=== PATIENT | male | born 1935 | race African-American/Black ===

== ENCOUNTER 2017-05-01 04:37 | Inpatient (IN) ==
[2017-05-01] MEDS ORDERED: ALBUTEROL 2.5 MG/3 ML NEB RESP TX STA (04:52)
[2017-05-01] MEDS ORDERED: methylPREDNISolone SOD SUC 125 MG/2 ML VIAL IV STA ×2 (04:52→05:59)
[2017-05-01] MEDS ORDERED: methylPREDNISolone SOD SUC 125 MG/2 ML VIAL ONE ×2 (05:05→06:00)
[2017-05-01 05:17] LABS: Basophils # 0.1 10*3/uL (0.0-0.2); Basophils % 0.9 % (0.0-0.8); Eosinophils # 0.5 10*3/uL (0.0-0.87); Eosinophils % 9.1 % (0.00-10.9); Hematocrit 39.8 VOL% (42.0-52.0); Hemoglobin 13.7 GM/DL (14.0-18.0); Immature Granulocytes % 0.4 %; Immature Granulocytes Absolute 0.02 #; Lymphocytes # 1.5 10*3/uL (1.4-4.0); Lymphocytes % 28.1 % (21.2-54.2); Mean Corpuscular HGB Conc 34.4 GM/DL (32-36); Mean Corpuscular Hemoglobin 32 PG (27-34); Mean Corpuscular Volume 91.9 FL (87-102); Mean Platelet Volume 10.4 FL (9.6-12.0); Monocytes # 0.8 10*3/uL (0.11-0.8); Monocytes % 14.9 % (1.7-12.7); Neutrophils # 2.5 10*3/uL (1.4-7.4); Neutrophils % 46.6 % (38.7-73.9); Platelet Count 272 T/CUMM (130-400); Red Blood Count 4.33 MC/CUMM (3.8-5.5); Red Cell Distribution Width 12.6 % (9.3-17.3); White Blood Count 5.4 T/CUMM (4-12)
--- NOTE | 2017-05-01 05:19 | Emergency Department Note ---
Adrian Boone Hilary, am scribing for, and in the presence of, Benedict Xiao MD 04:55. Dameon Boone Robert M, MD, personally performed the services described in this documentation, ascribed by Regi Campbell in my presence, and it is both accurate and complete 519 . Arrival - Arrival Chief Complaint: Shortness of Breath Stated Complaint: sob ED Nursing Triage Note: Pt brought in by EMS with c/o SOB that started 2 days ago ,but gotten worse tonight. Pt was given albuterol per EMS and is breatheing better after treatment. Pt does has hx copd. No distress noted at this time. Mode of Arrival: Stretcher Limitations: No Limitations Source: Patient, RN Notes Reviewed Time Seen by Provider: 05/01/17 04:48 - History of Present Illness HPI Narrative: Pt is a 82 y/o black male brought into the ED via EMS with c/o shortness of breath which onset 3 days ago. Pt states that his at home oxygen isn't helping and that his SOB worsened today. No other complaints or problems stated in the ED. Onset (ago): day(s) Consistency: constant Severity: moderate Severity scale (1-10): 3 Allergies/Adverse Reactions: Allergies Allergy/AdvReac Type Severity Reaction Status Date / Time Penicillins AdvReac Unknown Unknown/Unable Verified 05/01/17 04:49 to obtain Home Medications: Home Medications Medication Instructions Recorded Confirmed Type Ranitidine Tab [Zantac Tab] 150 mg PO BID 03/28/16 05/01/17 History Tamsulosin HCl 0.4 mg PO BID 03/28/16 05/01/17 History Albuterol Sulfate [Ventolin HFA] 2 puff INH Q4H PRN 10/01/16 05/01/17 History Hydrocodone/Acetaminophen 7.5 05/01/17 History [Hydrocodon-Acetaminoph 7.5-325] Triamterene/Hydrochlorothiazid PO DAILY 05/01/17 History [Triamterene-Hctz 37.5-25 mg Cp] Review of System - Review of System 12 point system: reviewed and no additional remarkable complaints except as stated - Review of System Constitutional: Absent: fever Respiratory: Present: respiratory distress (SOB) Cardiovascular: Absent: chest pain Medical,Surgical,& Family Hx - Medical History Cardio: History of: Hypertension No history of: Cerebrovascular Disease, CHF, CAD, VT, Valvular Heart Disease Neurology: No history of: Brain Aneurysm, Cerebral Hemorrhage, Cerebrovascular Accident , TIA, Vertigo Endocrine: No history of: Diabetes Mellitus (NIDDM) Respiratory: History of: COPD (O2 dependent) Genitourinary: History of: Bladder Problem (BPH), Kidney Stones Gastrointestinal: History of: 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; Abnormal CT in March 2016), GI Problems (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; hiatal hernia;) Musculoskeletal: History of: Musculoskeletal Problems (large "cyst" to right upper chest/ shoulder; arthritis) Hematology: History of: Clotting Problems (DVT right leg) Other: No history of: Anesthesia Reactions - Surgical History Neurologic Surgeries: Patient denies: Brain Aneurysm, Cerebral Hemorrhage Abdominal Surgeries: Surgical HX of: Abdominal Surgery, Appendectomy, Cholecystectomy, Colonoscopy, EGD Reproductive Surgeries: Patient denies;: Genitourinary Surgery - Family History Family History: Reports;: Family Hypertension (Sister) - Social History Smoking Status: Former smoker Frequency of Alcohol Use: None Type of Drug Use: None Exam Vital Signs: Vital Signs Temperature 97.1 F L 05/01/17 04:48 Pulse Rate 86 05/01/17 05:15 Respiratory Rate 22 05/01/17 05:15 Blood Pressure 156/89 05/01/17 04:42 O2 Sat by Pulse Oximetry 100 05/01/17 05:15 - General General appearance: alert, in distress (moderate distress) - Head Head exam: Present: atraumatic, normocephalic - Eye Eye exam: Present: normal appearance, PERRL, EOMI - ENT ENT exam: Present: mucous membranes moist, TM's normal bilaterally. Absent: mucous membranes dry - Neck Neck exam: Present: full ROM, trachea midline. Absent: tenderness - Chest Chest inspection: Present: symmetric chest wall rise. Absent: tenderness - Respiratory Respiratory exam: Present: wheezes, other (speaks in 3-4 word sentences) - Cardiovascular Cardiovascular exam: Present: regular rate, normal rhythm, normal heart sounds. Absent: murmur, rubs, gallop - Abdominal Exam Abdominal exam: Present: soft, normal bowel sounds. Absent: distention, tenderness - Extremities Exam Extremities exam: Present: full ROM. Absent: tenderness - Back Exam Back exam: Present: full ROM. Absent: tenderness - Neurological Exam Neurological exam: Present: alert, oriented X3, CN II-XII intact. Absent: motor sensory deficit - Psychiatric Psychiatric exam: Present: normal affect, normal mood - Skin Skin exam: Present: warm, dry, intact, normal color. Absent: rash Course - Consultations Consultation #1: Dr. Villalta will admit the patient to hospitalist service. Time: 05:44 Results - Labs CBC & BMP: 05/01/17 05:12 Lab Results: I have reviewed the patients labs - EKG EKG results: interpreted by ERMD, WNL, sinus rhythm - Diagnostic Findings Procedure: Chest x-ray: image reviewed by me (Right basilar costophrenic blunting unchanged from previous studies. No acute airspace opacity.) Disposition Clinical Impression: Acute exacerbation of chronic obstructive airways disease, On home oxygen therapy Case discussed with: patient, patient's family Disposition: Still a Patient Condition: Stable Time of Disposition: 05:44
[2017-05-01 05:43] LABS: Albumin 3.9 G/DL (3.4-5.0); Calcium 9.4 MG/DL (8.5-10.1); Osmolality,Calculated 279.3 MOS/KG (273-304); Potassium 4.3 MMOL/L (3.5-5.1); Total Protein 6.6 G/DL (6.4-8.3)
[2017-05-01 06:02] LABS: Apearance,Urine CLEAR (Clear); Bilirubin,Urine Negative (Negative); Blood, Urine Negative (Negative); Glucose,Urine (UA) Negative (Negative); Ketones,Urine Negative (Negative); Nitrite,Urine Negative (Negative); Protein,Urine Negative; RBC,Urine <1 /HPF (0-4); Squamous Epithelial Cell,Urine Occasional /HPF (0-10); Urine Color Straw (Yellow); Urine Specific Gravity 1.008 (1.001-1.035); Urine Urobilinogen < 2.0 EU/DL (0.2-1.0); WBC,Urine <1 /HPF (0-6)
[2017-05-01] MEDS ORDERED: ALBUTEROL 2.5 MG/3 ML NEB RESP TX PRN (06:11)
--- NOTE | 2017-05-01 06:11 | XRay Report ---
Portable chest Date: 05/01/2017 Clinical history: Shortness of breath Comparison: 03/10/2017 Technique: Portable AP sitting chest Findings: The heart remains normal in size. Chronic pleural and parenchymal findings at the right lung base. Tubular device projecting in this location. Stable mediastinum and osseous structures. Impression: Chronic scarring at the right lung base with residual atelectasis and pleural thickening which makes it difficult to exclude a persistent small right pleural effusion. Overlying tubular device. PROCEDURE INTERPRETED AT [facility] DEPARTMENT OF RADIOLOGY Final Report Signed by: Dr. Yoly Delgadillo
--- NOTE | 2017-05-01 06:20 | Hospitalist History & Physical ---
Assessment and Plan (1) Orthopnea Status: Acute Assessment and plan: Patient breathing is a lot better uncomfortable while seated with legs dangling on the bed. Chest x-ray does suggest pulmonary edema with cephalization of blood vessels are concerned that the patient may have a recent extent of diastolic dysfunction. His echocardiogram done in September 2016 did show preserved left ventricular function. I will request repeat of the echocardiogram on this admission. Current Visit: Yes (2) Accelerated hypertension Status: Acute Assessment and plan: Resume home medication. We will give the patient some hydralazine 10 mg IV for systolic blood pressure greater than 180. States his home medication for blood pressure if there is use of TRAMAINE inhibitor as depressed thoughts with an angiotensin receptor sajan. Current Visit: Yes (3) Abnormal EKG Status: Acute Current Visit: Yes (4) Acute exacerbation of chronic obstructive airways disease Status: Acute Assessment and plan: Aggressive systemic steroid use aggressive beta 2 agonist use and use of ipratropium bromide. Patient should have sputum evaluated for possible lower respiratory infection also evaluate for fungal elements for fear possibility of allergic bronchospastic aspergillosis. Also check IgE levels. Current Visit: Yes History of Present Illness Chief complaint: Respiratory distress/orthopnea History of present illness: Mr. Mitchell is a 82 year old male brought into the ED via EMS with c/o shortness of breath which onset 3 days ago. Pt states that his at home oxygen isn't helping and that his SOB worsened today. I noticed that patient has significant orthopnea especially of her being moved. Patient also has accelerated hypertension. I looked at his chest x-ray which shows no consolidation by the prominence of blood vessels in the upper lung simpson. Also noted tenting of the diaphragm on the right side. Echocardiogram done September 2016 showed an EF about 60%. No intracardiac chamber masses. No mention of diastolic dysfunction at that time it looks like it to him is been. The possibility of vegetations. It may be nice to repeat an echocardiogram targeting cardiac function at this time. Home Medications Medication Instructions Recorded Confirmed Type Ranitidine Tab [Zantac Tab] 150 mg PO BID 03/28/16 05/01/17 History Tamsulosin HCl 0.4 mg PO BID 03/28/16 05/01/17 History Albuterol Sulfate [Ventolin HFA] 2 puff INH Q4H PRN 10/01/16 05/01/17 History Hydrocodone/Acetaminophen 7.5 05/01/17 History [Hydrocodon-Acetaminoph 7.5-325] Triamterene/Hydrochlorothiazid PO DAILY 05/01/17 History [Triamterene-Hctz 37.5-25 mg Cp] Allergies Allergy/AdvReac Type Severity Reaction Status Date / Time Penicillins AdvReac Unknown Unknown/Unable Verified 05/01/17 04:49 to obtain Medical,Surgical,& Family Hx - Medical History Cardio: History of: Hypertension No history of: Cerebrovascular Disease, CHF, CAD, CT, Valvular Heart Disease Neurology: No history of: Brain Aneurysm, Cerebral Hemorrhage, Cerebrovascular Accident , TIA, Vertigo Endocrine: No history of: Diabetes Mellitus (NIDDM) Respiratory: History of: COPD (O2 dependent) Genitourinary: History of: Bladder Problem (BPH), Kidney Stones Gastrointestinal: History of: 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; Abnormal CT in March 2016), GI Problems (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; hiatal hernia;) Musculoskeletal: History of: Musculoskeletal Problems (large "cyst" to right upper chest/ shoulder; arthritis) Hematology: History of: Clotting Problems (DVT right leg) Other: No history of: Anesthesia Reactions - Surgical History Neurologic Surgeries: Patient denies: Brain Aneurysm, Cerebral Hemorrhage Abdominal Surgeries: Surgical HX of: Abdominal Surgery, Appendectomy, Cholecystectomy, Colonoscopy, EGD Reproductive Surgeries: Patient denies;: Genitourinary Surgery - Family History Family History: Reports;: Family Hypertension (Sister) - Social History Smoking Status: Former smoker Frequency of Alcohol Use: None Type of Drug Use: None Review of systems: 12 point system assessment was done. Patient is obviously short of breath with a very poor exercise tolerance. There is orthopnea. There is diffuse wheezing. Tachycardia and accelerated hypertension noted. Complaining of left shoulder pain with limitation of movement in that shoulder. He has got a huge synovial cyst into the anterior aspect of the right shoulder which is this is been there since her last year. Denies acute injury to the left shoulder is possibility of rotator cuff injury given the nature limitation of movement. Exam - Constitutional Vitals: Period Temp Pulse Resp BP Sys/Garcia Pulse Ox Last 24 Hr 97.1 F-97.1 F 81-91 22-26 156-156/89-89 98-100 General appearance: under weight, other (Possible pulmonary cachexia moderate respiratory distress) - Head Head exam: Present: normocephalic, atraumatic - Eye Eye exam: Present: EOMI Pupils: Present: KRISTINA - ENT ENT exam: Present: normal oropharynx - Neck Neck exam: Present: normal inspection, other (Neck is supple no adenopathy no thyromegaly midline trachea no stridor) - Respiratory Respiratory exam: Present: other (Bilateral wheezing distant lung sounds prolonged expiratory phase) - Cardiovascular Cardiovascular exam: Present: tachycardia, other (Sinus control) - GI/Abdominal GI/Abdominal exam: Present: normal bowel sounds, soft - Extremities Exam Extremities exam: Present: other (Significant limitation of movement of the left shoulder patient complaining of pain in that shoulder. No ocular cyanosis no clubbing of the digits) - Neurological Exam Neurological exam: Present: alert, oriented X3, CN II-XII intact - Psychiatric Psychiatric exam: Present: anxious, other (Respiratory distress) - Skin Skin exam: Present: normal color, warm, dry Results - Labs CBC & BMP: 05/01/17 05:12 05/01/17 05:12 Lab Results: I have reviewed the past 24 hour labs
[2017-05-01] MEDS ORDERED: ALBUTEROL/IPRATROPIUM 3 ML NEB RESP TX PRN (06:33)
[2017-05-01 07:18] LABS: Calcium 9.4 MG/DL (8.5-10.1); Osmolality,Calculated 279.3 MOS/KG (273-304); Potassium 4.4 MMOL/L (3.5-5.1)
--- NOTE | 2017-05-01 07:54 | EKG Report ---
Stationary ECG Study [facility] ER Test Date: 05/01/2017 4:45:51 AM Pat Name: YANI NGUYEN Department: Room: EDWAIT Gender: M Rail Operator: SR : [id number] Requested by: Benedict Xiao Order Number: [id number] Reading MD: MARLYN BARBER Intervals [place] Rate: 82 P: 88 OR: 187 QRS: 87 QRSD: 86 T: 89 QT: 351 QTc: 390 Interpretive Statements SINUS RHYTHM POSSIBLE ANTERIOR MYOCARDIAL INFARCTION, PREVIOUSLY PRESENT IN 02/11/2017 TRACING Electronically Signed On 05-02-17 07:07:48 CDT by MARLYN BARBER [email or web address]
[2017-05-01] MEDS: ALBUTEROL/IPRATROPIUM 3 ML NEB RESP TX SCH ×3 (08:00→21:00)
[2017-05-01] MEDS ORDERED: TRIAMTERENE/HCTZ 37.5-25 MG CAPSULE PO SCH (09:00)
[2017-05-01] MEDS: TAMSULOSIN 0.4 MG CAPSULE PO SCH ×2 (09:13→21:06)
[2017-05-01] MEDS: amLODIPine 5 MG TABLET PO SCH (09:13)
[2017-05-01] MEDS: methylPREDNISolone SOD SUC 125 MG/2 ML VIAL IV SCH ×2 (09:13→16:00)
[2017-05-01] MEDS: FAMOTIDINE 20 MG TABLET PO SCH ×2 (10:32→21:06)
[2017-05-01] MEDS: MONTELUKAST 10 MG TABLET PO SCH (10:32)
--- NOTE | 2017-05-01 11:48 | ECHO Report ---
Asif Mitchell 05/01/2017 Exam Date: 08:37 Referring Physician: Paradise Templeton Technologist: TOAN Age: 82 Ht (in): 64 Wt (lb): 127 MExam Location: [facility] Gender: Echo [id number]: SOB, HTN, COPD, orthopnea, edemaIndications: BP: / HR: sinus arrythmiaRhythm: Technically difficult studyTechnical Quality: IMPRESSIONS Normal chamber sizes Normal to hyperdynamic LV systolic function with ejection fraction estimated 65-70% without segmental wall abnormality Aortic sclerosis without stenosis 1+ tricuspid regurgitation with RVSP 18 mmHg plus RAP MEASUREMENTS (Male / Female) Normal Values 2D ECHO LV Diastolic Diameter PLAX 2.5 cm 4.2 - 5.9 / 3.9 - 5.3 cm LV Systolic Diameter PLAX 1.4 cm LV Fractional Shortening PLAX 41.7 % IVS Diastolic Thickness 1.1 cm 0.6 - 1.0 / 0.6 - 0.9 cm LVPW Diastolic Thickness 1.0 cm 0.6 - 1.0 / 0.6 - 0.9 cm RV Internal Dim ED PLAX 3.3 cm Aortic Root Diameter 2.6 cm LA Systolic Diameter LX 2.8 cm 3.0 - 4.0 / 2.7 - 3.8 cm DOPPLER TR Peak Velocity 209.0 cm/s TR Peak Gradient 17.5 mmHg FINDINGS Left Ventricle Mildly increased septal wall thickness. Mild concentric left ventricular hypertrophy with diastolic dysfunction. Left ventricular ejection fraction is estimated at Right Ventricle Mildly increased right ventricular size. Right Atrium Normal right atrial size. Left Atrium Normal left atrial size. Mitral Valve Mild mitral valve sclerosis. Mild mitral valve regurgitation. Aortic Valve Mild aortic valve sclerosis. Tricuspid Valve Morphologically normal tricuspid valve. Mild tricuspid valve regurgitation. Tricuspid regurgitation velocities suggest a PAP of 27 mmHg. Pulmonic Valve Morphologically normal pulmonic valve. Pericardium No pericardial effusion. + pleural effusion. Aorta Normal size aortic root and proximal ascending aorta. Jacques Jarrell (Electronically Signed) 01 May 2017 Final Date: 11:47
--- NOTE | 2017-05-01 15:56 | Magnetic Resonance Report ---
Referring Physician: Kameron Jade Exam: MRI left shoulder without contrast Date: May 01, 2017 Reason: Limited range of motion, left shoulder pain, rotator cuff tear Comparison: None Technique: MRI of the left shoulder was performed without the use of contrast. Obtained sequences include axial T2*, axial proton density fat sat, sagittal/coronal T1, coronal T2 and coronal/sagittal sagittal T2 fat sat sequences. A 1.2 Nadia open magnet was used. Findings: Motion artifact is present and degrades the quality of study. There is a partial-thickness articular surface tear of the distal supraspinatus tendon near its humeral insertion. This extends to the infraspinatus tendon. There is also a partial-thickness articular surface tear of the supraspinatus tendon, located 1.8 cm proximal to its humeral insertion. A focal full-thickness tear without significant retraction is not excluded at the anterior fibers of the distal supraspinatus. There is likely mild tendinosis at the distal subscapularis tendon, but motion artifact makes confirmation difficult. The teres minor appears intact. There is moderate degenerative change at the left acromioclavicular joint with mild subchondral edema and a joint effusion. There is also minimal subacromial/subdeltoid bursitis. The biceps tendon is in normal anatomic position. There is increased signal within the intra-articular biceps tendon on the proton density images. This could represent artifact or a partial-thickness tear. A partial-thickness tear is favored. No full-thickness biceps tear is identified. No acute fracture or osseous destructive process is identified. No asymmetric muscle atrophy is seen. There is a small effusion at the left glenohumeral joint. Evaluation of the cartilage is difficult, but there is a small subchondral cyst at the posterior glenoid where there may be overlying chondral thinning. Evaluation of the labrum is limited, but degenerative change is suspected, especially at the posterior labrum where there may be a chronic tear. Evaluation of the axilla is limited by motion artifact, but there are nonspecific prominent draining veins at the left shoulder and visualized left chest wall. Impression: 1. There is a partial-thickness tear at the distal supraspinatus tendon near its humeral insertion. This extends to the infraspinatus tendon. There is also a partial-thickness articular surface tear of the supraspinatus tendon, located 1.8 cm proximal to its humeral insertion. 2. Possible focal full-thickness tear without significant retraction at the anterior fibers of the distal supraspinatus tendon near its humeral insertion. 3. There is likely mild tendinosis of the distal subscapularis tendon. However, motion artifact makes confirmation difficult. 4. Suspected partial thickness tear of the intra-articular biceps tendon. 5. Small effusion at the left glenohumeral joint. 6. There is minimal subchondral cyst formation within the posterior glenoid. Evaluation of the labrum is limited, but degenerative change is suspected at the labrum, especially posteriorly where there may be a chronic tear. 7. There appear to be mildly prominent draining veins at the left shoulder and visualized left chest, but evaluation is limited by motion artifact. PROCEDURE INTERPRETED AT [facility] DEPARTMENT OF RADIOLOGY Final Report Signed by: Dr. Angelique Stroud
[2017-05-02] MEDS: methylPREDNISolone SOD SUC 125 MG/2 ML VIAL IV SCH ×4 (00:08→22:41)
[2017-05-02] MEDS: ALBUTEROL/IPRATROPIUM 3 ML NEB RESP TX SCH ×4 (00:19→20:17)
[2017-05-02 07:18] LABS: Basophils % 0.1 % (0.0-0.8); Hematocrit 35.5 VOL% (42.0-52.0); Hemoglobin 12.2 GM/DL (14.0-18.0); Immature Granulocytes % 0.4 %; Immature Granulocytes Absolute 0.04 #; Lymphocytes # 0.6 10*3/uL (1.4-4.0); Lymphocytes % 6.3 % (21.2-54.2); Mean Corpuscular HGB Conc 34.4 GM/DL (32-36); Mean Corpuscular Hemoglobin 31 PG (27-34); Mean Corpuscular Volume 90.3 FL (87-102); Monocytes # 0.5 10*3/uL (0.11-0.8); Monocytes % 4.9 % (1.7-12.7); Neutrophils # 8.7 10*3/uL (1.4-7.4); Neutrophils % 88.3 % (38.7-73.9); Platelet Count 270 T/CUMM (130-400); Red Blood Count 3.93 MC/CUMM (3.8-5.5); Red Cell Distribution Width 12.5 % (9.3-17.3); White Blood Count 9.8 T/CUMM (4-12)
[2017-05-02 07:45] LABS: Calcium 9.5 MG/DL (8.5-10.1); Magnesium 1.9 MG/DL (1.8-2.4); Osmolality,Calculated 282.3 MOS/KG (273-304); Potassium 4.2 MMOL/L (3.5-5.1)
[2017-05-02] MEDS: TRIAMTERENE/HCTZ 37.5-25 MG CAPSULE PO SCH (08:06)
[2017-05-02] MEDS: FAMOTIDINE 20 MG TABLET PO SCH ×2 (08:07→20:31)
[2017-05-02] MEDS: TAMSULOSIN 0.4 MG CAPSULE PO SCH ×2 (08:07→20:31)
[2017-05-02] MEDS: amLODIPine 5 MG TABLET PO SCH (08:08)
[2017-05-02] MEDS: MONTELUKAST 10 MG TABLET PO SCH (08:08)
--- NOTE | 2017-05-02 10:42 | Physician Query Form ---
CLICK EDIT DOCUMENT TO SELECT QUERY ANSWER --> OK --> SIGN Nelia Noonan RN Clinical Lopper W) [phone] (f) [phone] [email or web address]: Make your selection(s) from the choices in EACH section by typing an "x" and enter comments in the comment section. Please use your independent medical judgment in providing your response. This request does not imply that any particular answer is desired or expected. CLINICAL INDICATORS: (Providers should not edit this section) Based on documentation of "COPD, O2 dependent. Pt states that his at home oxygen isn't helping and that his SOB worsened today". Based on the above, could you clarify the appropriate diagnosis, if significant , that supports the above abnormalities and additional evaluation, monitoring, and/or treatment rendered: ( ) Pt. has chronic respiratory failure ( ) Pt. does not have chronic respiratory failure ( x) Other, please specify: ( ) Clinically unable to determine COMMENTS: Chronic respiratory failure with acute exacerbation PLEASE ALSO DOCUMENT RESPONSE IN PROGRESS NOTES AND/OR DISCHARGE SUMMARY Use of terms such as suspected, likely, or probable (associated with a specific diagnosis that is being evaluated, monitored, or treated as if it exists) are acceptable and can be restated in the discharge summary if not ruled out. MTDD
--- NOTE | 2017-05-02 14:09 | Hospitalist Progress Note ---
Assessment and Plan (1) Accelerated hypertension Status: Acute Current Visit: Yes (2) Orthopnea Status: Acute Current Visit: Yes (3) COPD exacerbation Status: Acute Assessment and plan: Patient denied to me that he had any COPD history. I have looked at his previous admissions which include acute exacerbation of COPD. I do feel that that is what is going on with this patient. His chest x-ray did not have anything significant. Therefore I think we should continue with schedule breathing treatments and steroids. Blood pressure seems to be adequately controlled. Reevaluate patient in the morning. Current Visit: No Hospitalist: Subjective Interval history: Patient reports a short winded upon standing. Reports that his shortness of breath have improved marginally. Exam - Constitutional Vitals: Period Temp Pulse Resp BP Sys/Garcia Pulse Ox Last 24 Hr 98.6 F-99.9 F 67-108 16-22 117-143/56-75 92-99 General appearance: under weight - Head Head exam: Present: normal inspection - ENT ENT exam: Present: normal exam - Neck Neck exam: Present: normal inspection - Respiratory Respiratory exam: Present: wheezes (Bilaterally poor air movement) - Cardiovascular Cardiovascular exam: Present: regular rate and rhythm - GI/Abdominal GI/Abdominal exam: Present: normal bowel sounds - Extremities Exam Extremities exam: Present: normal inspection - Back Exam Back exam: Present: normal inspection Results - Labs CBC & BMP: 05/02/17 06:49 05/02/17 06:49
[2017-05-02] MEDS: LEVOFLOXACIN INJ 500 MG in PREMIX 1 EACH IV SCH (15:38)
[2017-05-03] MEDS: ALBUTEROL/IPRATROPIUM 3 ML NEB RESP TX SCH ×4 (00:56→20:02)
[2017-05-03] MEDS: methylPREDNISolone SOD SUC 125 MG/2 ML VIAL IV SCH ×2 (09:05→14:32)
[2017-05-03] MEDS: MONTELUKAST 10 MG TABLET PO SCH (09:05)
[2017-05-03] MEDS: TAMSULOSIN 0.4 MG CAPSULE PO SCH ×2 (09:06→21:41)
[2017-05-03] MEDS: amLODIPine 5 MG TABLET PO SCH (09:06)
[2017-05-03] MEDS: TRIAMTERENE/HCTZ 37.5-25 MG CAPSULE PO SCH (09:06)
[2017-05-03] MEDS: FAMOTIDINE 20 MG TABLET PO SCH ×2 (09:06→21:40)
--- NOTE | 2017-05-03 13:32 | Hospitalist Progress Note ---
Assessment and Plan - Time spent with patient Time spent with patient: Less than 30 minutes (1) Dyspnea on exertion Status: Acute Assessment and plan: Mr. Mitchell is an 82-year-old -[place] male admitted with COPD exacerbation, accelerated hypertension and dyspnea on exertion. Patient's blood pressure is under good control. He is still having some continued dyspnea on exertion. He is on Proventil nebs, duo nebs, Levaquin and 60 mg IV every 8 of methylprednisone. Will discuss with Dr. Adams if anything can be added or changed to help with patient's breathing. Patient also has left shoulder pain and MRI done shows multiple rotator cuff tears and biceps tendon tears. Have spoken with Dr. Cameron Neil and he says patient can follow-up with him in clinic as an outpatient upon discharge. Cristine will see and examined patient and further recommendations to follow. Current Visit: Yes (2) COPD exacerbation Status: Acute Current Visit: No Hospitalist: Subjective Interval history: Patient states he felt great yesterday but today he is having dyspnea on exertion again almost like he did upon admission. His appetite has improved though. Exam - Constitutional Vitals: Period Temp Pulse Resp BP Sys/Garcia Pulse Ox Last 24 Hr 98.2 F-99.3 F 60-106 18-20 115-153/55-79 92-100 Exam: 82-year-old -Emir[place] male, no acute distress, alert and oriented Chest is clear CV regular rate and rhythm Abdomen soft and nontender Extremities no edema Results - Labs CBC & BMP: 05/02/17 06:49 05/02/17 06:49 Lab Results: I have reviewed the past 24 hour labs
[2017-05-03] MEDS: LEVOFLOXACIN INJ 500 MG in PREMIX 1 EACH IV SCH (14:33)
[2017-05-04] MEDS: methylPREDNISolone SOD SUC 125 MG/2 ML VIAL IV SCH ×4 (00:21→22:00)
[2017-05-04] MEDS: ALBUTEROL/IPRATROPIUM 3 ML NEB RESP TX SCH ×4 (01:11→21:00)
[2017-05-04] MEDS: TAMSULOSIN 0.4 MG CAPSULE PO SCH ×2 (09:44→22:00)
[2017-05-04] MEDS: TRIAMTERENE/HCTZ 37.5-25 MG CAPSULE PO SCH (09:44)
[2017-05-04] MEDS: amLODIPine 5 MG TABLET PO SCH (09:44)
[2017-05-04] MEDS: MONTELUKAST 10 MG TABLET PO SCH (09:45)
[2017-05-04] MEDS: FAMOTIDINE 20 MG TABLET PO SCH ×2 (09:45→22:00)
[2017-05-04] MEDS: LEVOFLOXACIN INJ 500 MG in PREMIX 1 EACH IV SCH (14:39)
--- NOTE | 2017-05-04 14:54 | Hospitalist Progress Note ---
Assessment and Plan (1) COPD (chronic obstructive pulmonary disease) Status: Chronic Assessment and plan: COPD exacerbation. Continue with neb treatments. Current Visit: No (2) COPD exacerbation Status: Acute Assessment and plan: Continue with neb treatments. Broad-spectrum antibiotics. CBC BMP in a.m. Current Visit: No (3) Dyspnea on exertion Status: Chronic Assessment and plan: This is improving. Current Visit: Yes Hospitalist: Subjective Interval history: Patient sitting up in bed states his breathing is still short. Sats have been acceptable does require oxygen therapy. No fevers or chills. CBC BMP in a.m. Exam - Constitutional Vitals: Period Temp Pulse Resp BP Sys/Garcia Pulse Ox Last 24 Hr 97.9 F-99.0 F 65-123 16-26 115-154/55-90 94-98 General appearance: normal weight - Head Head exam: Present: normal inspection - Eye Pupils: Present: KRISTINA - Respiratory Respiratory exam: Present: wheezes (Expiratory wheeze) - Cardiovascular Cardiovascular exam: Present: regular rate and rhythm - GI/Abdominal GI/Abdominal exam: Present: normal bowel sounds - Extremities Exam Extremities exam: Present: full ROM - Psychiatric Psychiatric exam: Present: normal affect - Skin Skin exam: Present: normal color Results - Labs CBC & BMP: 05/02/17 06:49 05/02/17 06:49
[2017-05-05] MEDS: ALBUTEROL/IPRATROPIUM 3 ML NEB RESP TX SCH ×4 (01:05→19:21)
[2017-05-05 05:00] LABS: Hematocrit 38.7 VOL% (42.0-52.0); Hemoglobin 13.1 GM/DL (14.0-18.0); Immature Granulocytes % 0.7 %; Immature Granulocytes Absolute 0.05 #; Lymphocytes # 0.4 10*3/uL (1.4-4.0); Mean Corpuscular HGB Conc 33.9 GM/DL (32-36); Mean Corpuscular Hemoglobin 31 PG (27-34); Mean Corpuscular Volume 90.8 FL (87-102); Mean Platelet Volume 11.3 FL (9.6-12.0); Monocytes # 0.5 10*3/uL (0.11-0.8); Monocytes % 6.7 % (1.7-12.7); Neutrophils # 6.1 10*3/uL (1.4-7.4); Neutrophils % 87.6 % (38.7-73.9); Platelet Count 232 T/CUMM (130-400); Red Blood Count 4.26 MC/CUMM (3.8-5.5); Red Cell Distribution Width 12.4 % (9.3-17.3)
[2017-05-05 05:36] LABS: Calcium 8.8 MG/DL (8.5-10.1); Osmolality,Calculated 279.7 MOS/KG (273-304); Potassium 4.6 MMOL/L (3.5-5.1)
[2017-05-05] MEDS: methylPREDNISolone SOD SUC 125 MG/2 ML VIAL IV SCH ×2 (06:03→15:24)
[2017-05-05] MEDS: amLODIPine 5 MG TABLET PO SCH (08:10)
[2017-05-05] MEDS: MONTELUKAST 10 MG TABLET PO SCH (08:10)
[2017-05-05] MEDS: TAMSULOSIN 0.4 MG CAPSULE PO SCH ×2 (08:10→21:28)
[2017-05-05] MEDS: TRIAMTERENE/HCTZ 37.5-25 MG CAPSULE PO SCH (08:10)
[2017-05-05] MEDS: FAMOTIDINE 20 MG TABLET PO SCH ×2 (08:10→21:28)
--- NOTE | 2017-05-05 11:54 | Hospitalist Progress Note ---
Assessment and Plan (1) Dyspnea on exertion Status: Chronic Assessment and plan: Pt states he has not experienced any dyspnea on exertion overnight. Pt. is still requiring oxygen but has sats reported in the 95-99% range. Current Visit: Yes (2) Acute exacerbation of chronic obstructive airways disease Status: Acute Assessment and plan: Pt. on supplemental O2. Pt. is receiving breathing treatments and steroids injections (Solumedrol q8). Pt. also on IV antibiotic (Levaquin) Current Visit: Yes (3) Accelerated hypertension Status: Acute Assessment and plan: Pt. has been restarted on home medications. Pt's bp is stable. Current Visit: Yes Hospitalist: Subjective Interval history: Mr. Mitchell was seen and examined. Pt. was sitting on side of bed with no apparent distress noted. O2 in place. Pt. denies any shortness of breath or pain. Pt. denies any complaints overnight. Will continue to monitor. Exam - Constitutional Vitals: Period Temp Pulse Resp BP Sys/Garcia Pulse Ox Last 24 Hr 98.5 F-99 F 67-118 16-20 120-146/59-76 94-99 General appearance: normal weight, no acute distress - Head Head exam: Present: normal inspection, normocephalic - Eye Eye exam: Present: EOMI Pupils: Present: KRISTINA - Neck Neck exam: Absent: thyromegaly - Cardiovascular Cardiovascular exam: Present: regular rate and rhythm - GI/Abdominal GI/Abdominal exam: Present: normal bowel sounds, soft. Absent: tenderness - Extremities Exam Extremities exam: Present: normal inspection, full ROM. Absent: edema - Neurological Exam Neurological exam: Present: alert, oriented X3 - Psychiatric Psychiatric exam: Present: normal affect, normal mood - Skin Skin exam: Present: normal color, warm, dry Results - Labs CBC & BMP: 05/05/17 03:56 05/05/17 03:56 Lab Results: I have reviewed the past 24 hour labs
[2017-05-05] MEDS: LEVOFLOXACIN INJ 500 MG in PREMIX 1 EACH IV SCH (15:22)
[2017-05-05] MEDS: methylPREDNISolone SOD SUC 40 MG/1 ML VIAL IV SCH (23:39)
[2017-05-06] MEDS: ALBUTEROL/IPRATROPIUM 3 ML NEB RESP TX SCH ×4 (00:18→19:44)
[2017-05-06] MEDS: MONTELUKAST 10 MG TABLET PO SCH (10:45)
[2017-05-06] MEDS: methylPREDNISolone SOD SUC 40 MG/1 ML VIAL IV SCH (10:45)
[2017-05-06] MEDS: TAMSULOSIN 0.4 MG CAPSULE PO SCH ×2 (10:46→21:01)
[2017-05-06] MEDS: amLODIPine 5 MG TABLET PO SCH (10:46)
[2017-05-06] MEDS: FAMOTIDINE 20 MG TABLET PO SCH ×2 (10:46→21:00)
[2017-05-06] MEDS: TRIAMTERENE/HCTZ 37.5-25 MG CAPSULE PO SCH (10:48)
--- NOTE | 2017-05-06 10:53 | XRay Report ---
XR chest 1V portable Indication: Shortness of breath. Chest one view: Comparison 05/01/2017 shows stable normal heart size and mediastinal contour, minimal pulmonary hyperinflation and scarring of both costophrenic sulci. Lungs are better aerated with decreased interstitial prominence from the previous exam. Impression: Improved aeration of the lungs since 5 days ago. PROCEDURE INTERPRETED AT [facility] DEPARTMENT OF RADIOLOGY Final Report Signed by: Glen Steele M.D.
--- NOTE | 2017-05-06 14:07 | Hospitalist Progress Note ---
Addendum entered and electronically signed by Myles Hare NP 05/06/17 15: 51: During assessment of patient - Pt was noted to have expiratory wheezes and was decreased bilaterally at the bases. Original Note: Assessment and Plan (1) Dyspnea on exertion Status: Chronic Assessment and plan: Pt states he has not experienced any dyspnea on exertion overnight. Pt. is still requiring oxygen but has sats reported in the 95-99% range. 05/06 Pt. reports being short of breath on exertion today. States that he is not able to move as much as before. Pt. still on O2. Breathing treatments ordered for exertional dyspnea. Current Visit: Yes (2) Acute exacerbation of chronic obstructive airways disease Status: Acute Assessment and plan: Pt. on supplemental O2. Pt. is receiving breathing treatments and steroids injections (Solumedrol q8). Pt. also on IV antibiotic (Levaquin) 05/06 Pt. steroids decreased to q12 hours. CXR this am showed 'improved aeration of the lungs'. Current Visit: Yes (3) Accelerated hypertension Status: Acute Assessment and plan: Pt. has been restarted on home medications. Pt's bp is stable. Current Visit: Yes Hospitalist: Subjective Interval history: Pt. seen and examined. Pt. complains of being short of breath. Deep breathing exercises encouraged. Support offered to patient. Stat breathing treatment ordered. RN called to bedside. VS stable. Pulse ox checked - pt is 95% on 2.5L of O2. Pt. calmed down. No other issues noted outside of breathing. Will continue to monitor patient. Exam - Constitutional Vitals: Period Temp Pulse Resp BP Sys/Garcia Pulse Ox Last 24 Hr 97.8 F-98.7 F 66-89 16-22 120-165/64-82 90-100 General appearance: mild distress - Head Head exam: Present: normal inspection, normocephalic - Eye Eye exam: Present: EOMI. Absent: scleral icterus Pupils: Present: KRISTINA - Cardiovascular Cardiovascular exam: Present: regular rate and rhythm - GI/Abdominal GI/Abdominal exam: Present: normal bowel sounds, soft. Absent: tenderness - Extremities Exam Extremities exam: Present: normal capillary refill, full ROM. Absent: edema - Neurological Exam Neurological exam: Present: alert, oriented X3 - Psychiatric Psychiatric exam: Present: anxious - Skin Skin exam: Present: normal color, warm, diaphoretic Results - Labs CBC & BMP: 05/05/17 03:56 05/05/17 03:56 Lab Results: I have reviewed the past 24 hour labs
[2017-05-06] MEDS: LEVOFLOXACIN INJ 500 MG in PREMIX 1 EACH IV SCH (16:07)
[2017-05-07] MEDS: ALBUTEROL/IPRATROPIUM 3 ML NEB RESP TX SCH ×4 (00:28→18:49)
[2017-05-07] MEDS: methylPREDNISolone SOD SUC 40 MG/1 ML VIAL IV SCH ×2 (00:50→11:57)
[2017-05-07] MEDS: MONTELUKAST 10 MG TABLET PO SCH (08:25)
[2017-05-07] MEDS: TRIAMTERENE/HCTZ 37.5-25 MG CAPSULE PO SCH (08:25)
[2017-05-07] MEDS: TAMSULOSIN 0.4 MG CAPSULE PO SCH ×2 (08:25→22:27)
[2017-05-07] MEDS: FAMOTIDINE 20 MG TABLET PO SCH ×2 (08:25→22:27)
[2017-05-07] MEDS: amLODIPine 5 MG TABLET PO SCH (08:25)
--- NOTE | 2017-05-07 09:05 | Pulmonology Consult Note ---
Assessment and Plan (1) On home oxygen therapy Status: Acute Assessment and plan: The patient says he does have home oxygen. His O2 saturations are adequate at present. Current Visit: Yes (2) Acute exacerbation of chronic obstructive airways disease Status: Acute Assessment and plan: Patient has significant COPD and comes in with acute exacerbation. He probably does not have much reversible disease. Will try him on some long-acting bronchodilators and let him go home on a tapering dose of prednisone and we can check his PFTs in the office. Current Visit: Yes (3) Accelerated hypertension Status: Acute Assessment and plan: His blood pressure and heart rate are under good control at present. Current Visit: Yes History of Present Illness Chief complaint: Shortness of breath History of present illness: Mr. Mitchell is a 82 year old black male that apparently has a long history of COPD. I saw him in the hospital last year when he had an exacerbation of his COPD. He does have home O2 and uses albuterol frequently. He came in over the weekend with worsening shortness of breath for several days. He has some cough but not much sputum production. He has not been having any fever or chest pain. He says it pulls when he tries to walk around. Otherwise his shortness of breath is better. He has had no cardiac problems. He is a former smoker. He does have significant COPD. Home Medications Medication Instructions Recorded Confirmed Type Ranitidine Tab [Zantac Tab] 150 mg PO BID 03/28/16 05/01/17 History Tamsulosin HCl 0.4 mg PO BID 03/28/16 05/01/17 History Albuterol Sulfate [Ventolin HFA] 2 puff INH Q4H PRN 10/01/16 05/01/17 History HYDROcodone/ACETAMIN 7.5-325 1 tablet PO TID 05/01/17 05/01/17 History [[place] 7.5-325] Triamterene/Hydrochlorothiazid 1 tablet PO DAILY 05/01/17 05/01/17 History [Triamterene-Hctz 37.5-25 mg Cp] Allergies Allergy/AdvReac Type Severity Reaction Status Date / Time Penicillins AdvReac Unknown Unknown/Unable Verified 05/01/17 04:49 to obtain - Constitutional Constitutional: Present: fatigue, weight loss. Absent: chills, fever(s) - EENT Eyes: Absent: loss of vision Ears: Absent: decreased hearing Nose, mouth and throat: Absent: dysphagia, headache(s), sinus pressure - Cardiovascular Cardiovascular: Present: dyspnea. Absent: chest pain at rest, chest pain with activity, edema, palpitations - Respiratory Respiratory: Present: cough, dyspnea, wheezing. Absent: hemoptysis, pain on inspiration, change in phlegm color - Gastrointestinal Gastrointestinal: Absent: abdominal pain, change in bowel habits, dysphagia, nausea, vomiting - Genitourinary Genitourinary: Absent: dysuria, hematuria, urinary frequency - Musculoskeletal Musculoskeletal: Absent: arthralgias - Neurological Neurological: Absent: abnormal speech, focal weakness, paresthesias - Psychiatric Psychiatric: Present: anxiety Exam (Pulmonay) H&P - Constitutional Vitals: Period Temp Pulse Resp BP Sys/Garcia Pulse Ox Last 24 Hr 96.8 F-98.2 F 68-87 16-22 96-143/60-85 94-99 General appearance: mild distress (Patient looks reasonably comfortable sitting up on low-flow oxygen.), under weight - Head Head exam: Present: normal inspection, normocephalic - Eye Eye exam: Present: EOMI. Absent: scleral icterus Pupils: Present: KRISTINA - ENT ENT exam: Present: normal exam - Neck Neck exam: Present: normal inspection. Absent: lymphadenopathy, thyromegaly - Respiratory Respiratory exam: Present: accessory muscle use, decreased breath sounds, prolonged expiratory phase, wheezes - Cardiovascular Cardiovascular exam: Present: regular rate and rhythm. Absent: gallop, systolic murmur - GI/Abdominal GI/Abdominal exam: Present: soft. Absent: distended, organomegaly, tenderness, rebound - Extremities Exam Extremities exam: Absent: calf tenderness, edema - Back Exam Back exam: Present: normal inspection - Neurological Exam Neurological exam: Present: alert, oriented X3, CN II-XII intact - Psychiatric Psychiatric exam: Present: normal affect - Skin Skin exam: Present: warm, dry Medical,Surgical,& Family Hx - Medical History Cardio: History of: Hypertension No history of: Cerebrovascular Disease, CHF, CAD, NC, Valvular Heart Disease Neurology: No history of: Brain Aneurysm, Cerebral Hemorrhage, Cerebrovascular Accident , TIA, Vertigo Endocrine: No history of: Diabetes Mellitus (NIDDM) Respiratory: History of: COPD (O2 dependent) Genitourinary: History of: Bladder Problem (BPH), Kidney Stones Gastrointestinal: History of: 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; Abnormal CT in March 2016), GI Problems (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; hiatal hernia;) Musculoskeletal: History of: Musculoskeletal Problems (large "cyst" to right upper chest/ shoulder; arthritis) Hematology: History of: Clotting Problems (DVT right leg) Other: No history of: Anesthesia Reactions - Surgical History Neurologic Surgeries: Patient denies: Brain Aneurysm, Cerebral Hemorrhage Abdominal Surgeries: Surgical HX of: Abdominal Surgery, Appendectomy, Cholecystectomy, Colonoscopy, EGD Reproductive Surgeries: Patient denies;: Genitourinary Surgery - Family History Family History: Reports;: Family Hypertension (Sister) - Social History Smoking Status: Former smoker Frequency of Alcohol Use: None Type of Drug Use: None Results - Labs CBC & BMP: 05/05/17 03:56 05/05/17 03:56 - Diagnostic Findings Procedure: Chest x-ray: image reviewed by me, report reviewed by me (Chest x- ray shows COPD changes but no infiltrates.)
[2017-05-07] MEDS: LEVOFLOXACIN INJ 500 MG in PREMIX 1 EACH IV SCH (14:35)
[2017-05-07] MEDS: BUDESONIDE 0.5 MG/2 ML NEB RESP TX SCH ×2 (14:35→18:49)
[2017-05-07] MEDS: ARFORMOTEROL 15 MCG/2 ML NEB RESP TX SCH ×2 (14:35→18:49)
--- NOTE | 2017-05-07 17:45 | Hospitalist Progress Note ---
Assessment and Plan (1) Acute exacerbation of chronic obstructive airways disease Status: Acute Assessment and plan: Plan for discharge home tomorrow with new inhalers and prednisone taper. Follow -up with Dr. Mcadams as an outpatient. Continue home oxygen and nebulizer treatments at home. Current Visit: Yes (2) Dyspnea on exertion Status: Chronic Current Visit: Yes Hospitalist: Subjective Interval history: Patient seen and examined. No acute events overnight. Case discussed with nursing staff. Labs reviewed. Conversationally dyspneic after his bath Exam - Constitutional Vitals: Period Temp Pulse Resp BP Sys/Garcia Pulse Ox Last 24 Hr 96.8 F-98.8 F 71-88 16-21 96-143/60-85 94-99 Exam: Constitutional System: Mild distress. No tremulousness. Head: Normocephalic, atraumatic. Ears, Nose and Throat System: No pain or tenderness. No epistaxis or discharge Eyes System: Pupils equal, round, and reactive. Extraocular muscles intact. Neck: Supple, without adenopathy, No jugular venous distention. No thyromegaly, neck mass, or prior surgery apparent. Respiratory System: Chest clear to auscultation. Cardiovascular System: Heart with regular rate and rhythm. No murmur. GI System: Abdomen soft, nontender. Normo active bowel sounds present. Musculoskeletal System: limbs with no pedal edema. Full distal pulses. Neurological System: No discernable sensory deficit. No aphasia Psychiatric System: Conversation is rational Results - Labs CBC & BMP: 05/05/17 03:56 05/05/17 03:56 Lab Results: I have reviewed the past 24 hour labs
[2017-05-08] MEDS: ALBUTEROL/IPRATROPIUM 3 ML NEB RESP TX SCH ×3 (00:03→13:30)
[2017-05-08] MEDS: methylPREDNISolone SOD SUC 40 MG/1 ML VIAL IV SCH ×2 (01:41→11:31)
[2017-05-08] MEDS: BUDESONIDE 0.5 MG/2 ML NEB RESP TX SCH (07:07)
[2017-05-08] MEDS: ARFORMOTEROL 15 MCG/2 ML NEB RESP TX SCH (07:07)
--- NOTE | 2017-05-08 09:02 | Pulmonology Progress Note ---
Pulmonary - PN: Subj Interval history: Patient is a 89-year-old black male has a long history of COPD. He comes in with acute exacerbation. He is feeling better now and is breathing a little easier. He says he is coughing up some secretions okay. He says he is able to walk to the bathroom without being short of breath. He is tolerating his medicines and feels better. Exam (Progress Note) - Constitutional Vitals: Period Temp Pulse Resp BP Sys/Garcia Pulse Ox Last 24 Hr 97.9 F-98.9 F 73-97 18-20 114-142/57-76 95-100 Exam: General appearance: no distress (Patient looks much better lying in bed and is quite comfortable.), under weight - Head Head exam: Present: normal inspection, normocephalic - Eye Eye exam: Present: EOMI. Absent: scleral icterus Pupils: Present: KRISTINA - ENT ENT exam: Present: normal exam - Neck Neck exam: Present: normal inspection. Absent: lymphadenopathy, thyromegaly - Respiratory Respiratory exam: Present: His lungs have distant breath sounds with prolonged expiration and very faint rhonchi. - Cardiovascular Cardiovascular exam: Present: regular rate and rhythm. Absent: gallop, systolic murmur - GI/Abdominal GI/Abdominal exam: Present: soft. Absent: distended, organomegaly, tenderness, rebound - Extremities Exam Extremities exam: Absent: calf tenderness, edema - Back Exam Back exam: Present: normal inspection - Neurological Exam Neurological exam: Present: alert, oriented X3, CN II-XII intact - Psychiatric Psychiatric exam: Present: normal affect - Skin Skin exam: Present: warm, dry Results - Labs CBC & BMP: 05/05/17 03:56 05/05/17 03:56 Assessment and Plan (1) On home oxygen therapy Status: Acute Assessment and plan: The patient says he does have home oxygen. His O2 saturations are adequate at present. He looks like his breathing is better. Current Visit: Yes (2) Acute exacerbation of chronic obstructive airways disease Status: Acute Assessment and plan: Patient has significant COPD and comes in with acute exacerbation. He says he feels better and is tolerating steroids and bronchodilator therapy. Current Visit: Yes (3) Accelerated hypertension Status: Acute Assessment and plan: His blood pressure and heart rate are under good control at present. He appears to be hemodynamically stable. Current Visit: Yes
[2017-05-08] MEDS: FAMOTIDINE 20 MG TABLET PO SCH (09:22)
[2017-05-08] MEDS: amLODIPine 5 MG TABLET PO SCH (09:22)
[2017-05-08] MEDS: MONTELUKAST 10 MG TABLET PO SCH (09:22)
[2017-05-08] MEDS: TAMSULOSIN 0.4 MG CAPSULE PO SCH (09:22)
[2017-05-08] MEDS: TRIAMTERENE/HCTZ 37.5-25 MG CAPSULE PO SCH (09:22)
--- NOTE | 2017-05-08 11:24 | Discharge Summary ---
<Myles Hare - Last Filed: 05/08/17 12:22> Hospital Course - Hospital Course Hospital Course: Ms. Mitchell is a 82-year-old black male patient who is a former smoker with a history of hypertension and COPD that presented to the ED via EMS on 05/01 with complaints of shortness of breath that began 3 days prior. At the time patient stated that his home O2 was not helping with a short of breath worsened which led to his calling EMS. Patient was evaluated in the ED and found to be in COPD exacerbation with accelerated hypertension and dyspnea on exertion. He was admitted to the hospitalist service for further evaluation and treatment. Patient was treated with Proventil nebs, duo nebs, Levaquin and Solu-Medrol IV. Patient initially had some issues with dyspnea on exertion but his condition improved. Chest x-ray on 05/06 showed improved aeration of the lungs. Pulmonology saw evaluated patient and agreed to tapering of steroid therapy. Pt. will follow up for PFTs as an outpatient. Today, patient is stable and ready for discharge. Diagnosis - Discharge Diagnosis (1) Dyspnea on exertion Status: Chronic (2) Acute exacerbation of chronic obstructive airways disease Status: Acute (3) Accelerated hypertension Status: Acute Discharge Plan - Discharge Data Disposition: Home Health Service - Discharge Medications New Albuterol/Ipratropium Neb [Duoneb] 3 ml RESP TX RT Q6H #100 vial amLODIPine [Norvasc] 5 mg PO DAILY #30 tablet Arformoterol Neb [Brovana] 15 mcg RESP TX RT BID #1 Levofloxacin Tab [Levaquin Tab] 500 mg PO DAILY #5 tablet methylPREDNISolone DOSEPAK [Medrol Dosepak] 4 mg PO DIRECTED #1 pack Budesonide Neb [Pulmicort Respules] 0.5 mg RESP TX RT BID #1 Montelukast Tab [Singulair Tab] 10 mg PO DAILY #30 tablet Continue Tamsulosin HCl 0.4 mg PO BID Ranitidine Tab [Zantac Tab] 150 mg PO BID Triamterene/Hydrochlorothiazid [Triamterene-Hctz 37.5-25 mg Cp] 1 tablet PO DAILY HYDROcodone/ACETAMIN 7.5-325 [[place] 7.5-325] 1 tablet PO TID Albuterol Sulfate [Ventolin HFA] 2 puff INH Q4H PRN #1 PRN Reason: Shortness Of Breath/Wheezing - Follow Up or Referral Follow Up: Lm Mcadams MD [Physician] - 2 Weeks - Forms/Instructions Exam - Constitutional Vitals: Period Temp Pulse Resp BP Sys/Garcia Pulse Ox Last 24 Hr 97.9 F-98.9 F 71-97 18-20 114-136/57-78 93-100 DS: Provider Date of admission: 05/01/17 06:05 Primary care physician: . No PCP Attending physician on admission: Nitish Villalta MD Consults: 05/06/17 16:38 Consult to Case Mgmt/Social Srvs [CONS] Routine Reason for Case Mgmt/Social Srvs: Equipment Consult Comment: pt wants to know if he qualifies for new nebulizer 05/06/17 17:03 Consult to Physician [CONS] Routine Comment: COPD exacerbation Consulting Provider: Demario Ferguson Consult to Specialist Group: Pulmonology When should Consulting Provider be notified: In am Person Notified: John Date Notified: 05/07/17 Time Notified: 09:40 Discharging clinician: Myles Hare NP <Mitzy Juarez - Last Filed: 05/08/17 13:03> Hospital Course - Time spent with patient Time with patient DS: Greater than 30 minutes (Total discharge time for this patient, including [id number] time, clinical documentation, medication reconciliation, and discharge planning was 42 minutes.) Diagnosis - Discharge Diagnosis (1) Acute exacerbation of chronic obstructive airways disease Status: Acute (2) Dyspnea on exertion Status: Chronic (3) Acute and chronic respiratory failure Status: Acute Discharge Plan - Discharge Data Condition at Discharge: Stable Discharge Diet: advance to your usual diet Activity: resume usual activities as tolerated Hygiene: no restrictions Contact your physician if you experience:: fever over 101, Difficulty voiding, Shortness of breath DS: Provider Expected date of discharge: 05/08/17
[2017-05-08] MEDS: LEVOFLOXACIN INJ 500 MG in PREMIX 1 EACH IV SCH (14:30)
[2017-05-08 16:21] VITALS: BP 133/68
== END 2017-05-08 17:55 | disposition home health service (06) | DRG 191 ==
LOC: N.ED 04:37 → N.EDINP 06:05 → SUATTDRO 06:05 → N.EDINP 08:36 → N.TELES 08:50
PROVIDERS: ADMIT Internal Medicine Infectious Disease; ATTEND Family Medicine

== ENCOUNTER 2018-05-28 09:32 | Inpatient (IN) ==
[2018-05-30 12:18] VITALS: BP 128/74
== END 2018-05-30 12:40 | disposition home or self-care (01) | DRG 191 ==
LOC: N.ED 09:32 → SUATTDRO 11:35 → N.EDINP 11:35 → N.2E 13:25
PROVIDERS: ADMIT Family Medicine; ATTEND Internal Medicine

== ENCOUNTER 2018-08-15 08:38 | Inpatient (IN) ==
[2018-08-15] MEDS ORDERED: MAGNESIUM SULF RIDER 2 GM in PREMIX 1 EACH IV STA (09:08)
[2018-08-15] MEDS ORDERED: methylPREDNISolone SOD SUC 125 MG/2 ML VIAL IV STA (09:08)
[2018-08-15 09:16] LABS: Basophils % 0.7 % (0.0-0.8); Eosinophils # 0.8 10*3/uL (0.0-0.87); Eosinophils % 14.3 % (0.00-10.9); Hematocrit 32.2 VOL% (42.0-52.0); Hemoglobin 10.3 GM/DL (14.0-18.0); Immature Granulocytes % 0.2 %; Immature Granulocytes Absolute 0.01 #; Lymphocytes # 0.7 10*3/uL (1.4-4.0); Mean Corpuscular Hemoglobin 28 PG (27-34); Mean Corpuscular Volume 86.8 FL (87-102); Mean Platelet Volume 12.4 FL (9.6-12.0); Monocytes # 0.7 10*3/uL (0.11-0.8); Monocytes % 12.8 % (1.7-12.7); Neutrophils # 3.2 10*3/uL (1.4-7.4); Platelet Count 196 T/CUMM (130-400); Red Blood Count 3.71 MC/CUMM (3.8-5.5); Red Cell Distribution Width 15.2 % (9.3-17.3); White Blood Count 5.4 T/CUMM (4-12)
[2018-08-15 09:22] LABS: INR 1.1; PT Patient Result 11.6 SECS; Partial Thromboplastin Time 29.5 SECS (0-40)
[2018-08-15] MEDS ORDERED: ALBUTEROL 2.5 MG/3 ML NEB RESP TX SCH (09:30)
[2018-08-15 09:31] LABS: Albumin 3.7 G/DL (3.4-5.0); Bilirubin,Total 0.5 MG/DL (0.2-1.0); Calcium 9.1 MG/DL (8.5-10.1); Osmolality,Calculated 278.4 MOS/KG (273-304); Potassium 4.3 MMOL/L (3.5-5.1); Total Protein 6.6 G/DL (6.4-8.3)
[2018-08-15 09:44] LABS: Eosinophils 12 % (0-10); Lymphocytes 14 % (20-55); Segmented Neutrophils 69 % (50-85); Total Cells Counted 100
[2018-08-15 09:46] LABS: Anisocytosis 1+; Ovalocytes Slight
[2018-08-15 09:47] LABS: Hypochromasia 1+
[2018-08-15 09:48] LABS: Microcytosis 1+
[2018-08-15 09:51] LABS: Acanthocytes Few
[2018-08-15 09:52] LABS: Platelet Estimate Normal
[2018-08-15] MEDS ORDERED: GLUCAGON 1 MG VIAL IM PRN (13:54)
[2018-08-15] MEDS ORDERED: ACETAMINOPHEN 325 MG TABLET PO PRN (13:54)
[2018-08-15] MEDS ORDERED: ONDANSETRON 4 MG/2 ML VIAL IV PRN (13:54)
[2018-08-15] MEDS ORDERED: DEXTROSE 50% 25 GM/50 ML VIAL IV PRN (13:54)
[2018-08-15] MEDS ORDERED: ENOXAPARIN 40 MG/0.4 ML SYRINGE SUBCUT SCH (14:00)
[2018-08-15] MEDS ORDERED: NON-FORMULARY MEDICATION (Umeclidinium Bromide [Incruse Ellipta] 1 PUFF) INH PRN (14:02)
[2018-08-15] MEDS ORDERED: ALBUTEROL 2.5 MG/3 ML NEB RESP TX PRN (14:16)
[2018-08-15] MEDS ORDERED: MAGNESIUM SULF RIDER 4 GM in PREMIX 1 EACH IV PRN (14:20)
[2018-08-15] MEDS ORDERED: MAGNESIUM SULF RIDER 2 GM in PREMIX 1 EACH IV PRN (14:20)
[2018-08-15] MEDS ORDERED: POTASSIUM CHLORIDE RIDER 10 MEQ in PREMIX 1 EACH IV PRN (14:20)
[2018-08-15] MEDS ORDERED: ARFORMOTEROL 15 MCG/2 ML NEB RESP TX SCH (15:00)
[2018-08-15] MEDS: ALBUTEROL/IPRATROPIUM 3 ML NEB RESP TX SCH ×2 (15:30→18:58)
[2018-08-15] MEDS ORDERED: INSULIN REGULAR 100 UNIT/ML SUBCUT SCH (16:30)
[2018-08-15] MEDS: BUDESONIDE 0.5 MG/2 ML NEB RESP TX SCH (18:58)
[2018-08-15] MEDS: MONTELUKAST 10 MG TABLET PO SCH (21:26)
[2018-08-15] MEDS: TAMSULOSIN 0.4 MG CAPSULE PO SCH (21:26)
[2018-08-15] MEDS: APIXABAN 5 MG TABLET PO SCH (21:27)
[2018-08-15] MEDS: methylPREDNISolone SOD SUC 125 MG/2 ML VIAL IV SCH (21:27)
[2018-08-16] MEDS: BUDESONIDE 0.5 MG/2 ML NEB RESP TX SCH ×2 (06:45→19:50)
[2018-08-16] MEDS: ALBUTEROL/IPRATROPIUM 3 ML NEB RESP TX SCH ×4 (06:49→19:50)
[2018-08-16 07:23] LABS: Hemoglobin 10.3 GM/DL (14.0-18.0); Immature Granulocytes % 0.5 %; Immature Granulocytes Absolute 0.02 #; Lymphocytes # 0.5 10*3/uL (1.4-4.0); Lymphocytes % 10.5 % (21.2-54.2); Mean Corpuscular HGB Conc 32.2 GM/DL (32-36); Mean Corpuscular Hemoglobin 27 PG (27-34); Mean Corpuscular Volume 85.1 FL (87-102); Mean Platelet Volume 12.6 FL (9.6-12.0); Monocytes # 0.3 10*3/uL (0.11-0.8); Monocytes % 5.9 % (1.7-12.7); Neutrophils # 3.6 10*3/uL (1.4-7.4); Neutrophils % 83.1 % (38.7-73.9); Platelet Count 187 T/CUMM (130-400); Red Blood Count 3.76 MC/CUMM (3.8-5.5); Red Cell Distribution Width 15.1 % (9.3-17.3); White Blood Count 4.4 T/CUMM (4-12)
[2018-08-16 07:54] LABS: Calcium 9.4 MG/DL (8.5-10.1); Osmolality,Calculated 284.3 MOS/KG (273-304); Potassium 4.9 MMOL/L (3.5-5.1)
[2018-08-16] MEDS ORDERED: NON-FORMULARY MEDICATION (Fluticasone/Vilanterol [Breo Ellipta 100-25 Mcg Inh] 1 PUFF) INH SCH (09:00)
[2018-08-16] MEDS: PANTOPRAZOLE 40 MG TABLET PO SCH (09:08)
[2018-08-16] MEDS: CHOLECALCIFEROL 5,000 UNIT TABLET PO SCH (09:09)
[2018-08-16] MEDS: TAMSULOSIN 0.4 MG CAPSULE PO SCH ×2 (09:09→20:52)
[2018-08-16] MEDS: methylPREDNISolone SOD SUC 125 MG/2 ML VIAL IV SCH (09:09)
[2018-08-16] MEDS: APIXABAN 5 MG TABLET PO SCH ×2 (09:09→20:52)
[2018-08-16] MEDS: cefTRIAXone 1,000 MG in SYRINGE 1 EACH IV SCH (12:58)
[2018-08-16] MEDS: methylPREDNISolone SOD SUC 40 MG/1 ML VIAL IV SCH ×2 (15:26→21:03)
[2018-08-16] MEDS: MAGNESIUM HYDROXIDE SUSP 30 ML UDCUP PO PRN (17:00)
[2018-08-16] MEDS: MONTELUKAST 10 MG TABLET PO SCH (20:52)
[2018-08-16] MEDS: ALUMINUM/MAGNES/SIMETH MAX STR 30 ML UDCUP PO PRN (21:47)
[2018-08-17] MEDS: ALBUTEROL/IPRATROPIUM 3 ML NEB RESP TX SCH ×6 (00:20→20:07)
[2018-08-17] MEDS: methylPREDNISolone SOD SUC 40 MG/1 ML VIAL IV SCH ×4 (02:57→21:23)
[2018-08-17 06:17] LABS: Hematocrit 30.8 VOL% (42.0-52.0); Immature Granulocytes % 0.3 %; Immature Granulocytes Absolute 0.02 #; Lymphocytes # 0.4 10*3/uL (1.4-4.0); Lymphocytes % 4.5 % (21.2-54.2); Mean Corpuscular HGB Conc 32.5 GM/DL (32-36); Mean Corpuscular Hemoglobin 27 PG (27-34); Mean Corpuscular Volume 84.2 FL (87-102); Mean Platelet Volume 13.2 FL (9.6-12.0); Monocytes # 0.4 10*3/uL (0.11-0.8); Monocytes % 4.5 % (1.7-12.7); Neutrophils # 7.1 10*3/uL (1.4-7.4); Neutrophils % 90.7 % (38.7-73.9); Platelet Count 205 T/CUMM (130-400); Red Blood Count 3.66 MC/CUMM (3.8-5.5); Red Cell Distribution Width 15.5 % (9.3-17.3); White Blood Count 7.9 T/CUMM (4-12)
[2018-08-17 06:47] LABS: Calcium 9.2 MG/DL (8.5-10.1); Osmolality,Calculated 283.4 MOS/KG (273-304); Potassium 4.5 MMOL/L (3.5-5.1)
[2018-08-17] MEDS: BUDESONIDE 0.5 MG/2 ML NEB RESP TX SCH ×2 (07:15→20:07)
[2018-08-17 07:24] LABS: Anisocytosis 1+; Band Neutrophils 1 % (0-10); Eosinophils 1 % (0-10); Hypochromasia 1+; Lymphocytes 5 % (20-55); Platelet Estimate Normal; Segmented Neutrophils 88 % (50-85); Total Cells Counted 100
[2018-08-17 07:25] LABS: Giant Platelets Few; Poikilocytosis 1+
[2018-08-17] MEDS: TAMSULOSIN 0.4 MG CAPSULE PO SCH ×2 (10:36→21:23)
[2018-08-17] MEDS: APIXABAN 5 MG TABLET PO SCH ×2 (10:36→21:23)
[2018-08-17] MEDS: CHOLECALCIFEROL 5,000 UNIT TABLET PO SCH (10:37)
[2018-08-17] MEDS: cefTRIAXone 1,000 MG in SYRINGE 1 EACH IV SCH (10:37)
[2018-08-17] MEDS: PANTOPRAZOLE 40 MG TABLET PO SCH (10:37)
[2018-08-17] MEDS: MAGNESIUM HYDROXIDE SUSP 30 ML UDCUP PO PRN (14:42)
[2018-08-17] MEDS: MONTELUKAST 10 MG TABLET PO SCH (21:23)
[2018-08-18] MEDS: ALBUTEROL/IPRATROPIUM 3 ML NEB RESP TX SCH ×7 (00:16→23:29)
[2018-08-18 05:11] LABS: Hematocrit 32.5 VOL% (42.0-52.0); Hemoglobin 10.2 GM/DL (14.0-18.0); Immature Granulocytes % 0.5 %; Immature Granulocytes Absolute 0.04 #; Lymphocytes # 0.3 10*3/uL (1.4-4.0); Lymphocytes % 4.3 % (21.2-54.2); Mean Corpuscular HGB Conc 31.4 GM/DL (32-36); Mean Corpuscular Hemoglobin 27 PG (27-34); Mean Corpuscular Volume 87.1 FL (87-102); Mean Platelet Volume 12.8 FL (9.6-12.0); Monocytes # 0.3 10*3/uL (0.11-0.8); Monocytes % 4.6 % (1.7-12.7); Neutrophils # 6.7 10*3/uL (1.4-7.4); Neutrophils % 90.6 % (38.7-73.9); Platelet Count 213 T/CUMM (130-400); Red Blood Count 3.73 MC/CUMM (3.8-5.5); Red Cell Distribution Width 15.4 % (9.3-17.3); White Blood Count 7.4 T/CUMM (4-12)
[2018-08-18 05:23] LABS: Calcium 9.5 MG/DL (8.5-10.1); Osmolality,Calculated 285.5 MOS/KG (273-304); Potassium 4.4 MMOL/L (3.5-5.1)
[2018-08-18 05:41] LABS: Lymphocytes 10 % (20-55); Platelet Estimate Normal; Segmented Neutrophils 89 % (50-85); Total Cells Counted 100
[2018-08-18 05:42] LABS: Acanthocytes Few; Ovalocytes Few
[2018-08-18] MEDS: BUDESONIDE 0.5 MG/2 ML NEB RESP TX SCH ×2 (07:01→19:25)
[2018-08-18] MEDS: methylPREDNISolone SOD SUC 40 MG/1 ML VIAL IV SCH ×3 (07:53→17:54)
[2018-08-18] MEDS ORDERED: LACTULOSE 20 GM/30 ML UDCUP PO PRN (09:33)
[2018-08-18] MEDS: TAMSULOSIN 0.4 MG CAPSULE PO SCH ×2 (10:27→20:44)
[2018-08-18] MEDS: APIXABAN 5 MG TABLET PO SCH ×2 (10:27→20:44)
[2018-08-18] MEDS: POLYETHYLENE GLYCOL POWDER 17 GM PACK PO SCH (10:27)
[2018-08-18] MEDS: PANTOPRAZOLE 40 MG TABLET PO SCH (10:28)
[2018-08-18] MEDS: CHOLECALCIFEROL 5,000 UNIT TABLET PO SCH (10:28)
[2018-08-18] MEDS: cefTRIAXone 1,000 MG in SYRINGE 1 EACH IV SCH (10:31)
[2018-08-18] MEDS: DORNASE ALFA 2.5 MG/2.5 ML VIAL RESP TX SCH (19:26)
[2018-08-18] MEDS: MONTELUKAST 10 MG TABLET PO SCH (20:44)
[2018-08-19] MEDS: methylPREDNISolone SOD SUC 40 MG/1 ML VIAL IV SCH ×3 (01:45→17:03)
[2018-08-19] MEDS: ALBUTEROL/IPRATROPIUM 3 ML NEB RESP TX SCH ×6 (03:01→23:31)
[2018-08-19] MEDS: BUDESONIDE 0.5 MG/2 ML NEB RESP TX SCH ×2 (07:20→19:01)
[2018-08-19] MEDS: DORNASE ALFA 2.5 MG/2.5 ML VIAL RESP TX SCH ×2 (07:30→19:01)
[2018-08-19] MEDS: APIXABAN 5 MG TABLET PO SCH ×2 (09:15→21:19)
[2018-08-19] MEDS: PANTOPRAZOLE 40 MG TABLET PO SCH (09:16)
[2018-08-19] MEDS: TAMSULOSIN 0.4 MG CAPSULE PO SCH ×2 (09:16→21:20)
[2018-08-19] MEDS: CHOLECALCIFEROL 5,000 UNIT TABLET PO SCH (09:16)
[2018-08-19] MEDS: POLYETHYLENE GLYCOL POWDER 17 GM PACK PO SCH (09:17)
[2018-08-19] MEDS: cefTRIAXone 1,000 MG in SYRINGE 1 EACH IV SCH (09:19)
[2018-08-19] MEDS: MONTELUKAST 10 MG TABLET PO SCH (21:19)
[2018-08-19] MEDS: ALUMINUM/MAGNES/SIMETH MAX STR 30 ML UDCUP PO PRN (23:00)
[2018-08-20] MEDS: methylPREDNISolone SOD SUC 40 MG/1 ML VIAL IV SCH ×3 (01:29→16:01)
[2018-08-20] MEDS: ALBUTEROL/IPRATROPIUM 3 ML NEB RESP TX SCH ×6 (03:31→22:29)
[2018-08-20] MEDS: BUDESONIDE 0.5 MG/2 ML NEB RESP TX SCH ×2 (07:00→18:47)
[2018-08-20] MEDS: DORNASE ALFA 2.5 MG/2.5 ML VIAL RESP TX SCH ×2 (07:10→19:00)
[2018-08-20] MEDS: PANTOPRAZOLE 40 MG TABLET PO SCH (09:27)
[2018-08-20] MEDS: APIXABAN 5 MG TABLET PO SCH ×2 (09:27→21:23)
[2018-08-20] MEDS: TAMSULOSIN 0.4 MG CAPSULE PO SCH ×2 (09:27→21:22)
[2018-08-20] MEDS: CHOLECALCIFEROL 5,000 UNIT TABLET PO SCH (09:27)
[2018-08-20] MEDS: POLYETHYLENE GLYCOL POWDER 17 GM PACK PO SCH (09:31)
[2018-08-20] MEDS: cefTRIAXone 1,000 MG in SYRINGE 1 EACH IV SCH (09:33)
[2018-08-20 15:17] LABS: Apearance,Urine CLEAR (Clear); Bilirubin,Urine Negative (Negative); Blood, Urine Negative (Negative); Glucose,Urine (UA) Negative (Negative); Ketones,Urine Negative (Negative); Nitrite,Urine Negative (Negative); Protein,Urine Negative; Urine Color Straw (Yellow); Urine Specific Gravity 1.006 (1.001-1.035); Urine Urobilinogen < 2.0 EU/DL (0.2-1.0)
[2018-08-20] MEDS: MAGNESIUM HYDROXIDE SUSP 30 ML UDCUP PO PRN (16:13)
[2018-08-20] MEDS: MONTELUKAST 10 MG TABLET PO SCH (21:23)
[2018-08-21] MEDS: methylPREDNISolone SOD SUC 40 MG/1 ML VIAL IV SCH ×3 (00:45→18:37)
[2018-08-21] MEDS: ALBUTEROL/IPRATROPIUM 3 ML NEB RESP TX SCH ×5 (02:33→18:59)
[2018-08-21] MEDS: BUDESONIDE 0.5 MG/2 ML NEB RESP TX SCH ×2 (06:51→19:00)
[2018-08-21] MEDS ORDERED: GLYCOPYRROLATE 0.4 MG/2 ML VIAL IM ONE (07:00)
[2018-08-21] MEDS ORDERED: MEPERIDINE 50 MG/1 ML VIAL IM ONE (07:00)
[2018-08-21] MEDS ORDERED: PROMETHAZINE 25 MG/1 ML VIAL IM ONE (07:00)
[2018-08-21] MEDS ORDERED: MIDAZOLAM 2 MG/2 ML VIAL ONE (07:05)
[2018-08-21] MEDS ORDERED: LIDOCAINE 2% 20 ML VIAL RESP TX ONE (07:30)
[2018-08-21] MEDS ORDERED: LIDOCAINE 1% 20 ML VIAL MISC INJ ONE (07:30)
[2018-08-21] MEDS ORDERED: MIDAZOLAM 2 MG/2 ML VIAL IV ONE (07:30)
[2018-08-21] MEDS ORDERED: LIDOCAINE 2% VISCOUS 100 ML BOTTLE SWISH/SPIT ONE (07:30)
[2018-08-21 09:11] LABS: Hematocrit 31.1 VOL% (42.0-52.0); Hemoglobin 10.1 GM/DL (14.0-18.0); Immature Granulocytes % 0.4 %; Immature Granulocytes Absolute 0.03 #; Lymphocytes # 0.2 10*3/uL (1.4-4.0); Lymphocytes % 3.2 % (21.2-54.2); Mean Corpuscular HGB Conc 32.5 GM/DL (32-36); Mean Corpuscular Hemoglobin 27 PG (27-34); Mean Corpuscular Volume 84.5 FL (87-102); Mean Platelet Volume 12.2 FL (9.6-12.0); Monocytes # 0.7 10*3/uL (0.11-0.8); Monocytes % 8.9 % (1.7-12.7); Neutrophils # 6.7 10*3/uL (1.4-7.4); Neutrophils % 87.5 % (38.7-73.9); Platelet Count 226 T/CUMM (130-400); Red Blood Count 3.68 MC/CUMM (3.8-5.5); Red Cell Distribution Width 15.3 % (9.3-17.3); White Blood Count 7.6 T/CUMM (4-12)
[2018-08-21 09:18] LABS: INR 1.1; PT Patient Result 11.4 SECS
[2018-08-21 09:35] LABS: Albumin 2.8 G/DL (3.4-5.0); Bilirubin,Total 0.7 MG/DL (0.2-1.0); Calcium 8.5 MG/DL (8.5-10.1); Osmolality,Calculated 288.3 MOS/KG (273-304); Potassium 4.4 MMOL/L (3.5-5.1); Total Protein 5.7 G/DL (6.4-8.3)
[2018-08-21 09:57] LABS: Hypochromasia 1+; Lymphocytes 3 % (20-55); Platelet Estimate Adequate; Segmented Neutrophils 93 % (50-85); Total Cells Counted 100
[2018-08-21 09:58] LABS: Ovalocytes Slight
[2018-08-21] MEDS: POLYETHYLENE GLYCOL POWDER 17 GM PACK PO SCH (10:39)
[2018-08-21] MEDS: CHOLECALCIFEROL 5,000 UNIT TABLET PO SCH (10:39)
[2018-08-21] MEDS: TAMSULOSIN 0.4 MG CAPSULE PO SCH ×2 (10:39→21:09)
[2018-08-21] MEDS: PANTOPRAZOLE 40 MG TABLET PO SCH (10:39)
[2018-08-21] MEDS: cefTRIAXone 1,000 MG in SYRINGE 1 EACH IV SCH (10:40)
[2018-08-21] MEDS ORDERED: FINASTERIDE 5 MG TABLET PO SCH (21:00)
[2018-08-21] MEDS: MONTELUKAST 10 MG TABLET PO SCH (21:09)
[2018-08-22] MEDS: methylPREDNISolone SOD SUC 40 MG/1 ML VIAL IV SCH ×2 (00:47→08:40)
[2018-08-22] MEDS: ALBUTEROL/IPRATROPIUM 3 ML NEB RESP TX SCH ×4 (02:51→11:38)
[2018-08-22 06:16] LABS: Hematocrit 32.8 VOL% (42.0-52.0); Hemoglobin 10.2 GM/DL (14.0-18.0); Immature Granulocytes % 0.6 %; Immature Granulocytes Absolute 0.05 #; Lymphocytes # 0.2 10*3/uL (1.4-4.0); Lymphocytes % 2.3 % (21.2-54.2); Mean Corpuscular HGB Conc 31.1 GM/DL (32-36); Mean Corpuscular Hemoglobin 27 PG (27-34); Mean Corpuscular Volume 86.3 FL (87-102); Mean Platelet Volume 12.4 FL (9.6-12.0); Monocytes # 0.4 10*3/uL (0.11-0.8); Monocytes % 5.4 % (1.7-12.7); Neutrophils # 7.3 10*3/uL (1.4-7.4); Neutrophils % 91.7 % (38.7-73.9); Platelet Count 228 T/CUMM (130-400); Red Cell Distribution Width 15.2 % (9.3-17.3)
[2018-08-22 06:43] LABS: Hypochromasia 1+; Lymphocytes 4 % (20-55); Platelet Estimate Adequate; Segmented Neutrophils 93 % (50-85); Total Cells Counted 100
[2018-08-22 06:47] LABS: Albumin 2.8 G/DL (3.4-5.0); Bilirubin,Total 0.9 MG/DL (0.2-1.0); Calcium 8.8 MG/DL (8.5-10.1); Osmolality,Calculated 282.7 MOS/KG (273-304); Potassium 4.4 MMOL/L (3.5-5.1); Total Protein 5.7 G/DL (6.4-8.3)
[2018-08-22] MEDS: BUDESONIDE 0.5 MG/2 ML NEB RESP TX SCH (07:17)
[2018-08-22] MEDS: PANTOPRAZOLE 40 MG TABLET PO SCH (08:36)
[2018-08-22] MEDS: TAMSULOSIN 0.4 MG CAPSULE PO SCH (08:36)
[2018-08-22] MEDS: CHOLECALCIFEROL 5,000 UNIT TABLET PO SCH (08:37)
[2018-08-22] MEDS: POLYETHYLENE GLYCOL POWDER 17 GM PACK PO SCH (08:38)
[2018-08-22] MEDS: cefTRIAXone 1,000 MG in SYRINGE 1 EACH IV SCH (08:44)
[2018-08-22 11:46] VITALS: BP 140/67
[2018-08-23] MEDS ORDERED: predniSONE 20 MG TABLET PO SCH (09:00)
== END 2018-08-22 13:35 | disposition home health service (06) | DRG 191 ==
LOC: N.ED 08:38 → N.EDINP 13:06 → SUATTDRO 13:06 → N.2E 14:30
PROVIDERS: ADMIT Internal Medicine; ATTEND Internal Medicine

== ENCOUNTER 2019-03-26 15:42 | Inpatient (IN) ==
[2019-03-26 16:17] LABS: Basophils % 0.2 % (0.0-0.8); Hematocrit 32.4 VOL% (42.0-52.0); Hemoglobin 9.5 GM/DL (14.0-18.0); Immature Granulocytes % 0.7 %; Immature Granulocytes Absolute 0.13 #; Lymphocytes # 0.4 10*3/uL (1.4-4.0); Lymphocytes % 2.3 % (21.2-54.2); Mean Corpuscular HGB Conc 29.3 GM/DL (32-36); Mean Corpuscular Volume 81.8 FL (87-102); Mean Platelet Volume 12.1 FL (9.6-12.0); Monocytes % 5.1 % (1.7-12.7); Neutrophils % 91.7 % (38.7-73.9); Platelet Count 242 T/CUMM (130-400); Red Blood Count 3.96 MC/CUMM (3.8-5.5); White Blood Count 17.7 T/CUMM (4-12)
[2019-03-26 16:34] LABS: Albumin 3.6 G/DL (3.4-5.0); Bilirubin,Total 1.4 MG/DL (0.2-1.0); Calcium 9.2 MG/DL (8.5-10.1); Osmolality,Calculated 282.3 MOS/KG (273-304); Total Protein 6.9 G/DL (6.4-8.3)
[2019-03-26] MEDS ORDERED: ALBUTEROL/IPRATROPIUM 3 ML NEB RESP TX STA (16:42)
[2019-03-26] MEDS ORDERED: methylPREDNISolone SOD SUC 125 MG/2 ML VIAL IV STA (16:42)
[2019-03-26] MEDS ORDERED: VANCOMYCIN INJ 1,000 MG in SODIUM CHLORIDE 0.9% 250 ML IV SCH (17:00)
[2019-03-26 17:07] LABS: Band Neutrophils 2 % (0-10); Hypochromasia Slight; Lymphocytes 4 % (20-55); Platelet Estimate Normal; Segmented Neutrophils 93 % (50-85); Total Cells Counted 100
[2019-03-26 17:08] LABS: Microcytosis Slight
[2019-03-26] MEDS: LEVOFLOXACIN INJ 500 MG in PREMIX 1 EACH IV SCH (17:25)
[2019-03-26 17:54] LABS: Apearance,Urine CLEAR (Clear); Bacteria,Urine Occasional /HPF (Few); Bilirubin,Urine Negative (Negative); Blood, Urine Negative (Negative); Glucose,Urine (UA) Negative (Negative); Ketones,Urine Negative (Negative); Mucus,Urine Occasional /LPF (Occasional); Nitrite,Urine Negative (Negative); Protein,Urine Negative; RBC,Urine 2 /HPF (0-4); Squamous Epithelial Cell,Urine Occasional /HPF (0-10); Urine Color Yellow (Yellow); Urine Specific Gravity 1.018 (1.001-1.035); WBC,Urine 1 /HPF (0-6)
[2019-03-26] MEDS ORDERED: ALBUTEROL/IPRATROPIUM 3 ML NEB RESP TX SCH (18:30)
[2019-03-26] MEDS: ALBUTEROL/IPRATROPIUM 3 ML NEB RESP TX SCH ×2 (20:15→22:46)
[2019-03-26] MEDS: rOPINIRole 0.25 MG TABLET PO SCH (23:03)
[2019-03-26] MEDS: FINASTERIDE 5 MG TABLET PO SCH (23:04)
[2019-03-26] MEDS: APIXABAN 2.5 MG TABLET PO SCH (23:04)
[2019-03-26] MEDS: MONTELUKAST 10 MG TABLET PO SCH (23:04)
[2019-03-27] MEDS: ALBUTEROL/IPRATROPIUM 3 ML NEB RESP TX SCH ×5 (02:35→19:47)
[2019-03-27 06:03] LABS: Basophils % 0.1 % (0.0-0.8); Hematocrit 29.6 VOL% (42.0-52.0); Hemoglobin 8.8 GM/DL (14.0-18.0); Immature Granulocytes % 0.7 %; Immature Granulocytes Absolute 0.11 #; Lymphocytes # 0.5 10*3/uL (1.4-4.0); Mean Corpuscular HGB Conc 29.7 GM/DL (32-36); Mean Platelet Volume 12.1 FL (9.6-12.0); Monocytes % 2.7 % (1.7-12.7); Neutrophils % 93.5 % (38.7-73.9); Platelet Count 211 T/CUMM (130-400); White Blood Count 15.4 T/CUMM (4-12)
[2019-03-27 06:32] LABS: Albumin 2.9 G/DL (3.4-5.0); Bilirubin,Total 0.5 MG/DL (0.2-1.0); Calcium 9.3 MG/DL (8.5-10.1); Osmolality,Calculated 282.5 MOS/KG (273-304); Total Protein 6.7 G/DL (6.4-8.3)
[2019-03-27 06:35] LABS: Band Neutrophils 4 % (0-10); Platelet Estimate Normal; Segmented Neutrophils 95 % (50-85); Total Cells Counted 100
[2019-03-27] MEDS: methylPREDNISolone SOD SUC 40 MG/1 ML VIAL IV SCH ×2 (09:03→21:39)
[2019-03-27] MEDS: APIXABAN 2.5 MG TABLET PO SCH ×2 (09:03→21:40)
[2019-03-27] MEDS: CEFEPIME 1,000 MG in SYRINGE 1 EACH IV SCH ×2 (10:35→17:53)
[2019-03-27] MEDS: LEVOFLOXACIN INJ 500 MG in PREMIX 1 EACH IV SCH (17:47)
[2019-03-27] MEDS: FINASTERIDE 5 MG TABLET PO SCH (21:39)
[2019-03-27] MEDS: rOPINIRole 0.25 MG TABLET PO SCH (21:40)
[2019-03-27] MEDS: MONTELUKAST 10 MG TABLET PO SCH (21:40)
[2019-03-28] MEDS: ALBUTEROL/IPRATROPIUM 3 ML NEB RESP TX SCH ×7 (00:19→23:40)
[2019-03-28] MEDS: CEFEPIME 1,000 MG in SYRINGE 1 EACH IV SCH ×3 (01:03→16:36)
[2019-03-28 05:56] LABS: Basophils % 0.1 % (0.0-0.8); Hematocrit 28.1 VOL% (42.0-52.0); Hemoglobin 8.4 GM/DL (14.0-18.0); Immature Granulocytes % 0.8 %; Immature Granulocytes Absolute 0.15 #; Lymphocytes # 0.5 10*3/uL (1.4-4.0); Lymphocytes % 2.5 % (21.2-54.2); Mean Corpuscular HGB Conc 29.9 GM/DL (32-36); Mean Corpuscular Volume 79.4 FL (87-102); Mean Platelet Volume 11.6 FL (9.6-12.0); Monocytes % 4.8 % (1.7-12.7); Neutrophils % 91.8 % (38.7-73.9); Platelet Count 214 T/CUMM (130-400); Red Blood Count 3.54 MC/CUMM (3.8-5.5); Red Cell Distribution Width 16.2 % (9.3-17.3); White Blood Count 18.9 T/CUMM (4-12)
[2019-03-28 06:12] LABS: Calcium 9.1 MG/DL (8.5-10.1); Osmolality,Calculated 283.7 MOS/KG (273-304)
[2019-03-28 06:40] LABS: Acanthocytes Few; Hypochromasia 1+; Lymphocytes 5 % (20-55); Microcytosis 1+; Ovalocytes Slight; Poikilocytosis 1+; Segmented Neutrophils 92 % (50-85); Target Cells Slight; Total Cells Counted 100
[2019-03-28 06:41] LABS: Platelet Estimate Normal; Polychromasia Slight
[2019-03-28] MEDS: APIXABAN 2.5 MG TABLET PO SCH ×2 (09:15→21:20)
[2019-03-28] MEDS: methylPREDNISolone SOD SUC 40 MG/1 ML VIAL IV SCH ×2 (09:15→21:21)
[2019-03-28] MEDS: LEVOFLOXACIN INJ 500 MG in PREMIX 1 EACH IV SCH (16:35)
[2019-03-28] MEDS: rOPINIRole 0.25 MG TABLET PO SCH (21:19)
[2019-03-28] MEDS: MONTELUKAST 10 MG TABLET PO SCH (21:19)
[2019-03-28] MEDS: FINASTERIDE 5 MG TABLET PO SCH (21:19)
[2019-03-29] MEDS: CEFEPIME 1,000 MG in SYRINGE 1 EACH IV SCH ×3 (01:27→17:24)
[2019-03-29] MEDS: ALBUTEROL/IPRATROPIUM 3 ML NEB RESP TX SCH ×6 (03:30→22:52)
[2019-03-29] MEDS: methylPREDNISolone SOD SUC 40 MG/1 ML VIAL IV SCH ×2 (10:13→21:26)
[2019-03-29] MEDS: guaiFENesin 200 MG/10 ML UDCUP PO PRN ×3 (10:13→22:26)
[2019-03-29] MEDS: APIXABAN 2.5 MG TABLET PO SCH ×2 (10:15→21:23)
[2019-03-29] MEDS: LEVOFLOXACIN INJ 500 MG in PREMIX 1 EACH IV SCH (17:15)
[2019-03-29] MEDS: rOPINIRole 0.25 MG TABLET PO SCH (21:23)
[2019-03-29] MEDS: FINASTERIDE 5 MG TABLET PO SCH (21:23)
[2019-03-29] MEDS: MONTELUKAST 10 MG TABLET PO SCH (21:23)
[2019-03-30] MEDS: CEFEPIME 1,000 MG in SYRINGE 1 EACH IV SCH ×3 (01:15→19:27)
[2019-03-30] MEDS: ALBUTEROL/IPRATROPIUM 3 ML NEB RESP TX SCH ×6 (02:00→23:50)
[2019-03-30 07:17] LABS: Basophils # 0.1 10*3/uL (0.0-0.2); Basophils % 0.6 % (0.0-0.8); Hematocrit 30.1 VOL% (42.0-52.0); Hemoglobin 8.9 GM/DL (14.0-18.0); Lymphocytes # 0.5 10*3/uL (1.4-4.0); Mean Corpuscular HGB Conc 29.6 GM/DL (32-36); Mean Corpuscular Volume 79.8 FL (87-102); Mean Platelet Volume 12.7 FL (9.6-12.0); Monocytes % 6.3 % (1.7-12.7); NRBC # 0.05 10*3/uL; Neutrophils % 87.1 % (38.7-73.9); Platelet Count 257 T/CUMM (130-400); Red Blood Count 3.77 MC/CUMM (3.8-5.5); Red Cell Distribution Width 16.5 % (9.3-17.3); White Blood Count 10.5 T/CUMM (4-12)
[2019-03-30 07:31] LABS: Calcium 9.4 MG/DL (8.5-10.1); Osmolality,Calculated 278.7 MOS/KG (273-304)
[2019-03-30] MEDS: methylPREDNISolone SOD SUC 40 MG/1 ML VIAL IV SCH (10:20)
[2019-03-30] MEDS: APIXABAN 2.5 MG TABLET PO SCH ×2 (10:21→21:35)
[2019-03-30] MEDS: LEVOFLOXACIN INJ 500 MG in PREMIX 1 EACH IV SCH (17:51)
[2019-03-30] MEDS: rOPINIRole 0.25 MG TABLET PO SCH (21:35)
[2019-03-30] MEDS: FINASTERIDE 5 MG TABLET PO SCH (21:35)
[2019-03-30] MEDS: MONTELUKAST 10 MG TABLET PO SCH (21:36)
[2019-03-31] MEDS: ALBUTEROL/IPRATROPIUM 3 ML NEB RESP TX SCH ×6 (02:54→23:46)
[2019-03-31] MEDS: CEFEPIME 1,000 MG in SYRINGE 1 EACH IV SCH ×2 (03:27→13:19)
[2019-03-31] MEDS ORDERED: predniSONE 20 MG TABLET PO SCH (09:00)
[2019-03-31] MEDS: guaiFENesin 200 MG/10 ML UDCUP PO PRN (10:13)
[2019-03-31] MEDS: APIXABAN 2.5 MG TABLET PO SCH ×2 (10:13→21:14)
[2019-03-31] MEDS: cefTRIAXone 1,000 MG in SYRINGE 1 EACH IV SCH (13:23)
[2019-03-31] MEDS: FLUCONAZOLE 100 MG TABLET PO SCH (17:40)
[2019-03-31] MEDS: MULTIVITAMIN (BEROCCA) TABLET PO SCH (17:40)
[2019-03-31] MEDS: LACTOBACILLUS ACIDOPHILUS/BULGARICUS CAPLET PO SCH (17:40)
[2019-03-31] MEDS: rOPINIRole 0.25 MG TABLET PO SCH (21:14)
[2019-03-31] MEDS: MONTELUKAST 10 MG TABLET PO SCH (21:14)
[2019-03-31] MEDS: valACYclovir 500 MG TABLET PO SCH (21:14)
[2019-03-31] MEDS: FINASTERIDE 5 MG TABLET PO SCH (21:15)
[2019-04-01] MEDS: ALBUTEROL/IPRATROPIUM 3 ML NEB RESP TX SCH ×6 (03:50→23:00)
[2019-04-01] MEDS ORDERED: MEPERIDINE 25 MG/1 ML VIAL ONE (07:17)
[2019-04-01] MEDS ORDERED: MIDAZOLAM 10 MG/2 ML VIAL ONE (07:18)
[2019-04-01] MEDS ORDERED: MIDAZOLAM 2 MG/2 ML VIAL IV ONE (08:06)
[2019-04-01] MEDS ORDERED: MEPERIDINE 25 MG/1 ML VIAL IV ONE (08:06)
[2019-04-01] MEDS: SODIUM CHLORIDE 0.9% 1,000 ML IV SCH (08:10)
[2019-04-01] MEDS: valACYclovir 500 MG TABLET PO SCH ×3 (10:31→21:09)
[2019-04-01] MEDS: cefTRIAXone 1,000 MG in SYRINGE 1 EACH IV SCH (13:24)
[2019-04-01] MEDS: APIXABAN 2.5 MG TABLET PO SCH ×2 (13:26→21:09)
[2019-04-01] MEDS: predniSONE 20 MG TABLET PO SCH (13:34)
[2019-04-01] MEDS: LACTOBACILLUS ACIDOPHILUS/BULGARICUS CAPLET PO SCH (13:34)
[2019-04-01] MEDS: FLUCONAZOLE 100 MG TABLET PO SCH (13:34)
[2019-04-01] MEDS: MULTIVITAMIN (BEROCCA) TABLET PO SCH (13:34)
[2019-04-01] MEDS: MONTELUKAST 10 MG TABLET PO SCH (21:09)
[2019-04-01] MEDS: FINASTERIDE 5 MG TABLET PO SCH (21:09)
[2019-04-01] MEDS: rOPINIRole 0.25 MG TABLET PO SCH (21:09)
[2019-04-02] MEDS: ALBUTEROL/IPRATROPIUM 3 ML NEB RESP TX SCH ×4 (02:26→14:09)
[2019-04-02] MEDS ORDERED: CALCIUM CARBONATE CHEW 500 MG TABLET PO PRN (02:47)
[2019-04-02] MEDS: SODIUM CHLORIDE 0.9% 1,000 ML IV SCH (07:55)
[2019-04-02] MEDS: LACTOBACILLUS ACIDOPHILUS/BULGARICUS CAPLET PO SCH (09:04)
[2019-04-02] MEDS: predniSONE 20 MG TABLET PO SCH (09:05)
[2019-04-02] MEDS: MULTIVITAMIN (BEROCCA) TABLET PO SCH (09:05)
[2019-04-02] MEDS: valACYclovir 500 MG TABLET PO SCH ×2 (09:05→14:29)
[2019-04-02] MEDS: APIXABAN 2.5 MG TABLET PO SCH (09:05)
[2019-04-02] MEDS: FLUCONAZOLE 100 MG TABLET PO SCH (09:05)
[2019-04-02 11:55] VITALS: BP 127/68
[2019-04-02] MEDS: cefTRIAXone 1,000 MG in SYRINGE 1 EACH IV SCH (12:30)
[2019-04-02] MEDS ORDERED: CIPROFLOXACIN 500 MG TABLET PO SCH (21:00)
== END 2019-04-02 18:20 | disposition home or self-care (01) | DRG 872 ==
LOC: EDUNIT# → N.ED 15:42 → SUATTDRO 18:16 → N.EDINP 18:16 → N.5E 20:02
PROVIDERS: ADMIT Family Medicine; ATTEND Hospitalist

== ENCOUNTER 2020-04-19 12:15 | Inpatient (IN) ==
[2020-04-19] MEDS ORDERED: SODIUM CHLORIDE 0.9% 1,000 ML IV STA (12:46)
[2020-04-19] MEDS ORDERED: ACETAMINOPHEN 500 MG TABLET PO STA (12:58)
[2020-04-19 13:10] LABS: Basophils # 0.1 10*3/uL (0.0-0.2); Basophils % 0.3 % (0.0-0.8); Hematocrit 27.6 VOL% (42.0-52.0); Immature Granulocytes % 1.1 %; Immature Granulocytes Absolute 0.21 #; Lymphocytes # 0.6 10*3/uL (1.4-4.0); Lymphocytes % 3.1 % (21.2-54.2); Neutrophils % 89.5 % (38.7-73.9); Platelet Count 161 T/CUMM (130-400); Red Blood Count 3.73 MC/CUMM (3.8-5.5); Red Cell Distribution Width 18.4 % (9.3-17.3); White Blood Count 19.5 T/CUMM (4-12)
[2020-04-19 13:22] LABS: INR 1.4; PT Patient Result 14.3 SECS (9.8-11.9); Partial Thromboplastin Time 34.8 SECS (23.9-33.8)
[2020-04-19 13:40] LABS: Alanine Aminotransferase 22 U/L (16-61); Albumin 2.8 G/DL (3.4-5.0); Alkaline Phosphatase 114 U/L (45-117); Aspartate Amino Transferase 42 U/L (0-37); Blood Urea Nitrogen 29 MG/DL (7-18); Calcium 7.8 MG/DL (8.5-10.1); Estimated Glom Filtration Rate 32 ML/MIN; Glucose 97 MG/DL (74-106); Osmolality,Calculated 275.1 MOS/KG (273-304); Thyroid Stimulating Hormone 0.661 uIU/ml (0.358-3.74); Total Protein 6.3 G/DL (6.4-8.3)
[2020-04-19] MEDS ORDERED: AZITHROMYCIN INJ 500 MG in SODIUM CHLORIDE 0.9% 250 ML IV STA (14:24)
[2020-04-19 14:47] LABS: Lymphocytes 5 % (20-55); Ovalocytes Slight; Segmented Neutrophils 95 % (50-85); Total Cells Counted 100
[2020-04-19 14:48] LABS: Hypochromasia 3+; Microcytosis 1+
[2020-04-19] MEDS ORDERED: GLUCAGON 1 MG VIAL IM PRN (15:18)
[2020-04-19] MEDS ORDERED: DEXTROSE 10% 250 ML BAG IV PRN (15:18)
[2020-04-19 16:50] LABS: Sedimentation Rate-Westergren 77 MM/HR (0-20)
[2020-04-19] MEDS ORDERED: CHLORPHENIRAMINE PHENYLEPHRINE PO PRN (18:38)
[2020-04-19] MEDS: FINASTERIDE 5 MG TABLET PO SCH (20:59)
[2020-04-19] MEDS: PREGABALIN 75 MG CAPSULE PO SCH (20:59)
[2020-04-19] MEDS: TAMSULOSIN 0.4 MG CAPSULE PO SCH (20:59)
[2020-04-19] MEDS: rOPINIRole 4 MG TABLET PO SCH (20:59)
[2020-04-19] MEDS: APIXABAN 5 MG TABLET PO SCH (20:59)
[2020-04-19] MEDS: MONTELUKAST 10 MG TABLET PO SCH (20:59)
[2020-04-19] MEDS: ACETAMINOPHEN 325 MG TABLET PO PRN (21:08)
[2020-04-20 01:07] LABS: Basophils # 0.1 10*3/uL (0.0-0.2); Basophils % 0.2 % (0.0-0.8); Hemoglobin 7.7 GM/DL (14.0-18.0); Immature Granulocytes % 2.9 %; Immature Granulocytes Absolute 0.73 #; Lymphocytes # 0.6 10*3/uL (1.4-4.0); Lymphocytes % 2.2 % (21.2-54.2); Mean Corpuscular HGB Conc 29.6 GM/DL (32-36); Mean Corpuscular Volume 74.9 FL (87-102); Monocytes % 4.3 % (1.7-12.7); Neutrophils % 90.4 % (38.7-73.9); Red Blood Count 3.47 MC/CUMM (3.8-5.5); Red Cell Distribution Width 18.3 % (9.3-17.3)
[2020-04-20 01:08] LABS: Platelet Count 120 T/CUMM (130-400)
[2020-04-20 01:26] LABS: Ferritin 38.1 ng/ml (26-388)
[2020-04-20 02:39] LABS: CKMB % 0.9 %
[2020-04-20 02:50] LABS: Acanthocytes Few; Band Neutrophils 15 % (0-10); Lymphocytes 4 % (20-55); Metamyelocytes 6 %; Myelocytes 3 %; Schistocytes Few; Segmented Neutrophils 67 % (50-85); Total Cells Counted 100
[2020-04-20 02:51] LABS: Hypochromasia 2+; Ovalocytes 1+; Platelet Estimate Decreased; Poikilocytosis 1+
[2020-04-20 02:52] LABS: Polychromasia Few
[2020-04-20 02:57] LABS: Troponin I 1.28 NG/ML (0.00-0.045)
[2020-04-20 03:37] LABS: Albumin 2.5 G/DL (3.4-5.0); Bilirubin,Total 0.9 MG/DL (0.2-1.0); Calcium 7.8 MG/DL (8.5-10.1); Osmolality,Calculated 280.7 MOS/KG (273-304); Risk Ratio 6.67; Total Protein 6.2 G/DL (6.4-8.3); VLDL CHOLESTEROL 34.8 MG/DL
[2020-04-20 09:19] LABS: CKMB % 1.1 %
[2020-04-20 09:20] LABS: Troponin I 0.915 NG/ML (0.00-0.045)
[2020-04-20] MEDS ORDERED: MAGNESIUM SULF RIDER 4 GM in PREMIX 1 EACH IV PRN (09:36)
[2020-04-20] MEDS ORDERED: MAGNESIUM SULF RIDER 2 GM in PREMIX 1 EACH IV PRN (09:36)
[2020-04-20] MEDS: PIPERACILLIN/TAZOBACTAM 3,375 MG in SODIUM CHLORIDE 0.9% 100 ML IV SCH ×2 (10:05→17:42)
[2020-04-20] MEDS: TAMSULOSIN 0.4 MG CAPSULE PO SCH ×2 (10:51→20:13)
[2020-04-20] MEDS: APIXABAN 5 MG TABLET PO SCH ×2 (10:51→20:31)
[2020-04-20] MEDS: PREGABALIN 75 MG CAPSULE PO SCH ×2 (10:51→20:13)
[2020-04-20] MEDS ORDERED: ALBUTEROL INHALER 18 GM INH SCH (14:40)
[2020-04-20] MEDS ORDERED: FUROSEMIDE 40 MG/4 ML VIAL IV ONE (14:41)
[2020-04-20] MEDS: ALBUTEROL INHALER 18 GM INH SCH ×2 (15:10→20:12)
[2020-04-20] MEDS: FINASTERIDE 5 MG TABLET PO SCH (20:13)
[2020-04-20] MEDS: rOPINIRole 4 MG TABLET PO SCH (20:13)
[2020-04-20] MEDS: MONTELUKAST 10 MG TABLET PO SCH (20:13)
[2020-04-21] MEDS: ALBUTEROL INHALER 18 GM INH SCH ×4 (01:25→19:23)
[2020-04-21] MEDS: PIPERACILLIN/TAZOBACTAM 3,375 MG in SODIUM CHLORIDE 0.9% 100 ML IV SCH ×3 (02:07→16:52)
[2020-04-21 07:05] LABS: Basophils % 0.2 % (0.0-0.8); Eosinophils % 0.2 % (0.00-10.9); Immature Granulocytes % 0.7 %; Immature Granulocytes Absolute 0.09 #; Lymphocytes # 0.7 10*3/uL (1.4-4.0); Lymphocytes % 5.5 % (21.2-54.2); Mean Corpuscular HGB Conc 29.6 GM/DL (32-36); Mean Corpuscular Volume 72.8 FL (87-102); Monocytes % 6.5 % (1.7-12.7); Neutrophils % 86.9 % (38.7-73.9); Platelet Count 92 T/CUMM (130-400); Red Blood Count 3.71 MC/CUMM (3.8-5.5); Red Cell Distribution Width 18.6 % (9.3-17.3); White Blood Count 12.4 T/CUMM (4-12)
[2020-04-21 07:16] LABS: Apearance,Urine CLEAR (Clear); Bilirubin,Urine Negative (Negative); Blood, Urine Small mg/dL (Negative); Glucose,Urine (UA) Negative (Negative); Ketones,Urine Negative (Negative); Mucus,Urine Occasional /LPF (Occasional); Nitrite,Urine Negative (Negative); Protein,Urine 30 MG/DL; RBC,Urine 1 /HPF (0-4); Urine Color Yellow (Yellow); Urine Specific Gravity 1.021 (1.001-1.035); Urine Urobilinogen < 2.0 EU/DL (0.2-1.0); WBC,Urine <1 /HPF (0-6)
[2020-04-21 07:22] LABS: Albumin 2.3 G/DL (3.4-5.0); Bilirubin,Total 0.9 MG/DL (0.2-1.0); Calcium 8.4 MG/DL (8.5-10.1); Osmolality,Calculated 276.1 MOS/KG (273-304); Total Protein 6.4 G/DL (6.4-8.3)
[2020-04-21 07:27] LABS: % Iron Saturation 2.7 % (18-50)
[2020-04-21 07:31] LABS: Hypochromasia 1+; Microcytosis Slight; Ovalocytes Slight; Platelet Estimate Decreased
[2020-04-21 07:58] LABS: Folate 9.2 NG/ML (5.4-24.0)
[2020-04-21] MEDS: PREGABALIN 75 MG CAPSULE PO SCH ×2 (09:08→22:25)
[2020-04-21] MEDS: TAMSULOSIN 0.4 MG CAPSULE PO SCH ×2 (09:08→22:24)
[2020-04-21] MEDS: POTASSIUM CHLORIDE 20 MEQ TABLET PO PRN ×3 (10:16→17:03)
[2020-04-21] MEDS: IRON SUCROSE 200 MG in SODIUM CHLORIDE 0.9% 100 ML IV SCH (13:13)
[2020-04-21] MEDS: ACETAMINOPHEN 325 MG TABLET PO PRN (17:03)
[2020-04-21] MEDS: FINASTERIDE 5 MG TABLET PO SCH (22:25)
[2020-04-21] MEDS: rOPINIRole 4 MG TABLET PO SCH (22:26)
[2020-04-21] MEDS: MONTELUKAST 10 MG TABLET PO SCH (22:26)
[2020-04-22] MEDS: ALBUTEROL INHALER 18 GM INH SCH ×4 (00:40→18:00)
[2020-04-22] MEDS: PIPERACILLIN/TAZOBACTAM 3,375 MG in SODIUM CHLORIDE 0.9% 100 ML IV SCH ×3 (00:41→16:54)
[2020-04-22 06:02] LABS: Basophils % 0.3 % (0.0-0.8); Eosinophils % 0.4 % (0.00-10.9); Hemoglobin 7.5 GM/DL (14.0-18.0); Immature Granulocytes Absolute 0.11 #; Lymphocytes # 0.7 10*3/uL (1.4-4.0); Lymphocytes % 6.5 % (21.2-54.2); Mean Corpuscular HGB Conc 31.3 GM/DL (32-36); Monocytes % 13.3 % (1.7-12.7); Neutrophils % 78.5 % (38.7-73.9); Platelet Count 108 T/CUMM (130-400); Red Blood Count 3.43 MC/CUMM (3.8-5.5); Red Cell Distribution Width 18.5 % (9.3-17.3); White Blood Count 11.3 T/CUMM (4-12)
[2020-04-22 06:35] LABS: Calcium 8.9 MG/DL (8.5-10.1); Ferritin 159.7 ng/ml (26-388); Osmolality,Calculated 279.8 MOS/KG (273-304)
[2020-04-22 06:39] LABS: Platelet Estimate Adequate
[2020-04-22 06:40] LABS: Anisocytosis 1+; Hypochromasia 1+; Ovalocytes Few; Poikilocytosis 1+
[2020-04-22] MEDS: PREGABALIN 75 MG CAPSULE PO SCH ×2 (09:02→21:14)
[2020-04-22] MEDS: TAMSULOSIN 0.4 MG CAPSULE PO SCH ×2 (09:02→21:13)
[2020-04-22] MEDS: IRON SUCROSE 200 MG in SODIUM CHLORIDE 0.9% 100 ML IV SCH (09:02)
[2020-04-22] MEDS: FINASTERIDE 5 MG TABLET PO SCH (21:14)
[2020-04-22] MEDS: MONTELUKAST 10 MG TABLET PO SCH (21:15)
[2020-04-22] MEDS: rOPINIRole 4 MG TABLET PO SCH (21:15)
[2020-04-23] MEDS: ALBUTEROL INHALER 18 GM INH SCH ×4 (01:48→20:39)
[2020-04-23] MEDS: PIPERACILLIN/TAZOBACTAM 3,375 MG in SODIUM CHLORIDE 0.9% 100 ML IV SCH ×2 (01:48→09:02)
[2020-04-23 06:17] LABS: Basophils % 0.3 % (0.0-0.8); Eosinophils # 0.1 10*3/uL (0.0-0.87); Eosinophils % 0.9 % (0.00-10.9); Hematocrit 26.4 VOL% (42.0-52.0); Hemoglobin 7.8 GM/DL (14.0-18.0); Immature Granulocytes % 1.7 %; Lymphocytes # 1.2 10*3/uL (1.4-4.0); Mean Corpuscular HGB Conc 29.5 GM/DL (32-36); Mean Corpuscular Volume 72.3 FL (87-102); Monocytes % 16.3 % (1.7-12.7); Neutrophils % 70.8 % (38.7-73.9); Platelet Count 118 T/CUMM (130-400); Red Blood Count 3.65 MC/CUMM (3.8-5.5); Red Cell Distribution Width 18.9 % (9.3-17.3); White Blood Count 11.7 T/CUMM (4-12)
[2020-04-23 06:40] LABS: Ferritin 347.6 ng/ml (26-388); Osmolality,Calculated 275.8 MOS/KG (273-304)
[2020-04-23 07:43] LABS: Band Neutrophils 2 % (0-10); Eosinophils 2 % (0-10); Hypochromasia 4+; Lymphocytes 13 % (20-55); Ovalocytes Slight; Segmented Neutrophils 69 % (50-85); Total Cells Counted 100
[2020-04-23 07:44] LABS: Elliptocytes Few
[2020-04-23 07:45] LABS: Schistocytes Slight
[2020-04-23 07:46] LABS: Platelet Estimate Adequate
[2020-04-23] MEDS: IRON SUCROSE 200 MG in SODIUM CHLORIDE 0.9% 100 ML IV SCH (08:17)
[2020-04-23] MEDS: TAMSULOSIN 0.4 MG CAPSULE PO SCH ×2 (09:01→20:39)
[2020-04-23] MEDS: PREGABALIN 75 MG CAPSULE PO SCH ×2 (09:01→20:39)
[2020-04-23] MEDS: cefTRIAXone 2,000 MG in SYRINGE 1 EACH IV SCH (15:18)
[2020-04-23] MEDS: MONTELUKAST 10 MG TABLET PO SCH (20:39)
[2020-04-23] MEDS: FINASTERIDE 5 MG TABLET PO SCH (20:40)
[2020-04-23] MEDS: rOPINIRole 4 MG TABLET PO SCH (20:40)
[2020-04-24] MEDS: ALBUTEROL INHALER 18 GM INH SCH ×4 (01:18→18:59)
[2020-04-24] MEDS: PREGABALIN 75 MG CAPSULE PO SCH ×2 (10:06→20:34)
[2020-04-24] MEDS: TAMSULOSIN 0.4 MG CAPSULE PO SCH ×2 (10:06→20:34)
[2020-04-24] MEDS: cefTRIAXone 2,000 MG in SYRINGE 1 EACH IV SCH (10:08)
[2020-04-24] MEDS: GABAPENTIN 300 MG CAPSULE PO PRN ×2 (12:28→20:38)
[2020-04-24] MEDS: IRON SUCROSE 200 MG in SODIUM CHLORIDE 0.9% 100 ML IV SCH (12:29)
[2020-04-24] MEDS: FINASTERIDE 5 MG TABLET PO SCH (20:34)
[2020-04-24] MEDS: rOPINIRole 4 MG TABLET PO SCH (20:34)
[2020-04-24] MEDS: MONTELUKAST 10 MG TABLET PO SCH (20:35)
[2020-04-25] MEDS: ALBUTEROL INHALER 18 GM INH SCH ×4 (01:32→20:49)
[2020-04-25] MEDS: TAMSULOSIN 0.4 MG CAPSULE PO SCH ×2 (10:22→20:49)
[2020-04-25] MEDS: cefTRIAXone 2,000 MG in SYRINGE 1 EACH IV SCH (10:22)
[2020-04-25] MEDS: PREGABALIN 75 MG CAPSULE PO SCH ×2 (10:22→20:49)
[2020-04-25] MEDS: GABAPENTIN 300 MG CAPSULE PO PRN ×2 (10:22→20:48)
[2020-04-25] MEDS: IRON SUCROSE 200 MG in SODIUM CHLORIDE 0.9% 100 ML IV SCH (10:27)
[2020-04-25] MEDS: rOPINIRole 4 MG TABLET PO SCH (20:48)
[2020-04-25] MEDS: MONTELUKAST 10 MG TABLET PO SCH (20:49)
[2020-04-25] MEDS: FINASTERIDE 5 MG TABLET PO SCH (20:49)
[2020-04-26] MEDS: ALBUTEROL INHALER 18 GM INH SCH ×4 (00:05→21:34)
[2020-04-26 03:36] LABS: Basophils % 0.3 % (0.0-0.8); Eosinophils # 0.4 10*3/uL (0.0-0.87); Eosinophils % 3.8 % (0.00-10.9); Hematocrit 25.4 VOL% (42.0-52.0); Hemoglobin 7.5 GM/DL (14.0-18.0); Immature Granulocytes % 3.7 %; Immature Granulocytes Absolute 0.34 #; Lymphocytes # 1.4 10*3/uL (1.4-4.0); Lymphocytes % 14.7 % (21.2-54.2); Mean Corpuscular HGB Conc 29.5 GM/DL (32-36); Mean Corpuscular Volume 74.5 FL (87-102); Monocytes % 14.1 % (1.7-12.7); Neutrophils % 63.4 % (38.7-73.9); Platelet Count 220 T/CUMM (130-400); Red Blood Count 3.41 MC/CUMM (3.8-5.5); Red Cell Distribution Width 20.4 % (9.3-17.3); White Blood Count 9.2 T/CUMM (4-12)
[2020-04-26 04:25] LABS: Calcium 8.8 MG/DL (8.5-10.1); Osmolality,Calculated 271.1 MOS/KG (273-304)
[2020-04-26 04:47] LABS: Anisocytosis 1+; Hypochromasia 1+; Ovalocytes 1+; Platelet Estimate Normal
[2020-04-26] MEDS ORDERED: NON-FORMULARY MEDICATION (Umeclidinium [Incruse Ellipta] 1 PUFF) INH PRN (09:45)
[2020-04-26] MEDS: cefTRIAXone 2,000 MG in SYRINGE 1 EACH IV SCH (11:44)
[2020-04-26] MEDS: TAMSULOSIN 0.4 MG CAPSULE PO SCH ×2 (11:46→21:33)
[2020-04-26] MEDS: PREGABALIN 75 MG CAPSULE PO SCH ×2 (11:46→21:33)
[2020-04-26] MEDS: GABAPENTIN 300 MG CAPSULE PO PRN ×2 (16:04→21:33)
[2020-04-26] MEDS ORDERED: rOPINIRole 4 MG TABLET PO ONE (16:04)
[2020-04-26] MEDS: MONTELUKAST 10 MG TABLET PO SCH (21:33)
[2020-04-26] MEDS: FINASTERIDE 5 MG TABLET PO SCH (21:33)
[2020-04-26] MEDS: rOPINIRole 4 MG TABLET PO SCH (21:39)
[2020-04-27] MEDS: ALBUTEROL INHALER 18 GM INH SCH ×2 (02:56→06:47)
[2020-04-27 03:14] LABS: Basophils # 0.1 10*3/uL (0.0-0.2); Basophils % 0.7 % (0.0-0.8); Eosinophils # 0.5 10*3/uL (0.0-0.87); Eosinophils % 5.7 % (0.00-10.9); Hematocrit 25.5 VOL% (42.0-52.0); Hemoglobin 7.5 GM/DL (14.0-18.0); Immature Granulocytes % 2.3 %; Immature Granulocytes Absolute 0.19 #; Lymphocytes # 1.4 10*3/uL (1.4-4.0); Lymphocytes % 16.1 % (21.2-54.2); Mean Corpuscular HGB Conc 29.4 GM/DL (32-36); Mean Corpuscular Volume 73.5 FL (87-102); Monocytes % 12.4 % (1.7-12.7); Neutrophils % 62.8 % (38.7-73.9); Platelet Count 287 T/CUMM (130-400); Red Blood Count 3.47 MC/CUMM (3.8-5.5); Red Cell Distribution Width 21.1 % (9.3-17.3); White Blood Count 8.4 T/CUMM (4-12)
[2020-04-27 03:28] LABS: Osmolality,Calculated 275.7 MOS/KG (273-304)
[2020-04-27 04:28] LABS: Eosinophils 6 % (0-10); Hypochromasia 2+; Lymphocytes 19 % (20-55); Ovalocytes Slight; Platelet Estimate Adequate; Segmented Neutrophils 63 % (50-85); Total Cells Counted 100
[2020-04-27 07:34] VITALS: BP 135/72
[2020-04-27] MEDS: PREGABALIN 75 MG CAPSULE PO SCH (08:59)
[2020-04-27] MEDS: TAMSULOSIN 0.4 MG CAPSULE PO SCH (08:59)
[2020-04-27] MEDS ORDERED: REGADENOSON 0.4 MG/5 ML SYRINGE IV ONE (09:38)
== END 2020-04-27 10:40 | disposition home or self-care (01) | DRG 871 ==
LOC: N.ED 12:15 → N.EDINP 15:17 → SUATTDRO 15:17 → N.EDINP 16:15 → N.2E 16:39 → N.4E 04-23 16:07
PROVIDERS: ADMIT Internal Medicine; ATTEND Internal Medicine

== ENCOUNTER 2021-02-19 11:52 | Inpatient (IN) ==
[2021-02-19] MEDS ORDERED: ALBUTEROL/IPRATROPIUM 3 ML NEB RESP TX STA (12:20)
[2021-02-19] MEDS ORDERED: cefTRIAXone 1,000 MG in SODIUM CHLORIDE 0.9% 100 ML IV STA (12:20)
[2021-02-19] MEDS ORDERED: AZITHROMYCIN INJ 500 MG in SODIUM CHLORIDE 0.9% 250 ML IV STA (12:20)
[2021-02-19] MEDS ORDERED: methylPREDNISolone SOD SUC 125 MG/2 ML VIAL IV STA (12:20)
[2021-02-19] MEDS ORDERED: SODIUM CHLORIDE 0.9% 1,000 ML IV STA (12:49)
[2021-02-19 13:03] LABS: Basophils % 0.2 % (0.0-0.8); Hematocrit 28.1 VOL% (42.0-52.0); Hemoglobin 8.3 GM/DL (14.0-18.0); Immature Granulocytes Absolute 0.14 #; Lymphocytes # 0.6 10*3/uL (1.4-4.0); Lymphocytes % 4.3 % (21.2-54.2); Mean Corpuscular HGB Conc 29.5 GM/DL (32-36); Mean Corpuscular Volume 76.6 FL (87-102); Monocytes % 13.1 % (1.7-12.7); Neutrophils % 81.4 % (38.7-73.9); Platelet Count 159 T/CUMM (130-400); Red Blood Count 3.67 MC/CUMM (3.8-5.5); Red Cell Distribution Width 17.2 % (9.3-17.3); White Blood Count 13.4 T/CUMM (4-12)
[2021-02-19 13:23] LABS: Calcium 8.3 MG/DL (8.5-10.1); Osmolality,Calculated 283.3 MOS/KG (273-304); Potassium 3.6 MMOL/L (3.5-5.1); Total Protein 6.7 G/DL (6.4-8.2)
[2021-02-19 13:25] LABS: Acanthocytes 1+; Anisocytosis 2+; Band Neutrophils 1 % (0-10); Lymphocytes 7 % (20-55); Microcytosis 2+; Nucleated Red Blood Cells 1 (0-5); Platelet Estimate Adequate; Schistocytes 1+; Segmented Neutrophils 87 % (50-85); Total Cells Counted 100
[2021-02-19 13:26] LABS: Elliptocytes Few; Hypochromasia 1+; Poikilocytosis 2+
[2021-02-19 14:12] LABS: ABG Base Excess 3.9 MMOL/L (-2.5-2.5); ABG HCO3 27.9 MMOL/L (20-26); ABG Oxygen Saturation 98.2 % (95-100); ABG PCO2 47.5 MM HG (35-48); ABG PH 7.397 (7.35-7.45); ABG TCO2 27.3 MMOL/L (23-27)
[2021-02-19] MEDS ORDERED: BUDESONIDE 0.5 MG/2 ML NEB RESP TX STA (15:49)
[2021-02-19] MEDS ORDERED: ONDANSETRON 4 MG/2 ML VIAL IV PRN (16:02)
[2021-02-19] MEDS ORDERED: DEXTROSE 50% 25 GM/50 ML VIAL IV PRN (16:02)
[2021-02-19] MEDS ORDERED: GLUCAGON 1 MG VIAL IM PRN (16:02)
[2021-02-19] MEDS ORDERED: DOCUSATE SODIUM 100 MG CAPSULE PO PRN (16:02)
[2021-02-19] MEDS ORDERED: ACETAMINOPHEN 325 MG TABLET PO PRN (16:02)
[2021-02-19] MEDS ORDERED: CHLORPHENIRAMINE PHENYLEPHRINE PO PRN (16:09)
[2021-02-19 16:32] LABS: Risk Ratio 2.34; Thyroid Stimulating Hormone 1.07 uIU/ml (0.358-3.74)
[2021-02-19] MEDS ORDERED: MAGNESIUM SULF RIDER 2 GM in PREMIX 1 EACH IV PRN (16:42)
[2021-02-19] MEDS ORDERED: MAGNESIUM SULF RIDER 4 GM in PREMIX 1 EACH IV PRN (16:42)
[2021-02-19] MEDS ORDERED: LACTATED RINGERS 1,000 ML IV SCH (17:00)
[2021-02-19] MEDS ORDERED: GABAPENTIN 300 MG CAPSULE PO SCH ×2 (19:00→21:00)
[2021-02-19] MEDS: ALBUTEROL/IPRATROPIUM 3 ML NEB RESP TX SCH (19:45)
[2021-02-19] MEDS: TAMSULOSIN 0.4 MG CAPSULE PO SCH (20:52)
[2021-02-19] MEDS: APIXABAN 5 MG TABLET PO SCH (20:52)
[2021-02-19] MEDS: rOPINIRole 1 MG TABLET PO SCH (20:53)
[2021-02-19] MEDS: PREGABALIN 75 MG CAPSULE PO SCH (20:53)
[2021-02-19] MEDS: POTASSIUM CHLORIDE 20 MEQ TABLET PO SCH (20:53)
[2021-02-19] MEDS: MONTELUKAST 10 MG TABLET PO SCH (20:54)
[2021-02-19] MEDS ORDERED: FAMOTIDINE 20 MG TABLET PO SCH (21:00)
[2021-02-20] MEDS: ALBUTEROL/IPRATROPIUM 3 ML NEB RESP TX SCH ×4 (01:11→19:45)
[2021-02-20 05:47] LABS: Basophils % 0.1 % (0.0-0.8); Hematocrit 25.6 VOL% (42.0-52.0); Hemoglobin 7.8 GM/DL (14.0-18.0); Immature Granulocytes % 1.4 %; Immature Granulocytes Absolute 0.19 #; Lymphocytes # 0.3 10*3/uL (1.4-4.0); Mean Corpuscular HGB Conc 30.5 GM/DL (32-36); Mean Corpuscular Volume 75.1 FL (87-102); Monocytes % 7.6 % (1.7-12.7); NRBC # 0.02 10*3/uL; Neutrophils % 88.9 % (38.7-73.9); Platelet Count 138 T/CUMM (130-400); Red Blood Count 3.41 MC/CUMM (3.8-5.5); Red Cell Distribution Width 17.2 % (9.3-17.3); White Blood Count 13.6 T/CUMM (4-12)
[2021-02-20 06:01] LABS: Bilirubin,Urine Negative (Negative); Blood, Urine Small mg/dL (Negative); Glucose,Urine (UA) Negative (Negative); Ketones,Urine Negative (Negative); Mucus,Urine Occasional /LPF (Occasional); Nitrite,Urine Negative (Negative); Protein,Urine 30 MG/DL; RBC,Urine 7 /HPF (0-4); Urine Appearance CLEAR (Clear); Urine Color Yellow (Yellow)
[2021-02-20 06:09] LABS: Hypochromasia 2+; Lymphocytes 2 % (20-55); Microcytosis 1+; Ovalocytes Slight; Platelet Estimate Adequate; Segmented Neutrophils 91 % (50-85); Total Cells Counted 100
[2021-02-20 06:10] LABS: Barbiturates Screen,Urine Negative (Negative); Benzodiazepines Screen,Urine Negative (Negative); Cannabinoid Screen,Urine Negative (Negative); Opiate Screen,Urine Positive (Negative); Phencyclidine Screen,Urine Negative (Negative)
[2021-02-20 06:14] LABS: Calcium 8.6 MG/DL (8.5-10.1); Osmolality,Calculated 282.5 MOS/KG (273-304)
[2021-02-20 08:21] LABS: % Iron Saturation 2.8 % (18-50); Ferritin 32.8 ng/ml (26-388)
[2021-02-20] MEDS: FUROSEMIDE 40 MG TABLET PO SCH (08:43)
[2021-02-20] MEDS: SERTRALINE 50 MG TABLET PO SCH (08:43)
[2021-02-20] MEDS: methylPREDNISolone SOD SUC 40 MG/1 ML VIAL IV SCH ×2 (08:43→16:19)
[2021-02-20] MEDS: POTASSIUM CHLORIDE 20 MEQ TABLET PO SCH ×2 (08:43→20:36)
[2021-02-20] MEDS: APIXABAN 5 MG TABLET PO SCH ×2 (08:43→20:36)
[2021-02-20] MEDS: TAMSULOSIN 0.4 MG CAPSULE PO SCH ×2 (08:43→20:36)
[2021-02-20] MEDS: PREGABALIN 75 MG CAPSULE PO SCH ×2 (08:44→20:36)
[2021-02-20] MEDS ORDERED: CETIRIZINE 10 MG TABLET PO SCH (09:00)
[2021-02-20] MEDS ORDERED: GABAPENTIN 300 MG CAPSULE PO SCH (09:00)
[2021-02-20] MEDS ORDERED: AZITHROMYCIN INJ 500 MG in SODIUM CHLORIDE 0.9% 250 ML IV SCH (12:30)
[2021-02-20] MEDS ORDERED: cefTRIAXone 1,000 MG in SYRINGE 1 EACH IV SCH (12:30)
[2021-02-20] MEDS: MEROPENEM 500 MG in SODIUM CHLORIDE 0.9% 100 ML IV SCH ×2 (15:33→20:35)
[2021-02-20] MEDS: PANTOPRAZOLE 40 MG TABLET PO SCH ×2 (15:33→20:36)
[2021-02-20] MEDS: MONTELUKAST 10 MG TABLET PO SCH (20:36)
[2021-02-20] MEDS: rOPINIRole 1 MG TABLET PO SCH (20:36)
[2021-02-21] MEDS: ALBUTEROL/IPRATROPIUM 3 ML NEB RESP TX SCH ×4 (00:30→19:29)
[2021-02-21] MEDS: methylPREDNISolone SOD SUC 40 MG/1 ML VIAL IV SCH ×3 (02:00→22:33)
[2021-02-21] MEDS: MEROPENEM 500 MG in SODIUM CHLORIDE 0.9% 100 ML IV SCH ×4 (03:21→21:04)
[2021-02-21 05:35] LABS: Basophils % 0.1 % (0.0-0.8); Hematocrit 26.1 VOL% (42.0-52.0); Hemoglobin 7.8 GM/DL (14.0-18.0); Immature Granulocytes % 0.7 %; Lymphocytes # 0.2 10*3/uL (1.4-4.0); Lymphocytes % 1.4 % (21.2-54.2); Mean Corpuscular HGB Conc 29.9 GM/DL (32-36); Mean Corpuscular Volume 74.6 FL (87-102); Monocytes % 3.9 % (1.7-12.7); Neutrophils % 93.9 % (38.7-73.9); Platelet Count 134 T/CUMM (130-400); Red Cell Distribution Width 17.2 % (9.3-17.3); White Blood Count 14.4 T/CUMM (4-12)
[2021-02-21 05:46] LABS: Calcium 8.8 MG/DL (8.5-10.1); Osmolality,Calculated 281.8 MOS/KG (273-304); Potassium 3.9 MMOL/L (3.5-5.1)
[2021-02-21 05:55] LABS: Band Neutrophils 1 % (0-10); Lymphocytes 1 % (20-55); Segmented Neutrophils 96 % (50-85); Total Cells Counted 100
[2021-02-21 05:56] LABS: Hypochromasia 2+
[2021-02-21 05:57] LABS: Acanthocytes Few; Microcytosis 1+; Ovalocytes Few
[2021-02-21 05:58] LABS: Anisocytosis 1+; Poikilocytosis 1+; Target Cells Slight
[2021-02-21] MEDS: TAMSULOSIN 0.4 MG CAPSULE PO SCH ×2 (08:46→21:04)
[2021-02-21] MEDS: POTASSIUM CHLORIDE 20 MEQ TABLET PO SCH ×2 (08:46→21:03)
[2021-02-21] MEDS: PREGABALIN 75 MG CAPSULE PO SCH ×2 (08:46→21:03)
[2021-02-21] MEDS: PANTOPRAZOLE 40 MG TABLET PO SCH ×2 (08:46→21:03)
[2021-02-21] MEDS: FUROSEMIDE 40 MG TABLET PO SCH (08:46)
[2021-02-21] MEDS: APIXABAN 5 MG TABLET PO SCH ×2 (08:46→21:03)
[2021-02-21] MEDS: SERTRALINE 50 MG TABLET PO SCH (08:46)
[2021-02-21] MEDS: MONTELUKAST 10 MG TABLET PO SCH (21:03)
[2021-02-21] MEDS: rOPINIRole 1 MG TABLET PO SCH (21:03)
[2021-02-22] MEDS: ALBUTEROL/IPRATROPIUM 3 ML NEB RESP TX SCH ×4 (00:17→20:02)
[2021-02-22] MEDS: MEROPENEM 500 MG in SODIUM CHLORIDE 0.9% 100 ML IV SCH ×2 (03:32→08:17)
[2021-02-22 05:47] LABS: Hematocrit 25.4 VOL% (42.0-52.0); Immature Granulocytes % 0.2 %; Immature Granulocytes Absolute 0.02 #; Lymphocytes # 0.3 10*3/uL (1.4-4.0); Lymphocytes % 3.2 % (21.2-54.2); Mean Corpuscular HGB Conc 31.5 GM/DL (32-36); NRBC # 0.02 10*3/uL; Neutrophils % 92.6 % (38.7-73.9); Platelet Count 175 T/CUMM (130-400); Red Blood Count 3.48 MC/CUMM (3.8-5.5); Red Cell Distribution Width 17.2 % (9.3-17.3); White Blood Count 8.3 T/CUMM (4-12)
[2021-02-22 06:11] LABS: Osmolality,Calculated 280.8 MOS/KG (273-304); Potassium 3.9 MMOL/L (3.5-5.1)
[2021-02-22 06:33] LABS: Hypochromasia 1+; Lymphocytes 1 % (20-55); Microcytosis 1+; Platelet Estimate Normal; Segmented Neutrophils 97 % (50-85); Total Cells Counted 100
[2021-02-22] MEDS: POTASSIUM CHLORIDE 20 MEQ TABLET PO SCH ×2 (08:16→20:40)
[2021-02-22] MEDS: TAMSULOSIN 0.4 MG CAPSULE PO SCH ×2 (08:16→20:39)
[2021-02-22] MEDS: methylPREDNISolone SOD SUC 40 MG/1 ML VIAL IV SCH (08:16)
[2021-02-22] MEDS: FUROSEMIDE 40 MG TABLET PO SCH (08:16)
[2021-02-22] MEDS: APIXABAN 5 MG TABLET PO SCH ×2 (08:16→20:40)
[2021-02-22] MEDS: SERTRALINE 50 MG TABLET PO SCH (08:16)
[2021-02-22] MEDS: PREGABALIN 75 MG CAPSULE PO SCH ×2 (08:16→20:39)
[2021-02-22] MEDS: PANTOPRAZOLE 40 MG TABLET PO SCH ×2 (08:16→20:39)
[2021-02-22] MEDS: LEVOFLOXACIN 750 MG TABLET PO SCH (14:30)
[2021-02-22] MEDS: rOPINIRole 1 MG TABLET PO SCH (20:39)
[2021-02-22] MEDS: MONTELUKAST 10 MG TABLET PO SCH (20:40)
[2021-02-23] MEDS: ALBUTEROL/IPRATROPIUM 3 ML NEB RESP TX SCH ×3 (02:52→13:20)
[2021-02-23] MEDS: PANTOPRAZOLE 40 MG TABLET PO SCH (08:16)
[2021-02-23] MEDS: LEVOFLOXACIN 750 MG TABLET PO SCH (08:16)
[2021-02-23] MEDS: FUROSEMIDE 40 MG TABLET PO SCH (08:16)
[2021-02-23] MEDS: PREGABALIN 75 MG CAPSULE PO SCH (08:16)
[2021-02-23] MEDS: TAMSULOSIN 0.4 MG CAPSULE PO SCH (08:16)
[2021-02-23] MEDS: APIXABAN 5 MG TABLET PO SCH (08:17)
[2021-02-23] MEDS: POTASSIUM CHLORIDE 20 MEQ TABLET PO SCH (08:17)
[2021-02-23] MEDS: SERTRALINE 50 MG TABLET PO SCH (08:17)
[2021-02-23] MEDS ORDERED: predniSONE 20 MG TABLET PO SCH (09:00)
[2021-02-23 15:46] VITALS: BP 118/60
== END 2021-02-23 17:44 | disposition home health service (06) | DRG 871 ==
LOC: EDUNIT# → EDBD → N.ED 11:52 → N.EDINP 11:52 → SUATTDRO 16:02 → N.5E 16:38 → MERGE 02-21 11:37
PROVIDERS: ADMIT Internal Medicine; ATTEND Internal Medicine

== ENCOUNTER 2021-03-16 22:30 | Inpatient (IN) ==
[2021-03-16] MEDS ORDERED: ALBUTEROL/IPRATROPIUM 3 ML NEB RESP TX STA (23:02)
[2021-03-16] MEDS ORDERED: methylPREDNISolone SOD SUC 125 MG/2 ML VIAL IV STA (23:02)
[2021-03-16 23:38] LABS: Alanine Aminotransferase 21 U/L (16-61); Albumin 3.6 G/DL (3.4-5.0); Alkaline Phosphatase 99 U/L (45-117); Aspartate Amino Transferase 27 U/L (0-37); Blood Urea Nitrogen 14 MG/DL (7-18); CKMB % 4.8 %; Calcium 9.4 MG/DL (8.5-10.1); Estimated Glom Filtration Rate 47 ML/MIN; Glucose 128 MG/DL (74-106); Osmolality,Calculated 279.5 MOS/KG (273-304); Potassium 4.4 MMOL/L (3.5-5.1); Sodium 139 MMOL/L (136-145); Total Protein 7.7 G/DL (6.4-8.2); Troponin I < 0.015 NG/ML (0.00-0.045)
[2021-03-16] MEDS ORDERED: ALBUTEROL NEB SOLN 5 MG/ML 20 ML/BOTTLE CONT NEB STA (23:46)
[2021-03-16 23:48] LABS: Carbon Dioxide 33 MMOL/L (21-32)
[2021-03-16 23:51] LABS: Basophils % 0.4 % (0.0-0.8); Eosinophils # 0.8 10*3/uL (0.0-0.87); Eosinophils % 7.2 % (0.00-10.9); Hematocrit 28.4 VOL% (42.0-52.0); Hemoglobin 8.1 GM/DL (14.0-18.0); Immature Granulocytes % 0.3 %; Immature Granulocytes Absolute 0.03 #; Lymphocytes # 0.9 10*3/uL (1.4-4.0); Lymphocytes % 8.7 % (21.2-54.2); Mean Corpuscular HGB Conc 28.5 GM/DL (32-36); Mean Corpuscular Volume 77.2 FL (87-102); Mean Platelet Volume 11.3 FL (9.6-12.0); Monocytes % 13.1 % (1.7-12.7); Neutrophils % 70.3 % (38.7-73.9); Platelet Count 425 T/CUMM (130-400); Red Blood Count 3.68 MC/CUMM (3.8-5.5); White Blood Count 10.8 T/CUMM (4-12)
[2021-03-17 00:11] LABS: ABG Base Excess 5.6 MMOL/L (-2.5-2.5); ABG HCO3 34.2 MMOL/L (20-26); ABG Oxygen Saturation 92.1 % (95-100); ABG PH 7.252 (7.35-7.45); ABG PO2 78.5 MM HG (80-95); ABG TCO2 36.6 MMOL/L (23-27); Allen Test Positive; Pt O2 Delivery Device Simple Mask
[2021-03-17 00:24] LABS: ABG PCO2 79.3 MM HG (35-48)
[2021-03-17] MEDS ORDERED: ROCURONIUM 100 MG/10 ML VIAL IV STA (00:55)
[2021-03-17] MEDS ORDERED: ETOMIDATE 20 MG/10 ML VIAL IV STA (00:55)
[2021-03-17] MEDS ORDERED: LABETALOL 100 MG/20 ML VIAL IV STA (01:37)
[2021-03-17] MEDS ORDERED: ONDANSETRON 4 MG/2 ML VIAL IV PRN (01:50)
[2021-03-17] MEDS ORDERED: ACETAMINOPHEN 325 MG TABLET PO PRN (01:50)
[2021-03-17] MEDS ORDERED: hydrALAZINE 20 MG/1 ML VIAL IV PRN (01:50)
[2021-03-17] MEDS ORDERED: NICOTINE 21 MG/24 HR PATCH TRANSDERM PRN (01:50)
[2021-03-17 01:55] LABS: ABG Base Excess 3.4 MMOL/L (-2.5-2.5); ABG HCO3 27.5 MMOL/L (20-26); ABG PCO2 59.9 MM HG (35-48); ABG PH 7.317 (7.35-7.45); ABG TCO2 28.7 MMOL/L (23-27)
[2021-03-17] MEDS ORDERED: SODIUM CHLORIDE 0.9% 1,000 ML IV SCH (02:00)
[2021-03-17 03:14] LABS: CKMB % 4.9 %; Troponin I < 0.015 NG/ML (0.00-0.045)
[2021-03-17] MEDS: PANTOPRAZOLE 40 MG VIAL IV SCH (03:25)
[2021-03-17 04:41] LABS: ABG Base Excess 4.1 MMOL/L (-2.5-2.5); ABG HCO3 28.1 MMOL/L (20-26); ABG PCO2 66.8 MM HG (35-48); ABG PH 7.288 (7.35-7.45); ABG TCO2 30.2 MMOL/L (23-27)
[2021-03-17] MEDS ORDERED: methylPREDNISolone SOD SUC 40 MG/1 ML VIAL IV SCH ×2 (05:00→09:00)
[2021-03-17] MEDS: ALBUTEROL/IPRATROPIUM 3 ML NEB RESP TX SCH ×3 (07:26→19:41)
[2021-03-17 07:28] LABS: ABG Base Excess 4.3 MMOL/L (-2.5-2.5); ABG HCO3 28.3 MMOL/L (20-26); ABG PCO2 51.5 MM HG (35-48); ABG PH 7.375 (7.35-7.45); ABG TCO2 28.4 MMOL/L (23-27)
[2021-03-17 07:29] LABS: Allen Test Positive; Pt O2 Delivery Device Ventilator
[2021-03-17 08:08] LABS: Albumin 2.9 G/DL (3.4-5.0); Bilirubin,Total 0.4 MG/DL (0.2-1.0); Calcium 8.9 MG/DL (8.5-10.1); Osmolality,Calculated 279.7 MOS/KG (273-304); Potassium 4.8 MMOL/L (3.5-5.1); Total Protein 6.5 G/DL (6.4-8.2)
[2021-03-17 08:10] LABS: Basophils % 0.1 % (0.0-0.8); Eosinophils % 0.1 % (0.00-10.9); Hematocrit 23.9 VOL% (42.0-52.0); Immature Granulocytes % 0.3 %; Immature Granulocytes Absolute 0.02 #; Lymphocytes # 0.4 10*3/uL (1.4-4.0); Lymphocytes % 5.2 % (21.2-54.2); Mean Corpuscular HGB Conc 29.7 GM/DL (32-36); Mean Corpuscular Volume 76.6 FL (87-102); Mean Platelet Volume 12.5 FL (9.6-12.0); Monocytes % 2.4 % (1.7-12.7); Neutrophils % 91.9 % (38.7-73.9); Platelet Count 339 T/CUMM (130-400); Red Blood Count 3.12 MC/CUMM (3.8-5.5); Red Cell Distribution Width 18.7 % (9.3-17.3); White Blood Count 6.8 T/CUMM (4-12)
[2021-03-17 08:13] LABS: Hemoglobin 7.1 GM/DL (14.0-18.0)
[2021-03-17 08:16] LABS: Hypochromasia 2+; Lymphocytes 4 % (20-55); Microcytosis 1+; Ovalocytes Few; Segmented Neutrophils 91 % (50-85); Total Cells Counted 100
[2021-03-17 08:18] LABS: Platelet Estimate Normal
[2021-03-17] MEDS ORDERED: SODIUM CHLORIDE 0.9% 1,000 ML IV PRN (08:48)
[2021-03-17] MEDS: ENOXAPARIN 40 MG/0.4 ML SYRINGE SUBCUT SCH (09:15)
[2021-03-17] MEDS: LEVOFLOXACIN INJ 500 MG/100 ML PREMIX IV SCH (09:56)
[2021-03-17] MEDS ORDERED: LORazepam 1 MG TABLET PO SCH (14:16)
[2021-03-17] MEDS: LORazepam 1 MG TABLET PO SCH ×2 (14:56→20:23)
[2021-03-17] MEDS: methylPREDNISolone SOD SUC 40 MG/1 ML VIAL IV SCH (16:58)
[2021-03-17 17:44] LABS: Hematocrit 26.5 VOL% (42.0-52.0); Hemoglobin 7.7 GM/DL (14.0-18.0)
[2021-03-17] MEDS: MORPHINE 4 MG/1 ML VIAL IV PRN (22:20)
[2021-03-18] MEDS: ALBUTEROL/IPRATROPIUM 3 ML NEB RESP TX SCH ×4 (01:36→20:02)
[2021-03-18] MEDS: PANTOPRAZOLE 40 MG VIAL IV SCH (02:30)
[2021-03-18] MEDS: LORazepam 1 MG TABLET PO SCH ×4 (02:37→20:08)
[2021-03-18 04:28] LABS: Basophils % 0.1 % (0.0-0.8); Hematocrit 24.2 VOL% (42.0-52.0); Hemoglobin 7.5 GM/DL (14.0-18.0); Immature Granulocytes % 0.3 %; Immature Granulocytes Absolute 0.02 #; Lymphocytes # 0.4 10*3/uL (1.4-4.0); Lymphocytes % 5.8 % (21.2-54.2); Mean Corpuscular Volume 75.9 FL (87-102); Mean Platelet Volume 12.1 FL (9.6-12.0); Monocytes % 7.6 % (1.7-12.7); Neutrophils % 86.2 % (38.7-73.9); Platelet Count 290 T/CUMM (130-400); Red Blood Count 3.19 MC/CUMM (3.8-5.5); Red Cell Distribution Width 18.1 % (9.3-17.3); White Blood Count 7.1 T/CUMM (4-12)
[2021-03-18 04:31] LABS: ABG Base Excess 6.3 MMOL/L (-2.5-2.5); ABG HCO3 30.2 MMOL/L (20-26); ABG Oxygen Saturation 99.7 % (95-100); ABG PH 7.412 (7.35-7.45); ABG TCO2 29.4 MMOL/L (23-27); Allen Test Positive; Pt O2 Delivery Device Ventilator
[2021-03-18 04:42] LABS: Calcium 8.9 MG/DL (8.5-10.1); Potassium 4.3 MMOL/L (3.5-5.1)
[2021-03-18] MEDS: methylPREDNISolone SOD SUC 40 MG/1 ML VIAL IV SCH ×2 (05:35→16:25)
[2021-03-18] MEDS: LEVOFLOXACIN INJ 500 MG/100 ML PREMIX IV SCH (08:40)
[2021-03-18] MEDS: ENOXAPARIN 40 MG/0.4 ML SYRINGE SUBCUT SCH (08:45)
[2021-03-18] MEDS: MORPHINE 4 MG/1 ML VIAL IV PRN (22:53)
[2021-03-19] MEDS: ALBUTEROL/IPRATROPIUM 3 ML NEB RESP TX SCH ×4 (01:15→21:15)
[2021-03-19] MEDS: PANTOPRAZOLE 40 MG VIAL IV SCH (02:23)
[2021-03-19] MEDS: LORazepam 1 MG TABLET PO SCH ×4 (02:23→21:23)
[2021-03-19 04:08] LABS: ABG Base Excess 9.9 MMOL/L (-2.5-2.5); ABG HCO3 35.6 MMOL/L (20-26); ABG Oxygen Saturation 98.5 % (95-100); ABG PCO2 56.5 MM HG (35-48); ABG PH 7.417 (7.35-7.45); ABG PO2 141.4 MM HG (80-95); ABG TCO2 37.3 MMOL/L (23-27)
[2021-03-19] MEDS: methylPREDNISolone SOD SUC 40 MG/1 ML VIAL IV SCH ×3 (04:32→18:10)
[2021-03-19 05:08] LABS: Hematocrit 26.7 VOL% (42.0-52.0); Hemoglobin 7.6 GM/DL (14.0-18.0); Immature Granulocytes % 0.5 %; Immature Granulocytes Absolute 0.04 #; Lymphocytes # 0.5 10*3/uL (1.4-4.0); Lymphocytes % 5.3 % (21.2-54.2); Mean Corpuscular HGB Conc 28.5 GM/DL (32-36); Mean Corpuscular Volume 79.2 FL (87-102); Monocytes % 9.4 % (1.7-12.7); Neutrophils % 84.8 % (38.7-73.9); Platelet Count 306 T/CUMM (130-400); Red Blood Count 3.37 MC/CUMM (3.8-5.5); Red Cell Distribution Width 18.7 % (9.3-17.3); White Blood Count 8.6 T/CUMM (4-12)
[2021-03-19 05:24] LABS: Potassium 4.4 MMOL/L (3.5-5.1)
[2021-03-19] MEDS: MORPHINE 4 MG/1 ML VIAL IV PRN (05:30)
[2021-03-19 06:18] LABS: Osmolality,Calculated 283.4 MOS/KG (273-304)
[2021-03-19] MEDS: guaiFENesin/DM ER 600-30 MG TABLET PO PRN (08:40)
[2021-03-19] MEDS: ENOXAPARIN 40 MG/0.4 ML SYRINGE SUBCUT SCH (08:40)
[2021-03-19] MEDS: LEVOFLOXACIN INJ 500 MG/100 ML PREMIX IV SCH (08:40)
[2021-03-19] MEDS: ALBUTEROL 2.5 MG/3 ML NEB RESP TX SCH ×3 (15:49→23:49)
[2021-03-20] MEDS: methylPREDNISolone SOD SUC 40 MG/1 ML VIAL IV SCH ×4 (01:00→20:22)
[2021-03-20] MEDS: ALBUTEROL 2.5 MG/3 ML NEB RESP TX SCH ×5 (03:08→20:55)
[2021-03-20 03:11] LABS: ABG Base Excess 11.7 MMOL/L (-2.5-2.5); ABG HCO3 38.3 MMOL/L (20-26); ABG Oxygen Saturation 98.2 % (95-100); ABG PCO2 63.9 MM HG (35-48); ABG PH 7.395 (7.35-7.45); ABG PO2 116.7 MM HG (80-95); ABG TCO2 40.2 MMOL/L (23-27)
[2021-03-20] MEDS: PANTOPRAZOLE 40 MG VIAL IV SCH (03:42)
[2021-03-20] MEDS: LORazepam 1 MG TABLET PO SCH ×3 (03:44→14:57)
[2021-03-20 04:04] LABS: Hematocrit 28.4 VOL% (42.0-52.0); Hemoglobin 8.5 GM/DL (14.0-18.0); Immature Granulocytes % 0.5 %; Immature Granulocytes Absolute 0.05 #; Lymphocytes # 0.3 10*3/uL (1.4-4.0); Lymphocytes % 3.1 % (21.2-54.2); Mean Corpuscular HGB Conc 29.9 GM/DL (32-36); Mean Platelet Volume 11.6 FL (9.6-12.0); Monocytes % 6.4 % (1.7-12.7); Platelet Count 272 T/CUMM (130-400); Red Blood Count 3.69 MC/CUMM (3.8-5.5); Red Cell Distribution Width 18.6 % (9.3-17.3); White Blood Count 9.8 T/CUMM (4-12)
[2021-03-20 04:12] LABS: Osmolality,Calculated 282.7 MOS/KG (273-304); Potassium 4.8 MMOL/L (3.5-5.1)
[2021-03-20 04:15] LABS: Hypochromasia 1+; Lymphocytes 1 % (20-55); Microcytosis 1+; Platelet Estimate Adequate; Segmented Neutrophils 94 % (50-85); Total Cells Counted 100
[2021-03-20] MEDS: ALBUTEROL/IPRATROPIUM 3 ML NEB RESP TX SCH ×4 (04:32→19:00)
[2021-03-20] MEDS: ENOXAPARIN 40 MG/0.4 ML SYRINGE SUBCUT SCH (08:02)
[2021-03-20] MEDS: LEVOFLOXACIN INJ 500 MG/100 ML PREMIX IV SCH (08:02)
[2021-03-21] MEDS: methylPREDNISolone SOD SUC 40 MG/1 ML VIAL IV SCH ×4 (00:21→19:56)
[2021-03-21] MEDS: ALBUTEROL 2.5 MG/3 ML NEB RESP TX SCH ×3 (00:53→08:20)
[2021-03-21] MEDS: PANTOPRAZOLE 40 MG VIAL IV SCH (03:42)
[2021-03-21 04:03] LABS: ABG Base Excess 13.2 MMOL/L (-2.5-2.5); ABG PCO2 59.4 MM HG (35-48); ABG PH 7.433 (7.35-7.45); ABG TCO2 36.5 MMOL/L (23-27); Allen Test Positive
[2021-03-21] MEDS: ALBUTEROL/IPRATROPIUM 3 ML NEB RESP TX SCH ×4 (05:31→20:06)
[2021-03-21 06:16] LABS: Calcium 9.5 MG/DL (8.5-10.1); Potassium 4.1 MMOL/L (3.5-5.1)
[2021-03-21 06:24] LABS: Osmolality,Calculated 286.3 MOS/KG (273-304)
[2021-03-21 06:24] LABS: Calcium 9.3 MG/DL (8.5-10.1); Osmolality,Calculated 283.4 MOS/KG (273-304); Potassium 4.6 MMOL/L (3.5-5.1)
[2021-03-21 06:44] LABS: Basophils % 0.1 % (0.0-0.8); Hematocrit 33.5 VOL% (42.0-52.0); Hemoglobin 9.5 GM/DL (14.0-18.0); Immature Granulocytes % 0.4 %; Immature Granulocytes Absolute 0.03 #; Lymphocytes # 0.9 10*3/uL (1.4-4.0); Mean Corpuscular HGB Conc 28.4 GM/DL (32-36); Mean Corpuscular Volume 80.9 FL (87-102); Mean Platelet Volume 11.8 FL (9.6-12.0); Monocytes % 16.2 % (1.7-12.7); Neutrophils % 70.3 % (38.7-73.9); Platelet Count 223 T/CUMM (130-400); Red Blood Count 4.14 MC/CUMM (3.8-5.5); Red Cell Distribution Width 18.9 % (9.3-17.3); White Blood Count 7.2 T/CUMM (4-12)
[2021-03-21 06:53] LABS: Eosinophils 1 % (0-10); Lymphocytes 21 % (20-55); Platelet Estimate Normal; Segmented Neutrophils 60 % (50-85); Total Cells Counted 100
[2021-03-21 06:54] LABS: Anisocytosis 1+; Macrocytosis 1+
[2021-03-21] MEDS: ENOXAPARIN 40 MG/0.4 ML SYRINGE SUBCUT SCH (08:18)
[2021-03-21] MEDS: LEVOFLOXACIN INJ 500 MG/100 ML PREMIX IV SCH (08:20)
[2021-03-21] MEDS ORDERED: ZINC OXIDE PASTE 113 GM TUBE TOP PRN (15:30)
[2021-03-21] MEDS ORDERED: SKIN HEALING OINT (AQUAPHOR) 50 GM TUBE TOP PRN (15:32)
[2021-03-22] MEDS: ALBUTEROL/IPRATROPIUM 3 ML NEB RESP TX SCH ×2 (00:16→06:50)
[2021-03-22] MEDS: methylPREDNISolone SOD SUC 40 MG/1 ML VIAL IV SCH ×4 (01:15→18:00)
[2021-03-22] MEDS: PANTOPRAZOLE 40 MG VIAL IV SCH (01:16)
[2021-03-22 04:23] LABS: ABG Base Excess 10.1 MMOL/L (-2.5-2.5); ABG HCO3 33.9 MMOL/L (20-26); ABG Oxygen Saturation 98.8 % (95-100); ABG PCO2 51.2 MM HG (35-48); ABG PH 7.452 (7.35-7.45); ABG TCO2 32.3 MMOL/L (23-27); Allen Test Positive; Pt O2 Delivery Device BIPAP
[2021-03-22 05:01] LABS: Calcium 9.6 MG/DL (8.5-10.1); Osmolality,Calculated 286.4 MOS/KG (273-304); Potassium 4.7 MMOL/L (3.5-5.1)
[2021-03-22 05:06] LABS: Eosinophils % 0.2 % (0.00-10.9); Hematocrit 36.7 VOL% (42.0-52.0); Hemoglobin 10.5 GM/DL (14.0-18.0); Immature Granulocytes % 0.6 %; Immature Granulocytes Absolute 0.03 #; Lymphocytes # 0.4 10*3/uL (1.4-4.0); Lymphocytes % 7.7 % (21.2-54.2); Mean Corpuscular HGB Conc 28.6 GM/DL (32-36); Mean Corpuscular Volume 80.1 FL (87-102); Monocytes % 5.4 % (1.7-12.7); NRBC # 0.02 10*3/uL; Neutrophils % 86.1 % (38.7-73.9); Platelet Count 340 T/CUMM (130-400); Red Blood Count 4.58 MC/CUMM (3.8-5.5); Red Cell Distribution Width 19.2 % (9.3-17.3); White Blood Count 4.8 T/CUMM (4-12)
[2021-03-22 05:12] LABS: Hypochromasia 1+; Platelet Estimate Normal
[2021-03-22 05:13] LABS: Elliptocytes Few; Ovalocytes 1+; Schistocytes Few
[2021-03-22 05:14] LABS: Anisocytosis 1+; Helmet Cells Few; Microcytosis 1+; Poikilocytosis 1+
[2021-03-22] MEDS ORDERED: HydrOXYzine PAMOATE 25 MG CAPSULE PO PRN (08:40)
[2021-03-22] MEDS ORDERED: CALCIUM (CARBONATE) 600 MG TABLET PO PRN (08:46)
[2021-03-22] MEDS: LEVOFLOXACIN INJ 500 MG/100 ML PREMIX IV SCH (09:23)
[2021-03-22] MEDS: CHOLECALCIFEROL 1,000 UNIT TABLET PO SCH (09:24)
[2021-03-22] MEDS: FUROSEMIDE 20 MG TABLET PO SCH (09:24)
[2021-03-22] MEDS: GABAPENTIN 100 MG CAPSULE PO SCH (09:24)
[2021-03-22] MEDS: PANTOPRAZOLE 40 MG TABLET PO SCH (09:24)
[2021-03-22] MEDS: APIXABAN 5 MG TABLET PO SCH ×2 (09:24→20:34)
[2021-03-22] MEDS: TAMSULOSIN 0.4 MG CAPSULE PO SCH ×2 (09:24→20:35)
[2021-03-22] MEDS: POLYETHYLENE GLYCOL POWDER 17 GM PACK PO SCH ×2 (09:26→10:07)
[2021-03-22] MEDS: amLODIPine 5 MG TABLET PO SCH (09:26)
[2021-03-22] MEDS: ARFORMOTEROL 15 MCG/2 ML NEB RESP TX SCH ×2 (09:30→19:20)
[2021-03-22] MEDS: ALBUTEROL 2.5 MG/3 ML NEB RESP TX PRN (12:35)
[2021-03-22] MEDS: DILTIAZEM 30 MG TABLET PO SCH ×2 (12:50→17:33)
[2021-03-22] MEDS: MORPHINE 4 MG/1 ML VIAL IV PRN ×2 (18:58→22:50)
[2021-03-23] MEDS: methylPREDNISolone SOD SUC 40 MG/1 ML VIAL IV SCH ×2 (00:50→06:07)
[2021-03-23] MEDS: DILTIAZEM 30 MG TABLET PO SCH ×5 (00:50→23:35)
[2021-03-23] MEDS: MORPHINE 4 MG/1 ML VIAL IV PRN ×2 (06:20→11:15)
[2021-03-23 06:25] LABS: Calcium 9.4 MG/DL (8.5-10.1); Osmolality,Calculated 283.8 MOS/KG (273-304); Potassium 4.5 MMOL/L (3.5-5.1)
[2021-03-23] MEDS: ARFORMOTEROL 15 MCG/2 ML NEB RESP TX SCH ×2 (07:11→19:59)
[2021-03-23] MEDS: LEVOFLOXACIN INJ 500 MG/100 ML PREMIX IV SCH (08:10)
[2021-03-23] MEDS: PANTOPRAZOLE 40 MG TABLET PO SCH (08:11)
[2021-03-23] MEDS: amLODIPine 5 MG TABLET PO SCH (08:11)
[2021-03-23] MEDS: GABAPENTIN 100 MG CAPSULE PO SCH (08:11)
[2021-03-23] MEDS: TAMSULOSIN 0.4 MG CAPSULE PO SCH ×2 (08:11→20:18)
[2021-03-23] MEDS: APIXABAN 5 MG TABLET PO SCH ×2 (08:11→20:18)
[2021-03-23] MEDS: CHOLECALCIFEROL 1,000 UNIT TABLET PO SCH (08:11)
[2021-03-23] MEDS: guaiFENesin/DM ER 600-30 MG TABLET PO PRN (14:10)
[2021-03-23] MEDS ORDERED: methylPREDNISolone SOD SUC 40 MG/1 ML VIAL IV SCH (18:00)
[2021-03-24 03:49] LABS: Calcium 8.8 MG/DL (8.5-10.1); Osmolality,Calculated 292.1 MOS/KG (273-304); Potassium 3.6 MMOL/L (3.5-5.1)
[2021-03-24] MEDS: DILTIAZEM 30 MG TABLET PO SCH ×3 (06:10→17:08)
[2021-03-24] MEDS ORDERED: MAGNESIUM HYDROXIDE SUSP 30 ML UDCUP PO PRN (07:18)
[2021-03-24] MEDS: ARFORMOTEROL 15 MCG/2 ML NEB RESP TX SCH ×2 (07:25→18:10)
[2021-03-24] MEDS ORDERED: TUBERCULIN SKIN TEST 0.1 ML SYRINGE INTRADERM ONE (09:06)
[2021-03-24 10:03] LABS: ABG HCO3 32.2 MMOL/L (20-26); ABG Oxygen Saturation 95.2 % (95-100); ABG PCO2 43.3 MM HG (35-48); ABG PH 7.489 (7.35-7.45); ABG TCO2 33.5 MMOL/L (23-27); Allen Test Positive
[2021-03-24] MEDS: CHOLECALCIFEROL 1,000 UNIT TABLET PO SCH (10:14)
[2021-03-24] MEDS: FUROSEMIDE 20 MG TABLET PO SCH (10:14)
[2021-03-24] MEDS: TAMSULOSIN 0.4 MG CAPSULE PO SCH ×2 (10:14→20:36)
[2021-03-24] MEDS: POLYETHYLENE GLYCOL POWDER 17 GM PACK PO SCH (10:15)
[2021-03-24] MEDS: APIXABAN 5 MG TABLET PO SCH ×2 (10:15→20:35)
[2021-03-24] MEDS: amLODIPine 5 MG TABLET PO SCH (10:15)
[2021-03-24] MEDS: predniSONE 20 MG TABLET PO SCH (10:15)
[2021-03-24] MEDS: GABAPENTIN 100 MG CAPSULE PO SCH (10:15)
[2021-03-24] MEDS: PANTOPRAZOLE 40 MG TABLET PO SCH (10:15)
[2021-03-24] MEDS: guaiFENesin/DM ER 600-30 MG TABLET PO PRN (15:57)
[2021-03-25] MEDS: DILTIAZEM 30 MG TABLET PO SCH ×3 (01:00→12:11)
[2021-03-25] MEDS: ARFORMOTEROL 15 MCG/2 ML NEB RESP TX SCH (07:09)
[2021-03-25] MEDS: predniSONE 20 MG TABLET PO SCH (09:23)
[2021-03-25] MEDS: CHOLECALCIFEROL 1,000 UNIT TABLET PO SCH (09:23)
[2021-03-25] MEDS: PANTOPRAZOLE 40 MG TABLET PO SCH (09:23)
[2021-03-25] MEDS: amLODIPine 5 MG TABLET PO SCH (09:23)
[2021-03-25] MEDS: APIXABAN 5 MG TABLET PO SCH (09:23)
[2021-03-25] MEDS: GABAPENTIN 100 MG CAPSULE PO SCH (09:23)
[2021-03-25] MEDS: TAMSULOSIN 0.4 MG CAPSULE PO SCH (09:24)
[2021-03-25 09:25] LABS: Calcium 8.9 MG/DL (8.5-10.1)
[2021-03-25 09:28] LABS: Potassium 3.8 MMOL/L (3.5-5.1)
[2021-03-25 12:12] VITALS: BP 130/58
[2021-03-25] MEDS: ALBUTEROL 2.5 MG/3 ML NEB RESP TX PRN (14:46)
== END 2021-03-25 15:35 | disposition home health service (06) | DRG 208 ==
LOC: EDUNIT# → EDBD → N.ED 22:30 → N.EDINP 03-17 01:50 → SUATTDRO 03-17 01:50 → N.ICU 03-17 02:37
PROVIDERS: ADMIT Internal Medicine; ATTEND Internal Medicine

== ENCOUNTER 2021-06-01 15:55 | Inpatient (IN) ==
[2021-06-01] MEDS ORDERED: FUROSEMIDE 40 MG/4 ML VIAL IV STA (16:43)
[2021-06-01] MEDS ORDERED: methylPREDNISolone SOD SUC 125 MG/2 ML VIAL IV STA (16:43)
[2021-06-01 16:58] LABS: Basophils % 0.1 % (0.0-0.8); Eosinophils % 0.1 % (0.00-10.9); Hemoglobin 7.3 GM/DL (14.0-18.0); Immature Granulocytes % 0.7 %; Lymphocytes # 0.5 10*3/uL (1.4-4.0); Lymphocytes % 3.2 % (21.2-54.2); Mean Corpuscular HGB Conc 29.2 GM/DL (32-36); Mean Corpuscular Volume 73.7 FL (87-102); Monocytes % 2.3 % (1.7-12.7); Neutrophils % 93.6 % (38.7-73.9); Platelet Count 347 T/CUMM (130-400); Red Blood Count 3.39 MC/CUMM (3.8-5.5); Red Cell Distribution Width 20.2 % (9.3-17.3); White Blood Count 14.6 T/CUMM (4-12)
[2021-06-01] MEDS ORDERED: ALBUTEROL NEB SOLN 5 MG/ML 20 ML/BOTTLE CONT NEB SCH (17:00)
[2021-06-01 17:09] LABS: INR 1.1
[2021-06-01 17:21] LABS: Bilirubin,Total 0.4 MG/DL (0.20-1.00); Calcium 9.2 MG/DL (8.5-10.1); Osmolality,Calculated 283.5 MOS/KG (273-304); Potassium 4.1 MMOL/L (3.5-5.1); Total Protein 7.7 G/DL (6.4-8.2)
[2021-06-01 17:22] LABS: ABG Base Excess 5.8 MMOL/L (-2.5-2.5); ABG HCO3 29.7 MMOL/L (20-26); ABG Oxygen Saturation 98.2 % (95-100); ABG PCO2 47.3 MM HG (35-48); ABG PH 7.423 (7.35-7.45); ABG TCO2 29.2 MMOL/L (23-27)
[2021-06-01 17:22] LABS: Anisocytosis 2+; Lymphocytes 3 % (20-55); Segmented Neutrophils 96 % (50-85); Total Cells Counted 100
[2021-06-01 17:23] LABS: Elliptocytes Few; Macrocytosis Slight; Microcytosis 2+; Platelet Estimate Normal; Poikilocytosis 2+; Polychromasia 1+; Schistocytes 2+
[2021-06-01] MEDS ORDERED: ALBUTEROL 2.5 MG/3 ML NEB RESP TX PRN (19:09)
[2021-06-01] MEDS ORDERED: GLUCAGON 1 MG VIAL IM PRN (19:14)
[2021-06-01] MEDS ORDERED: DEXTROSE 50% 25 GM/50 ML VIAL IV PRN (19:14)
[2021-06-01] MEDS ORDERED: ONDANSETRON 4 MG/2 ML VIAL IV PRN (19:14)
[2021-06-01] MEDS ORDERED: APIXABAN 5 MG TABLET PO SCH (21:00)
[2021-06-01] MEDS: PREGABALIN 100 MG CAPSULE PO SCH (21:51)
[2021-06-01] MEDS: MONTELUKAST 10 MG TABLET PO SCH (21:52)
[2021-06-01] MEDS: LEVOFLOXACIN INJ 500 MG/100 ML PREMIX IV SCH (21:53)
[2021-06-01] MEDS: methylPREDNISolone SOD SUC 40 MG/1 ML VIAL IV SCH (21:53)
[2021-06-01] MEDS: ALBUTEROL/IPRATROPIUM 3 ML NEB RESP TX SCH (23:35)
[2021-06-02] MEDS: ALBUTEROL/IPRATROPIUM 3 ML NEB RESP TX SCH ×5 (03:25→20:35)
[2021-06-02] MEDS: methylPREDNISolone SOD SUC 40 MG/1 ML VIAL IV SCH ×3 (03:28→20:40)
[2021-06-02 06:22] LABS: Basophils % 0.1 % (0.0-0.8); Hematocrit 21.6 VOL% (42.0-52.0); Immature Granulocytes % 0.8 %; Lymphocytes # 0.3 10*3/uL (1.4-4.0); Lymphocytes % 2.4 % (21.2-54.2); Mean Corpuscular HGB Conc 28.2 GM/DL (32-36); Mean Corpuscular Volume 74.5 FL (87-102); Monocytes % 1.5 % (1.7-12.7); Neutrophils % 95.2 % (38.7-73.9); Platelet Count 292 T/CUMM (130-400); Red Cell Distribution Width 20.4 % (9.3-17.3); White Blood Count 13.2 T/CUMM (4-12)
[2021-06-02 06:30] LABS: Hemoglobin 6.1 GM/DL (14.0-18.0)
[2021-06-02] MEDS ORDERED: SODIUM CHLORIDE 0.9% 1,000 ML IV PRN (06:36)
[2021-06-02 06:43] LABS: Albumin 2.5 G/DL (3.4-5.0); Bilirubin,Total 0.4 MG/DL (0.20-1.00); Calcium 8.8 MG/DL (8.5-10.1); Osmolality,Calculated 282.5 MOS/KG (273-304); Potassium 3.7 MMOL/L (3.5-5.1); Total Protein 6.4 G/DL (6.4-8.2)
[2021-06-02 06:44] LABS: Hypochromasia 1+; Lymphocytes 3 % (20-55); Microcytosis 1+; Ovalocytes Slight; Platelet Estimate Adequate; Segmented Neutrophils 96 % (50-85); Total Cells Counted 100
[2021-06-02 06:44] LABS: % Iron Saturation 3.6 % (18-50); Ferritin 26.2 ng/ml (26-388)
[2021-06-02 07:01] LABS: Folate 12.39 NG/ML (5.38-24.0); Vitamin B12 408 PG/ML (211-911)
[2021-06-02 07:19] LABS: Sedimentation Rate-Westergren 85 MM/HR (0-20)
[2021-06-02] MEDS: PREGABALIN 100 MG CAPSULE PO SCH ×2 (08:46→20:40)
[2021-06-02] MEDS: FUROSEMIDE 40 MG TABLET PO SCH (08:47)
[2021-06-02] MEDS: PANTOPRAZOLE 40 MG TABLET PO SCH (08:48)
[2021-06-02] MEDS: FERROUS SULFATE 325 MG TABLET PO SCH (08:53)
[2021-06-02] MEDS: DILTIAZEM CD 120 MG CAPSULE PO SCH (08:54)
[2021-06-02 09:57] LABS: Basophils % 0.1 % (0.0-0.8); Hematocrit 22.6 VOL% (42.0-52.0); Immature Granulocytes % 0.8 %; Immature Granulocytes Absolute 0.12 #; Lymphocytes # 0.3 10*3/uL (1.4-4.0); Lymphocytes % 2.1 % (21.2-54.2); Mean Corpuscular HGB Conc 28.3 GM/DL (32-36); Mean Corpuscular Volume 74.3 FL (87-102); Mean Platelet Volume 12.8 FL (9.6-12.0); Monocytes % 2.1 % (1.7-12.7); NRBC # 0.02 10*3/uL; Neutrophils % 94.9 % (38.7-73.9); Platelet Count 302 T/CUMM (130-400); Red Blood Count 3.04 MC/CUMM (3.8-5.5); Red Cell Distribution Width 20.4 % (9.3-17.3); White Blood Count 15.1 T/CUMM (4-12)
[2021-06-02 09:59] LABS: Hemoglobin 6.4 GM/DL (14.0-18.0)
[2021-06-02 10:15] LABS: Hypochromasia 1+; Lymphocytes 3 % (20-55); Segmented Neutrophils 96 % (50-85); Total Cells Counted 100
[2021-06-02 10:16] LABS: Microcytosis 1+; Ovalocytes Few; Platelet Estimate Normal
[2021-06-02 19:33] LABS: Hematocrit 28.4 VOL% (42.0-52.0); Hemoglobin 8.5 GM/DL (14.0-18.0)
[2021-06-02] MEDS: MONTELUKAST 10 MG TABLET PO SCH (20:41)
[2021-06-02] MEDS: LEVOFLOXACIN INJ 500 MG/100 ML PREMIX IV SCH (22:57)
[2021-06-03] MEDS: ALBUTEROL/IPRATROPIUM 3 ML NEB RESP TX SCH ×7 (00:02→23:51)
[2021-06-03] MEDS: methylPREDNISolone SOD SUC 40 MG/1 ML VIAL IV SCH ×3 (04:39→21:08)
[2021-06-03 06:09] LABS: Basophils % 0.1 % (0.0-0.8); Hematocrit 29.2 VOL% (42.0-52.0); Hemoglobin 8.8 GM/DL (14.0-18.0); Immature Granulocytes % 0.6 %; Immature Granulocytes Absolute 0.09 #; Lymphocytes # 0.5 10*3/uL (1.4-4.0); Lymphocytes % 3.2 % (21.2-54.2); Mean Corpuscular HGB Conc 30.1 GM/DL (32-36); Mean Corpuscular Volume 76.8 FL (87-102); Monocytes % 5.7 % (1.7-12.7); Neutrophils % 90.4 % (38.7-73.9); Platelet Count 284 T/CUMM (130-400); Red Cell Distribution Width 21.2 % (9.3-17.3); White Blood Count 15.9 T/CUMM (4-12)
[2021-06-03 06:36] LABS: Calcium 8.9 MG/DL (8.5-10.1); Hypochromasia 1+; Lymphocytes 4 % (20-55); Microcytosis 1+; Nucleated Red Blood Cells 1 (0-5); Osmolality,Calculated 286.1 MOS/KG (273-304); Platelet Estimate Adequate; Potassium 3.7 MMOL/L (3.5-5.1); Segmented Neutrophils 92 % (50-85); Total Cells Counted 100
[2021-06-03] MEDS: PREGABALIN 100 MG CAPSULE PO SCH ×2 (10:34→21:07)
[2021-06-03] MEDS: PANTOPRAZOLE 40 MG TABLET PO SCH (10:34)
[2021-06-03] MEDS: FERROUS SULFATE 325 MG TABLET PO SCH (10:34)
[2021-06-03] MEDS: DILTIAZEM CD 120 MG CAPSULE PO SCH (10:35)
[2021-06-03] MEDS: FUROSEMIDE 40 MG TABLET PO SCH (10:35)
[2021-06-03] MEDS: MONTELUKAST 10 MG TABLET PO SCH (21:07)
[2021-06-03] MEDS: LEVOFLOXACIN INJ 500 MG/100 ML PREMIX IV SCH (21:09)
[2021-06-03] MEDS: MAGNESIUM HYDROXIDE SUSP 30 ML UDCUP PO PRN (21:23)
[2021-06-04] MEDS: ALBUTEROL/IPRATROPIUM 3 ML NEB RESP TX SCH ×5 (03:09→19:43)
[2021-06-04] MEDS: methylPREDNISolone SOD SUC 40 MG/1 ML VIAL IV SCH ×3 (04:10→20:21)
[2021-06-04 07:26] LABS: Basophils % 0.1 % (0.0-0.8); Hematocrit 30.7 VOL% (42.0-52.0); Hemoglobin 9.5 GM/DL (14.0-18.0); Immature Granulocytes % 0.6 %; Immature Granulocytes Absolute 0.08 #; Lymphocytes # 0.3 10*3/uL (1.4-4.0); Lymphocytes % 2.4 % (21.2-54.2); Mean Corpuscular HGB Conc 30.9 GM/DL (32-36); Mean Corpuscular Volume 76.9 FL (87-102); Monocytes % 3.4 % (1.7-12.7); Neutrophils % 93.5 % (38.7-73.9); Platelet Count 269 T/CUMM (130-400); Red Blood Count 3.99 MC/CUMM (3.8-5.5); Red Cell Distribution Width 21.8 % (9.3-17.3); White Blood Count 13.4 T/CUMM (4-12)
[2021-06-04 07:51] LABS: Calcium 9.3 MG/DL (8.5-10.1); Osmolality,Calculated 283.4 MOS/KG (273-304); Potassium 3.7 MMOL/L (3.5-5.1)
[2021-06-04] MEDS: DILTIAZEM CD 120 MG CAPSULE PO SCH (08:57)
[2021-06-04] MEDS: FERROUS SULFATE 325 MG TABLET PO SCH (08:57)
[2021-06-04] MEDS: PANTOPRAZOLE 40 MG TABLET PO SCH (08:57)
[2021-06-04] MEDS: FUROSEMIDE 40 MG TABLET PO SCH (08:57)
[2021-06-04] MEDS: PREGABALIN 100 MG CAPSULE PO SCH ×2 (08:57→20:22)
[2021-06-04 10:01] LABS: Hypochromasia 4+; Segmented Neutrophils 97 % (50-85); Total Cells Counted 100
[2021-06-04 10:02] LABS: Elliptocytes Few; Microcytosis 3+; Ovalocytes Few; Platelet Estimate Normal; Schistocytes Slight; Tear Drop Cells Few
[2021-06-04] MEDS: MAGNESIUM HYDROXIDE SUSP 30 ML UDCUP PO PRN (12:38)
[2021-06-04] MEDS: MONTELUKAST 10 MG TABLET PO SCH (20:22)
[2021-06-04] MEDS: LEVOFLOXACIN INJ 500 MG/100 ML PREMIX IV SCH (20:48)
[2021-06-05] MEDS: ALBUTEROL/IPRATROPIUM 3 ML NEB RESP TX SCH ×6 (00:17→20:08)
[2021-06-05] MEDS: MAGNESIUM HYDROXIDE SUSP 30 ML UDCUP PO PRN (03:23)
[2021-06-05 07:38] LABS: Basophils % 0.1 % (0.0-0.8); Hematocrit 36.8 VOL% (42.0-52.0); Hemoglobin 11.1 GM/DL (14.0-18.0); Immature Granulocytes % 0.5 %; Immature Granulocytes Absolute 0.07 #; Lymphocytes # 0.3 10*3/uL (1.4-4.0); Lymphocytes % 2.1 % (21.2-54.2); Mean Corpuscular HGB Conc 30.2 GM/DL (32-36); Mean Corpuscular Volume 77.6 FL (87-102); Monocytes % 3.8 % (1.7-12.7); Neutrophils % 93.5 % (38.7-73.9); Platelet Count 144 T/CUMM (130-400); Red Blood Count 4.74 MC/CUMM (3.8-5.5); Red Cell Distribution Width 21.7 % (9.3-17.3); White Blood Count 15.1 T/CUMM (4-12)
[2021-06-05] MEDS: PANTOPRAZOLE 40 MG TABLET PO SCH (09:10)
[2021-06-05] MEDS: FERROUS SULFATE 325 MG TABLET PO SCH (09:10)
[2021-06-05] MEDS: PREGABALIN 100 MG CAPSULE PO SCH ×2 (09:16→21:02)
[2021-06-05] MEDS: FUROSEMIDE 40 MG TABLET PO SCH (09:16)
[2021-06-05] MEDS: DILTIAZEM CD 120 MG CAPSULE PO SCH (09:16)
[2021-06-05] MEDS: methylPREDNISolone SOD SUC 40 MG/1 ML VIAL IV SCH ×2 (09:17→21:02)
[2021-06-05 10:31] LABS: Total Protein 6.6 G/DL (6.4-8.2)
[2021-06-05 10:36] LABS: Basophils % 0.1 % (0.0-0.8); Hematocrit 35.5 VOL% (42.0-52.0); Hemoglobin 10.4 GM/DL (14.0-18.0); Immature Granulocytes % 0.6 %; Lymphocytes # 0.3 10*3/uL (1.4-4.0); Lymphocytes % 1.9 % (21.2-54.2); Mean Corpuscular HGB Conc 29.3 GM/DL (32-36); Mean Corpuscular Volume 79.2 FL (87-102); Monocytes % 4.4 % (1.7-12.7); NRBC # 0.02 10*3/uL; Platelet Count 336 T/CUMM (130-400); Red Blood Count 4.48 MC/CUMM (3.8-5.5); Red Cell Distribution Width 22.3 % (9.3-17.3); White Blood Count 16.2 T/CUMM (4-12)
[2021-06-05 10:43] LABS: Calcium 9.2 MG/DL (8.5-10.1)
[2021-06-05 10:44] LABS: Albumin 2.7 G/DL (3.4-5.0); Osmolality,Calculated 288.1 MOS/KG (273-304)
[2021-06-05 10:49] LABS: Bilirubin,Total 0.4 MG/DL (0.20-1.00)
[2021-06-05 11:58] LABS: Elliptocytes Few; Hypochromasia 4+; Lymphocytes 3 % (20-55); Microcytosis 3+; Ovalocytes 1+; Platelet Estimate Adequate; Schistocytes Slight; Segmented Neutrophils 95 % (50-85); Target Cells Slight; Total Cells Counted 100
[2021-06-05 12:00] LABS: Lymphocytes 3 % (20-55); Segmented Neutrophils 96 % (50-85); Total Cells Counted 100
[2021-06-05 12:01] LABS: Elliptocytes Few; Hypochromasia 4+; Ovalocytes 1+; Platelet Estimate Normal; Schistocytes Slight; Target Cells Slight
[2021-06-05] MEDS: MONTELUKAST 10 MG TABLET PO SCH (21:02)
[2021-06-05] MEDS: LEVOFLOXACIN INJ 500 MG/100 ML PREMIX IV SCH (21:03)
[2021-06-06] MEDS: ALBUTEROL/IPRATROPIUM 3 ML NEB RESP TX SCH ×4 (00:14→11:22)
[2021-06-06 06:20] LABS: Basophils % 0.1 % (0.0-0.8); Hematocrit 34.7 VOL% (42.0-52.0); Hemoglobin 10.2 GM/DL (14.0-18.0); Immature Granulocytes % 0.9 %; Immature Granulocytes Absolute 0.09 #; Lymphocytes # 0.2 10*3/uL (1.4-4.0); Lymphocytes % 2.3 % (21.2-54.2); Mean Corpuscular HGB Conc 29.4 GM/DL (32-36); Mean Corpuscular Volume 79.6 FL (87-102); Monocytes % 3.7 % (1.7-12.7); Platelet Count 201 T/CUMM (130-400); Red Blood Count 4.36 MC/CUMM (3.8-5.5); White Blood Count 10.2 T/CUMM (4-12)
[2021-06-06 06:29] LABS: Calcium 9.2 MG/DL (8.5-10.1); Osmolality,Calculated 283.5 MOS/KG (273-304); Potassium 4.4 MMOL/L (3.5-5.1)
[2021-06-06 06:44] LABS: Hypochromasia 1+; Lymphocytes 2 % (20-55); Microcytosis 1+; Ovalocytes Slight; Platelet Estimate Adequate; Segmented Neutrophils 90 % (50-85); Total Cells Counted 100
[2021-06-06 06:45] LABS: Schistocytes Slight
[2021-06-06] MEDS ORDERED: LACTATED RINGERS 1,000 ML IV SCH (07:02)
[2021-06-06] MEDS ORDERED: FAMOTIDINE 20 MG/2 ML VIAL IV ONE (07:41)
[2021-06-06] MEDS ORDERED: LIDOCAINE 2% 5 ML VIAL ONE (08:22)
[2021-06-06] MEDS ORDERED: propofoL 200 MG/20 ML VIAL IV ONE (08:22)
[2021-06-06] MEDS ORDERED: ETOMIDATE 20 MG/10 ML VIAL IV ONE (08:30)
[2021-06-06] MEDS: FUROSEMIDE 40 MG TABLET PO SCH (09:52)
[2021-06-06] MEDS: FERROUS SULFATE 325 MG TABLET PO SCH (09:52)
[2021-06-06] MEDS: PANTOPRAZOLE 40 MG TABLET PO SCH (09:52)
[2021-06-06] MEDS: PREGABALIN 100 MG CAPSULE PO SCH (09:52)
[2021-06-06] MEDS: DILTIAZEM CD 120 MG CAPSULE PO SCH (09:52)
[2021-06-06] MEDS: methylPREDNISolone SOD SUC 40 MG/1 ML VIAL IV SCH (09:53)
[2021-06-06] MEDS ORDERED: FLUCONAZOLE 100 MG TABLET PO SCH (11:00)
[2021-06-06 11:54] VITALS: BP 115/67
[2021-06-06] MEDS ORDERED: CEFUROXIME 500 MG TABLET PO SCH (21:00)
== END 2021-06-06 15:46 | disposition home or self-care (01) | DRG 191 ==
LOC: N.ED 15:55 → N.EDINP 15:55 → N.5E 20:20
PROVIDERS: ADMIT Internal Medicine; ATTEND Internal Medicine

== ENCOUNTER 2021-09-25 03:10 | Inpatient (IN) ==
[2021-09-25] MEDS ORDERED: SODIUM CHLORIDE 0.9% 1,000 ML IV STA (03:31)
[2021-09-25] MEDS ORDERED: ALBUTEROL/IPRATROPIUM 3 ML NEB RESP TX STA (03:48)
[2021-09-25] MEDS ORDERED: methylPREDNISolone SOD SUC 125 MG/2 ML VIAL IV STA (03:48)
[2021-09-25 04:31] LABS: ABG Base Excess 5.4 MMOL/L (-2.5-2.5); ABG HCO3 29.2 MMOL/L (20-26); ABG PH 7.216 (7.35-7.45); ABG PO2 73.2 MM HG (80-95); ABG TCO2 33.8 MMOL/L (23-27)
[2021-09-25 04:36] LABS: ABG PCO2 87.7 MM HG (35-48)
[2021-09-25 05:53] LABS: Basophils % 0.1 % (0.0-0.8); Hematocrit 25.1 VOL% (42.0-52.0); Hemoglobin 7.4 GM/DL (14.0-18.0); Immature Granulocytes % 0.6 %; Immature Granulocytes Absolute 0.16 #; Lymphocytes # 0.4 10*3/uL (1.4-4.0); Lymphocytes % 1.7 % (21.2-54.2); Mean Corpuscular HGB Conc 29.5 GM/DL (32-36); Mean Platelet Volume 12.2 FL (9.6-12.0); Monocytes % 9.6 % (1.7-12.7); Platelet Count 461 T/CUMM (130-400); Red Blood Count 3.26 MC/CUMM (3.8-5.5); Red Cell Distribution Width 20.1 % (9.3-17.3)
[2021-09-25 06:15] LABS: Albumin 3.7 G/DL (3.4-5.0); Bilirubin,Total 0.4 MG/DL (0.20-1.00); Calcium 9.1 MG/DL (8.5-10.1); Osmolality,Calculated 288.8 MOS/KG (273-304); Total Protein 6.6 G/DL (6.4-8.2)
[2021-09-25 06:53] LABS: Band Neutrophils 1 % (0-10); Hypochromasia 2+; Segmented Neutrophils 89 % (50-85); Total Cells Counted 100
[2021-09-25 06:54] LABS: Acanthocytes Few; Anisocytosis 1+; Platelet Estimate Increased
[2021-09-25 07:04] LABS: Bacteria,Urine Few /HPF (Few); Bilirubin,Urine Negative (Negative); Blood, Urine Large mg/dL (Negative); Glucose,Urine (UA) Negative (Negative); Hyaline Casts,Urine 3 /LPF (0-3); Ketones,Urine Negative (Negative); Mucus,Urine Occasional /LPF (Occasional); Nitrite,Urine Positive (Negative); Protein,Urine 100 MG/DL; RBC,Urine 18 /HPF (0-4); Squamous Epithelial Cell,Urine Occasional /HPF (0-10); Urine Appearance CLEAR (Clear); Urine Color Amber (Yellow); Urine Specific Gravity 1.011 (1.001-1.035); Urine Urobilinogen < 2.0 EU/DL (0.2-1.0)
[2021-09-25 07:57] LABS: INR 1.1; PT Patient Result 12.2 SECS (10.5-12.0)
[2021-09-25] MEDS ORDERED: LEVOFLOXACIN INJ 500 MG/100 ML PREMIX IV ONE (08:03)
[2021-09-25 08:40] LABS: ABG Base Excess 8.8 MMOL/L (-2.5-2.5); ABG HCO3 32.5 MMOL/L (20-26); ABG Oxygen Saturation 97.4 % (95-100); ABG PH 7.304 (7.35-7.45); ABG TCO2 35.1 MMOL/L (23-27)
[2021-09-25] MEDS ORDERED: VANCOMYCIN INJ 1,250 MG in SODIUM CHLORIDE 0.9% 250 ML IV ONE (08:49)
[2021-09-25] MEDS ORDERED: DEXTROSE 50% 25 GM/50 ML VIAL IV PRN (09:06)
[2021-09-25] MEDS ORDERED: GLUCAGON 1 MG VIAL IM PRN (09:06)
[2021-09-25] MEDS ORDERED: ONDANSETRON 4 MG/2 ML VIAL IV PRN (09:06)
[2021-09-25] MEDS: MEROPENEM 500 MG in SODIUM CHLORIDE 0.9% 100 ML IV SCH ×2 (09:07→18:44)
[2021-09-25] MEDS: LACTATED RINGERS 1,000 ML IV SCH ×2 (09:07→18:43)
[2021-09-25] MEDS: VANCOMYCIN INJ 1,000 MG in SODIUM CHLORIDE 0.9% 250 ML IV SCH (10:21)
[2021-09-25 10:23] LABS: ABG HCO3 33.6 MMOL/L (20-26); ABG Oxygen Saturation 90.6 % (95-100); ABG PCO2 67.5 MM HG (35-48); ABG PH 7.349 (7.35-7.45); ABG PO2 66.5 MM HG (80-95); ABG TCO2 35.5 MMOL/L (23-27)
[2021-09-25] MEDS ORDERED: SODIUM CHLORIDE 0.9% 1,000 ML IV ONE (11:42)
[2021-09-25] MEDS: ALBUTEROL/IPRATROPIUM 3 ML NEB RESP TX SCH ×2 (12:30→19:10)
[2021-09-25] MEDS: PANTOPRAZOLE 40 MG VIAL IV SCH (12:35)
[2021-09-25] MEDS: methylPREDNISolone SOD SUC 40 MG/1 ML VIAL IV SCH ×2 (12:35→20:17)
[2021-09-25 14:18] LABS: ABG HCO3 31.8 MMOL/L (20-26); ABG PCO2 66.4 MM HG (35-48); ABG PH 7.332 (7.35-7.45); ABG TCO2 33.7 MMOL/L (23-27)
[2021-09-25] MEDS: METOPROLOL TARTRATE 25 MG TABLET PO SCH ×2 (16:24→20:20)
[2021-09-25] MEDS: ASPIRIN EC 81 MG TABLET PO SCH (16:24)
[2021-09-25] MEDS: ROSUVASTATIN 20 MG TABLET PO SCH (20:20)
[2021-09-26] MEDS: ALBUTEROL/IPRATROPIUM 3 ML NEB RESP TX SCH ×4 (00:58→18:17)
[2021-09-26] MEDS: MEROPENEM 500 MG in SODIUM CHLORIDE 0.9% 100 ML IV SCH ×4 (01:34→20:54)
[2021-09-26] MEDS: LACTATED RINGERS 1,000 ML IV SCH ×2 (03:17→10:55)
[2021-09-26] MEDS: methylPREDNISolone SOD SUC 40 MG/1 ML VIAL IV SCH ×3 (03:48→20:50)
[2021-09-26] MEDS: VANCOMYCIN INJ 1,000 MG in SODIUM CHLORIDE 0.9% 250 ML IV SCH (03:50)
[2021-09-26 04:13] LABS: ABG Base Excess 8.4 MMOL/L (-2.5-2.5); ABG HCO3 32.1 MMOL/L (20-26); ABG Oxygen Saturation 98.4 % (95-100); ABG PCO2 59.5 MM HG (35-48); ABG PH 7.374 (7.35-7.45); ABG TCO2 33.2 MMOL/L (23-27); Allen Test Positive; Pt O2 Delivery Device BIPAP
[2021-09-26 07:52] LABS: Basophils % 0.1 % (0.0-0.8); Hematocrit 22.6 VOL% (42.0-52.0); Immature Granulocytes % 0.8 %; Lymphocytes # 0.4 10*3/uL (1.4-4.0); Lymphocytes % 3.2 % (21.2-54.2); Mean Corpuscular HGB Conc 27.9 GM/DL (32-36); Mean Corpuscular Volume 75.6 FL (87-102); Mean Platelet Volume 11.1 FL (9.6-12.0); Monocytes % 6.2 % (1.7-12.7); NRBC # 0.03 10*3/uL; Neutrophils % 89.7 % (38.7-73.9); Platelet Count 307 T/CUMM (130-400); Red Blood Count 2.99 MC/CUMM (3.8-5.5); Red Cell Distribution Width 20.4 % (9.3-17.3); White Blood Count 13.1 T/CUMM (4-12)
[2021-09-26 07:55] LABS: Hemoglobin 6.3 GM/DL (14.0-18.0)
[2021-09-26 08:11] LABS: Band Neutrophils 6 % (0-10); Lymphocytes 3 % (20-55); Nucleated Red Blood Cells 2 (0-5); Platelet Estimate Normal; Segmented Neutrophils 87 % (50-85); Total Cells Counted 100
[2021-09-26 08:12] LABS: Anisocytosis 1+; Giant Platelets Few; Hypochromasia 2+; Ovalocytes 1+; Tear Drop Cells Few
[2021-09-26 08:17] LABS: % Iron Saturation 2.4 % (18-50); Calcium 8.9 MG/DL (8.5-10.1); Ferritin 11.5 ng/mL (26-388); Osmolality,Calculated 289.1 MOS/KG (273-304); Potassium 4.3 MMOL/L (3.5-5.1)
[2021-09-26] MEDS ORDERED: SODIUM CHLORIDE 0.9% 1,000 ML IV PRN (08:40)
[2021-09-26] MEDS: PANTOPRAZOLE 40 MG VIAL IV SCH (08:44)
[2021-09-26] MEDS: ASPIRIN EC 81 MG TABLET PO SCH (08:45)
[2021-09-26] MEDS: METOPROLOL TARTRATE 25 MG TABLET PO SCH ×2 (08:45→20:53)
[2021-09-26] MEDS ORDERED: METOPROLOL TARTRATE 25 MG TABLET PO ONE (13:13)
[2021-09-26 18:37] LABS: Hematocrit 30.5 VOL% (42.0-52.0); Hemoglobin 8.9 GM/DL (14.0-18.0)
[2021-09-26] MEDS: ROSUVASTATIN 20 MG TABLET PO SCH (20:53)
[2021-09-26] MEDS: hydrALAZINE 20 MG/1 ML VIAL IV PRN (23:14)
[2021-09-27] MEDS: LACTATED RINGERS 1,000 ML IV SCH ×3 (00:24→16:05)
[2021-09-27] MEDS: ALBUTEROL/IPRATROPIUM 3 ML NEB RESP TX SCH ×4 (00:47→18:04)
[2021-09-27] MEDS: MEROPENEM 500 MG in SODIUM CHLORIDE 0.9% 100 ML IV SCH ×2 (03:49→08:29)
[2021-09-27] MEDS: methylPREDNISolone SOD SUC 40 MG/1 ML VIAL IV SCH ×3 (03:51→20:43)
[2021-09-27 06:47] LABS: Albumin 2.7 G/DL (3.4-5.0); Calcium 9.4 MG/DL (8.5-10.1); Osmolality,Calculated 287.3 MOS/KG (273-304); Potassium 4.5 MMOL/L (3.5-5.1)
[2021-09-27 06:52] LABS: High Sensitive Troponin I* 135.9 ng/L (0-78)
[2021-09-27 06:56] LABS: Basophils % 0.1 % (0.0-0.8); Hematocrit 32.4 VOL% (42.0-52.0); Hemoglobin 9.7 GM/DL (14.0-18.0); Immature Granulocytes Absolute 0.12 #; Lymphocytes # 0.4 10*3/uL (1.4-4.0); Mean Corpuscular HGB Conc 29.9 GM/DL (32-36); Mean Corpuscular Volume 74.5 FL (87-102); Monocytes % 4.7 % (1.7-12.7); NRBC # 0.06 10*3/uL; Neutrophils % 91.2 % (38.7-73.9); Platelet Count 291 T/CUMM (130-400); Red Blood Count 4.35 MC/CUMM (3.8-5.5); Red Cell Distribution Width 19.9 % (9.3-17.3); White Blood Count 12.5 T/CUMM (4-12)
[2021-09-27 07:02] LABS: Hypochromasia 1+; Lymphocytes 3 % (20-55); Microcytosis 1+; Nucleated Red Blood Cells 1 (0-5); Platelet Estimate Adequate; Segmented Neutrophils 95 % (50-85); Total Cells Counted 100
[2021-09-27] MEDS: hydrALAZINE 20 MG/1 ML VIAL IV PRN (07:38)
[2021-09-27] MEDS: PANTOPRAZOLE 40 MG VIAL IV SCH (08:29)
[2021-09-27] MEDS: ASPIRIN EC 81 MG TABLET PO SCH (08:30)
[2021-09-27] MEDS: METOPROLOL TARTRATE 25 MG TABLET PO SCH ×2 (08:30→20:46)
[2021-09-27] MEDS ORDERED: cloNIDine 0.1 MG TABLET PO PRN (08:39)
[2021-09-27] MEDS ORDERED: ARFORMOTEROL 15 MCG/2 ML INH SCH (09:00)
[2021-09-27] MEDS: FUROSEMIDE 40 MG TABLET PO SCH (09:47)
[2021-09-27] MEDS: POLYETHYLENE GLYCOL POWDER 17 GM PACK PO SCH (09:47)
[2021-09-27] MEDS: APIXABAN 5 MG TABLET PO SCH ×2 (09:47→20:46)
[2021-09-27] MEDS: SERTRALINE 100 MG TABLET PO SCH (09:47)
[2021-09-27] MEDS: BUDESONIDE 0.25 MG/2 ML NEB RESP TX SCH (09:47)
[2021-09-27] MEDS: TAMSULOSIN 0.4 MG CAPSULE PO SCH ×2 (09:47→20:46)
[2021-09-27] MEDS: VANCOMYCIN INJ 1,000 MG in SODIUM CHLORIDE 0.9% 250 ML IV SCH (12:36)
[2021-09-27] MEDS: ROSUVASTATIN 20 MG TABLET PO SCH (20:46)
[2021-09-27] MEDS: MELATONIN 3 MG TABLET PO SCH (20:46)
[2021-09-27] MEDS: ARFORMOTEROL 15 MCG/2 ML INH SCH (21:04)
[2021-09-28] MEDS: LACTATED RINGERS 1,000 ML IV SCH ×4 (00:11→20:08)
[2021-09-28] MEDS: ALBUTEROL/IPRATROPIUM 3 ML NEB RESP TX SCH ×4 (00:40→20:00)
[2021-09-28] MEDS: BUDESONIDE 0.25 MG/2 ML NEB RESP TX SCH ×3 (00:40→20:00)
[2021-09-28] MEDS ORDERED: diphenhydrAMINE 25 MG/10 ML UDCUP PO PRN (02:21)
[2021-09-28 03:36] LABS: ABG Base Excess 10.4 MMOL/L (-2.5-2.5); ABG HCO3 35.5 MMOL/L (20-26); ABG Oxygen Saturation 98.7 % (95-100); ABG PCO2 50.9 MM HG (35-48); ABG PH 7.461 (7.35-7.45); ABG PO2 192.4 MM HG (80-95)
[2021-09-28] MEDS: methylPREDNISolone SOD SUC 40 MG/1 ML VIAL IV SCH ×3 (04:08→20:09)
[2021-09-28 05:39] LABS: Hematocrit 29.8 VOL% (42.0-52.0); Immature Granulocytes % 0.4 %; Immature Granulocytes Absolute 0.03 #; Lymphocytes # 0.3 10*3/uL (1.4-4.0); Lymphocytes % 3.7 % (21.2-54.2); Mean Corpuscular HGB Conc 30.2 GM/DL (32-36); Mean Corpuscular Volume 74.7 FL (87-102); Monocytes % 6.4 % (1.7-12.7); NRBC # 0.02 10*3/uL; Neutrophils % 89.5 % (38.7-73.9); Platelet Count 339 T/CUMM (130-400); Red Blood Count 3.99 MC/CUMM (3.8-5.5); White Blood Count 7.5 T/CUMM (4-12)
[2021-09-28] MEDS: VANCOMYCIN INJ 1,000 MG in SODIUM CHLORIDE 0.9% 250 ML IV SCH (05:43)
[2021-09-28 06:00] LABS: Osmolality,Calculated 284.5 MOS/KG (273-304); Potassium 4.1 MMOL/L (3.5-5.1)
[2021-09-28 06:08] LABS: Hypochromasia 1+; Lymphocytes 2 % (20-55); Microcytosis 1+; Nucleated Red Blood Cells 1 (0-5); Ovalocytes Slight; Platelet Estimate Adequate; Segmented Neutrophils 92 % (50-85); Total Cells Counted 100
[2021-09-28] MEDS: ASPIRIN EC 81 MG TABLET PO SCH (08:39)
[2021-09-28] MEDS: APIXABAN 5 MG TABLET PO SCH ×2 (08:40→20:08)
[2021-09-28] MEDS: SERTRALINE 100 MG TABLET PO SCH (08:40)
[2021-09-28] MEDS: TAMSULOSIN 0.4 MG CAPSULE PO SCH ×2 (08:41→20:08)
[2021-09-28] MEDS: FUROSEMIDE 40 MG TABLET PO SCH (08:41)
[2021-09-28] MEDS: METOPROLOL TARTRATE 25 MG TABLET PO SCH ×2 (08:41→20:08)
[2021-09-28] MEDS: PANTOPRAZOLE 40 MG TABLET PO SCH (08:41)
[2021-09-28] MEDS: predniSONE 20 MG TABLET PO SCH (08:46)
[2021-09-28] MEDS: DUTASTERIDE 0.5 MG CAPSULE PO SCH (08:46)
[2021-09-28] MEDS: rOPINIRole 0.25 MG TABLET PO SCH ×2 (08:46→20:08)
[2021-09-28] MEDS: THEOPHYLLINE ER (24 HR) 400 MG TABLET PO SCH (08:46)
[2021-09-28] MEDS: PREGABALIN 50 MG CAPSULE PO SCH ×2 (11:03→20:08)
[2021-09-28] MEDS: DOCUSATE SODIUM 100 MG CAPSULE PO SCH (20:08)
[2021-09-28] MEDS: BENZONATATE 100 MG CAPSULE PO PRN (20:08)
[2021-09-28] MEDS: MELATONIN 3 MG TABLET PO SCH (20:08)
[2021-09-28] MEDS: ROSUVASTATIN 20 MG TABLET PO SCH (20:08)
[2021-09-28] MEDS: ARFORMOTEROL 15 MCG/2 ML INH SCH (21:05)
[2021-09-29] MEDS: VANCOMYCIN INJ 1,000 MG in SODIUM CHLORIDE 0.9% 250 ML IV SCH ×2 (00:03→20:55)
[2021-09-29] MEDS: ALBUTEROL/IPRATROPIUM 3 ML NEB RESP TX SCH ×4 (01:00→18:59)
[2021-09-29] MEDS: methylPREDNISolone SOD SUC 40 MG/1 ML VIAL IV SCH (04:10)
[2021-09-29 06:27] LABS: Calcium 8.9 MG/DL (8.5-10.1); Osmolality,Calculated 287.3 MOS/KG (273-304); Potassium 3.8 MMOL/L (3.5-5.1)
[2021-09-29] MEDS: BUDESONIDE 0.25 MG/2 ML NEB RESP TX SCH ×2 (07:47→18:59)
[2021-09-29] MEDS: POLYETHYLENE GLYCOL POWDER 17 GM PACK PO SCH (08:40)
[2021-09-29] MEDS: THEOPHYLLINE ER (24 HR) 400 MG TABLET PO SCH (08:40)
[2021-09-29] MEDS: DOCUSATE SODIUM 100 MG CAPSULE PO SCH ×2 (08:41→20:55)
[2021-09-29] MEDS: TAMSULOSIN 0.4 MG CAPSULE PO SCH ×2 (08:41→20:55)
[2021-09-29] MEDS: BENZONATATE 100 MG CAPSULE PO PRN (08:41)
[2021-09-29] MEDS: rOPINIRole 0.25 MG TABLET PO SCH ×2 (08:41→20:57)
[2021-09-29] MEDS: SERTRALINE 100 MG TABLET PO SCH (08:41)
[2021-09-29] MEDS: METOPROLOL TARTRATE 25 MG TABLET PO SCH ×2 (08:42→20:56)
[2021-09-29] MEDS: PANTOPRAZOLE 40 MG TABLET PO SCH (08:42)
[2021-09-29] MEDS: predniSONE 20 MG TABLET PO SCH ×2 (08:42→20:57)
[2021-09-29] MEDS: ASPIRIN EC 81 MG TABLET PO SCH (08:42)
[2021-09-29] MEDS: FUROSEMIDE 40 MG TABLET PO SCH (08:42)
[2021-09-29] MEDS: APIXABAN 5 MG TABLET PO SCH ×2 (08:42→20:55)
[2021-09-29] MEDS: PREGABALIN 50 MG CAPSULE PO SCH ×2 (08:42→20:56)
[2021-09-29] MEDS: DUTASTERIDE 0.5 MG CAPSULE PO SCH (08:42)
[2021-09-29] MEDS: ARFORMOTEROL 15 MCG/2 ML INH SCH ×2 (09:25→23:24)
[2021-09-29] MEDS: ROSUVASTATIN 20 MG TABLET PO SCH (20:55)
[2021-09-29] MEDS: MELATONIN 3 MG TABLET PO SCH (20:56)
[2021-09-30 07:01] LABS: Calcium 8.7 MG/DL (8.5-10.1); Osmolality,Calculated 280.5 MOS/KG (273-304); Potassium 3.8 MMOL/L (3.5-5.1)
[2021-09-30] MEDS: ALBUTEROL/IPRATROPIUM 3 ML NEB RESP TX SCH ×4 (07:52→19:40)
[2021-09-30] MEDS: BUDESONIDE 0.25 MG/2 ML NEB RESP TX SCH ×2 (07:52→19:40)
[2021-09-30] MEDS: DOCUSATE SODIUM 100 MG CAPSULE PO SCH ×2 (09:20→20:28)
[2021-09-30] MEDS: METOPROLOL TARTRATE 25 MG TABLET PO SCH ×2 (09:20→20:28)
[2021-09-30] MEDS: ASPIRIN EC 81 MG TABLET PO SCH (09:20)
[2021-09-30] MEDS: TAMSULOSIN 0.4 MG CAPSULE PO SCH ×2 (09:20→20:29)
[2021-09-30] MEDS: APIXABAN 5 MG TABLET PO SCH ×2 (09:20→20:29)
[2021-09-30] MEDS: rOPINIRole 0.25 MG TABLET PO SCH ×2 (09:21→20:28)
[2021-09-30] MEDS: DUTASTERIDE 0.5 MG CAPSULE PO SCH (09:21)
[2021-09-30] MEDS: FUROSEMIDE 40 MG TABLET PO SCH (09:21)
[2021-09-30] MEDS: THEOPHYLLINE ER (24 HR) 400 MG TABLET PO SCH (09:21)
[2021-09-30] MEDS: PANTOPRAZOLE 40 MG TABLET PO SCH (09:22)
[2021-09-30] MEDS: SERTRALINE 100 MG TABLET PO SCH (09:22)
[2021-09-30] MEDS: PREGABALIN 50 MG CAPSULE PO SCH ×2 (09:22→20:28)
[2021-09-30] MEDS: predniSONE 20 MG TABLET PO SCH ×2 (09:22→20:29)
[2021-09-30] MEDS: ARFORMOTEROL 15 MCG/2 ML INH SCH (10:25)
[2021-09-30] MEDS: VANCOMYCIN INJ 1,000 MG in SODIUM CHLORIDE 0.9% 250 ML IV SCH (12:10)
[2021-09-30] MEDS: ROSUVASTATIN 20 MG TABLET PO SCH (20:28)
[2021-09-30] MEDS: MELATONIN 3 MG TABLET PO SCH (20:28)
[2021-10-01] MEDS: ALBUTEROL/IPRATROPIUM 3 ML NEB RESP TX SCH ×4 (00:27→20:00)
[2021-10-01] MEDS: VANCOMYCIN INJ 1,000 MG in SODIUM CHLORIDE 0.9% 250 ML IV SCH (06:31)
[2021-10-01 06:37] LABS: Calcium 8.7 MG/DL (8.5-10.1); Osmolality,Calculated 278.5 MOS/KG (273-304); Potassium 3.2 MMOL/L (3.5-5.1)
[2021-10-01] MEDS: BUDESONIDE 0.25 MG/2 ML NEB RESP TX SCH ×2 (07:32→20:00)
[2021-10-01] MEDS: PREGABALIN 50 MG CAPSULE PO SCH ×2 (09:08→21:16)
[2021-10-01] MEDS: DOCUSATE SODIUM 100 MG CAPSULE PO SCH ×2 (09:08→21:15)
[2021-10-01] MEDS: METOPROLOL TARTRATE 25 MG TABLET PO SCH ×2 (09:08→21:16)
[2021-10-01] MEDS: SERTRALINE 100 MG TABLET PO SCH (09:08)
[2021-10-01] MEDS: THEOPHYLLINE ER (24 HR) 400 MG TABLET PO SCH (09:09)
[2021-10-01] MEDS: rOPINIRole 0.25 MG TABLET PO SCH ×2 (09:09→21:15)
[2021-10-01] MEDS: TAMSULOSIN 0.4 MG CAPSULE PO SCH ×2 (09:10→21:16)
[2021-10-01] MEDS: APIXABAN 5 MG TABLET PO SCH ×2 (09:10→21:16)
[2021-10-01] MEDS: PANTOPRAZOLE 40 MG TABLET PO SCH (09:11)
[2021-10-01] MEDS: ASPIRIN EC 81 MG TABLET PO SCH (09:11)
[2021-10-01] MEDS: FUROSEMIDE 40 MG TABLET PO SCH (09:11)
[2021-10-01] MEDS: POLYETHYLENE GLYCOL POWDER 17 GM PACK PO SCH (09:11)
[2021-10-01] MEDS: DUTASTERIDE 0.5 MG CAPSULE PO SCH (09:11)
[2021-10-01] MEDS: predniSONE 20 MG TABLET PO SCH ×2 (09:16→21:16)
[2021-10-01] MEDS: UMECLIDINIUM INH SCH (09:16)
[2021-10-01] MEDS: [UNRECOGNIZED DRUG - OTHER] INH SCH (09:16)
[2021-10-01] MEDS: ALBUTEROL/IPRATROPIUM 3 ML NEB RESP TX PRN (11:30)
[2021-10-01] MEDS: ROSUVASTATIN 20 MG TABLET PO SCH (21:15)
[2021-10-01] MEDS: MELATONIN 3 MG TABLET PO SCH (21:15)
[2021-10-02 00:39] LABS: Eosinophils # 0.1 10*3/uL (0.0-0.87); Eosinophils % 0.5 % (0.00-10.9); Hematocrit 29.2 VOL% (42.0-52.0); Hemoglobin 8.5 GM/DL (14.0-18.0); Immature Granulocytes % 1.4 %; Immature Granulocytes Absolute 0.13 #; Lymphocytes # 0.9 10*3/uL (1.4-4.0); Lymphocytes % 8.9 % (21.2-54.2); Mean Corpuscular HGB Conc 29.1 GM/DL (32-36); Mean Corpuscular Volume 76.2 FL (87-102); Monocytes % 9.4 % (1.7-12.7); Neutrophils % 79.8 % (38.7-73.9); Platelet Count 224 T/CUMM (130-400); Red Blood Count 3.83 MC/CUMM (3.8-5.5); Red Cell Distribution Width 20.4 % (9.3-17.3); White Blood Count 9.6 T/CUMM (4-12)
[2021-10-02 00:56] LABS: Calcium 8.6 MG/DL (8.5-10.1); Osmolality,Calculated 274.8 MOS/KG (273-304); Potassium 3.1 MMOL/L (3.5-5.1)
[2021-10-02] MEDS: VANCOMYCIN INJ 1,000 MG in SODIUM CHLORIDE 0.9% 250 ML IV SCH ×2 (00:59→17:34)
[2021-10-02] MEDS: ALBUTEROL/IPRATROPIUM 3 ML NEB RESP TX SCH ×4 (01:00→19:08)
[2021-10-02 02:02] LABS: Reactive Lymphocytes 2+
[2021-10-02 02:07] LABS: Hypochromasia 3+; Ovalocytes 2+; Platelet Estimate Normal; Schistocytes Few
[2021-10-02 02:08] LABS: Microcytosis 1+
[2021-10-02 02:09] LABS: Anisocytosis 1+
[2021-10-02] MEDS: TAMSULOSIN 0.4 MG CAPSULE PO SCH ×2 (09:13→20:58)
[2021-10-02] MEDS: DOCUSATE SODIUM 100 MG CAPSULE PO SCH ×2 (09:13→20:58)
[2021-10-02] MEDS: rOPINIRole 0.25 MG TABLET PO SCH ×2 (09:13→20:58)
[2021-10-02] MEDS: METOPROLOL TARTRATE 25 MG TABLET PO SCH ×2 (09:13→20:59)
[2021-10-02] MEDS: FUROSEMIDE 40 MG TABLET PO SCH (09:13)
[2021-10-02] MEDS: THEOPHYLLINE ER (24 HR) 400 MG TABLET PO SCH (09:13)
[2021-10-02] MEDS: ASPIRIN EC 81 MG TABLET PO SCH (09:13)
[2021-10-02] MEDS: predniSONE 20 MG TABLET PO SCH ×2 (09:14→20:59)
[2021-10-02] MEDS: PANTOPRAZOLE 40 MG TABLET PO SCH (09:14)
[2021-10-02] MEDS: DUTASTERIDE 0.5 MG CAPSULE PO SCH (09:14)
[2021-10-02] MEDS: APIXABAN 5 MG TABLET PO SCH ×2 (09:15→20:59)
[2021-10-02] MEDS: UMECLIDINIUM INH SCH (09:15)
[2021-10-02] MEDS: [UNRECOGNIZED DRUG - OTHER] INH SCH (09:15)
[2021-10-02] MEDS: SERTRALINE 100 MG TABLET PO SCH (09:15)
[2021-10-02] MEDS: PREGABALIN 50 MG CAPSULE PO SCH ×2 (09:15→20:58)
[2021-10-02] MEDS: ALBUTEROL/IPRATROPIUM 3 ML NEB RESP TX PRN (10:30)
[2021-10-02 10:39] LABS: ABG Base Excess 14.7 MMOL/L (-2.5-2.5); ABG HCO3 38.5 MMOL/L (20-26); ABG PH 7.452 (7.35-7.45); ABG PO2 62.3 MM HG (80-95); ABG TCO2 37.9 MMOL/L (23-27)
[2021-10-02] MEDS ORDERED: MAGNESIUM HYDROXIDE SUSP 30 ML UDCUP PO PRN (13:37)
[2021-10-02] MEDS: AZITHROMYCIN 250 MG TABLET PO SCH (15:43)
[2021-10-02] MEDS: BUDESONIDE 0.25 MG/2 ML NEB RESP TX SCH (19:08)
[2021-10-02] MEDS: ROSUVASTATIN 20 MG TABLET PO SCH (20:58)
[2021-10-02] MEDS: MELATONIN 3 MG TABLET PO SCH (20:58)
[2021-10-03] MEDS: ALBUTEROL/IPRATROPIUM 3 ML NEB RESP TX SCH ×4 (00:54→19:24)
[2021-10-03 06:01] LABS: Eosinophils # 0.2 10*3/uL (0.0-0.87); Eosinophils % 1.4 % (0.00-10.9); Hematocrit 27.8 VOL% (42.0-52.0); Hemoglobin 8.5 GM/DL (14.0-18.0); Immature Granulocytes % 0.6 %; Immature Granulocytes Absolute 0.07 #; Lymphocytes % 9.1 % (21.2-54.2); Mean Corpuscular HGB Conc 30.6 GM/DL (32-36); Mean Corpuscular Volume 78.1 FL (87-102); Monocytes % 8.6 % (1.7-12.7); Neutrophils % 80.3 % (38.7-73.9); Platelet Count 153 T/CUMM (130-400); Red Blood Count 3.56 MC/CUMM (3.8-5.5); Red Cell Distribution Width 20.9 % (9.3-17.3); White Blood Count 11.3 T/CUMM (4-12)
[2021-10-03 06:45] LABS: Calcium 8.5 MG/DL (8.5-10.1); Osmolality,Calculated 281.1 MOS/KG (273-304); Potassium 3.1 MMOL/L (3.5-5.1)
[2021-10-03] MEDS: BUDESONIDE 0.25 MG/2 ML NEB RESP TX SCH ×3 (08:07→19:24)
[2021-10-03] MEDS: ASPIRIN EC 81 MG TABLET PO SCH (09:42)
[2021-10-03] MEDS: POLYETHYLENE GLYCOL POWDER 17 GM PACK PO SCH (09:42)
[2021-10-03] MEDS: FUROSEMIDE 40 MG TABLET PO SCH (09:42)
[2021-10-03] MEDS: predniSONE 20 MG TABLET PO SCH ×2 (09:42→21:48)
[2021-10-03] MEDS: rOPINIRole 0.25 MG TABLET PO SCH ×2 (09:43→21:48)
[2021-10-03] MEDS: PREGABALIN 50 MG CAPSULE PO SCH ×2 (09:43→21:48)
[2021-10-03] MEDS: TAMSULOSIN 0.4 MG CAPSULE PO SCH ×2 (09:43→21:48)
[2021-10-03] MEDS: DOCUSATE SODIUM 100 MG CAPSULE PO SCH ×2 (09:43→21:47)
[2021-10-03] MEDS: DUTASTERIDE 0.5 MG CAPSULE PO SCH (09:43)
[2021-10-03] MEDS: APIXABAN 5 MG TABLET PO SCH ×2 (09:43→21:48)
[2021-10-03] MEDS: METOPROLOL TARTRATE 25 MG TABLET PO SCH ×2 (09:43→21:48)
[2021-10-03] MEDS: SERTRALINE 100 MG TABLET PO SCH (09:43)
[2021-10-03] MEDS: AZITHROMYCIN 250 MG TABLET PO SCH (09:43)
[2021-10-03] MEDS: PANTOPRAZOLE 40 MG TABLET PO SCH (09:43)
[2021-10-03] MEDS: THEOPHYLLINE ER (24 HR) 400 MG TABLET PO SCH (09:43)
[2021-10-03] MEDS: [UNRECOGNIZED DRUG - OTHER] INH SCH (09:44)
[2021-10-03] MEDS: UMECLIDINIUM INH SCH (09:44)
[2021-10-03] MEDS ORDERED: POTASSIUM CHLORIDE 20 MEQ TABLET PO ONE (11:00)
[2021-10-03] MEDS: VANCOMYCIN INJ 1,000 MG in SODIUM CHLORIDE 0.9% 250 ML IV SCH (14:00)
[2021-10-03] MEDS ORDERED: ALUMINUM/MAGNES/SIMETH MAX STR 30 ML UDCUP PO PRN (15:02)
[2021-10-03] MEDS: FERRIC GLUCONATE COMPLEX 125 MG in SODIUM CHLORIDE 0.9% 100 ML IV SCH (16:59)
[2021-10-03] MEDS: MELATONIN 3 MG TABLET PO SCH (21:48)
[2021-10-03] MEDS: ROSUVASTATIN 20 MG TABLET PO SCH (21:48)
[2021-10-04] MEDS: ALBUTEROL/IPRATROPIUM 3 ML NEB RESP TX SCH ×5 (01:48→19:55)
[2021-10-04 05:56] LABS: Calcium 8.4 MG/DL (8.5-10.1); Potassium 3.7 MMOL/L (3.5-5.1)
[2021-10-04 06:04] LABS: Osmolality,Calculated 282.4 MOS/KG (273-304)
[2021-10-04 06:15] LABS: Basophils % 0.1 % (0.0-0.8); Eosinophils % 0.1 % (0.00-10.9); Hematocrit 26.8 VOL% (42.0-52.0); Hemoglobin 8.2 GM/DL (14.0-18.0); Immature Granulocytes % 0.5 %; Immature Granulocytes Absolute 0.05 #; Lymphocytes # 0.4 10*3/uL (1.4-4.0); Lymphocytes % 3.6 % (21.2-54.2); Mean Corpuscular HGB Conc 30.6 GM/DL (32-36); Mean Corpuscular Volume 78.6 FL (87-102); Monocytes % 7.3 % (1.7-12.7); Neutrophils % 88.4 % (38.7-73.9); Platelet Count 183 T/CUMM (130-400); Red Blood Count 3.41 MC/CUMM (3.8-5.5); Red Cell Distribution Width 21.2 % (9.3-17.3); White Blood Count 9.9 T/CUMM (4-12)
[2021-10-04 06:21] LABS: Hypochromasia 1+; Lymphocytes 5 % (20-55); Microcytosis 1+; Platelet Estimate Normal; Segmented Neutrophils 91 % (50-85); Total Cells Counted 100
[2021-10-04] MEDS: VANCOMYCIN INJ 1,000 MG in SODIUM CHLORIDE 0.9% 250 ML IV SCH (06:25)
[2021-10-04] MEDS: BUDESONIDE 0.25 MG/2 ML NEB RESP TX SCH ×2 (06:45→19:55)
[2021-10-04] MEDS: TAMSULOSIN 0.4 MG CAPSULE PO SCH ×2 (09:18→22:00)
[2021-10-04] MEDS: ASPIRIN EC 81 MG TABLET PO SCH (09:18)
[2021-10-04] MEDS: FUROSEMIDE 40 MG TABLET PO SCH (09:18)
[2021-10-04] MEDS: PANTOPRAZOLE 40 MG TABLET PO SCH (09:18)
[2021-10-04] MEDS: SERTRALINE 100 MG TABLET PO SCH (09:18)
[2021-10-04] MEDS: THEOPHYLLINE ER (24 HR) 400 MG TABLET PO SCH (09:18)
[2021-10-04] MEDS: DOCUSATE SODIUM 100 MG CAPSULE PO SCH ×2 (09:18→22:00)
[2021-10-04] MEDS: PREGABALIN 50 MG CAPSULE PO SCH ×2 (09:18→22:00)
[2021-10-04] MEDS: rOPINIRole 0.25 MG TABLET PO SCH ×2 (09:18→22:00)
[2021-10-04] MEDS: METOPROLOL TARTRATE 25 MG TABLET PO SCH ×2 (09:19→22:00)
[2021-10-04] MEDS: UMECLIDINIUM INH SCH (09:19)
[2021-10-04] MEDS: FERRIC GLUCONATE COMPLEX 125 MG in SODIUM CHLORIDE 0.9% 100 ML IV SCH (09:19)
[2021-10-04] MEDS: AZITHROMYCIN 250 MG TABLET PO SCH (09:19)
[2021-10-04] MEDS: DUTASTERIDE 0.5 MG CAPSULE PO SCH (09:19)
[2021-10-04] MEDS: predniSONE 20 MG TABLET PO SCH ×2 (09:19→22:00)
[2021-10-04] MEDS: [UNRECOGNIZED DRUG - OTHER] INH SCH (09:19)
[2021-10-04] MEDS: APIXABAN 5 MG TABLET PO SCH ×2 (09:19→22:00)
[2021-10-04] MEDS: POLYETHYLENE GLYCOL POWDER 17 GM PACK PO SCH (10:58)
[2021-10-04] MEDS: MELATONIN 3 MG TABLET PO SCH (22:00)
[2021-10-04] MEDS: ROSUVASTATIN 20 MG TABLET PO SCH (22:00)
[2021-10-05 05:53] LABS: Basophils % 0.1 % (0.0-0.8); Hematocrit 27.8 VOL% (42.0-52.0); Hemoglobin 8.1 GM/DL (14.0-18.0); Immature Granulocytes % 0.7 %; Immature Granulocytes Absolute 0.07 #; Lymphocytes # 0.4 10*3/uL (1.4-4.0); Lymphocytes % 3.8 % (21.2-54.2); Mean Corpuscular HGB Conc 29.1 GM/DL (32-36); Mean Corpuscular Volume 79.7 FL (87-102); Monocytes % 9.1 % (1.7-12.7); Neutrophils % 86.3 % (38.7-73.9); Platelet Count 198 T/CUMM (130-400); Red Blood Count 3.49 MC/CUMM (3.8-5.5); Red Cell Distribution Width 21.9 % (9.3-17.3); White Blood Count 10.6 T/CUMM (4-12)
[2021-10-05 05:58] LABS: Calcium 9.1 MG/DL (8.5-10.1); Osmolality,Calculated 281.4 MOS/KG (273-304); Potassium 3.6 MMOL/L (3.5-5.1)
[2021-10-05 06:32] LABS: Lymphocytes 4 % (20-55); Segmented Neutrophils 92 % (50-85); Total Cells Counted 100
[2021-10-05 06:34] LABS: Hypochromasia Slight; Microcytosis Slight; Platelet Estimate Adequate
[2021-10-05] MEDS: ALBUTEROL/IPRATROPIUM 3 ML NEB RESP TX SCH ×3 (07:20→19:06)
[2021-10-05] MEDS: BUDESONIDE 0.25 MG/2 ML NEB RESP TX SCH ×2 (07:20→19:06)
[2021-10-05] MEDS: ASPIRIN EC 81 MG TABLET PO SCH (09:01)
[2021-10-05] MEDS: POLYETHYLENE GLYCOL POWDER 17 GM PACK PO SCH (09:01)
[2021-10-05] MEDS: SERTRALINE 100 MG TABLET PO SCH (09:02)
[2021-10-05] MEDS: PANTOPRAZOLE 40 MG TABLET PO SCH (09:02)
[2021-10-05] MEDS: THEOPHYLLINE ER (24 HR) 400 MG TABLET PO SCH (09:02)
[2021-10-05] MEDS: TAMSULOSIN 0.4 MG CAPSULE PO SCH ×2 (09:02→21:15)
[2021-10-05] MEDS: METOPROLOL TARTRATE 25 MG TABLET PO SCH ×2 (09:02→21:17)
[2021-10-05] MEDS: rOPINIRole 0.25 MG TABLET PO SCH ×2 (09:02→21:16)
[2021-10-05] MEDS: AZITHROMYCIN 250 MG TABLET PO SCH (09:02)
[2021-10-05] MEDS: predniSONE 20 MG TABLET PO SCH ×2 (09:02→21:16)
[2021-10-05] MEDS: FUROSEMIDE 40 MG TABLET PO SCH (09:02)
[2021-10-05] MEDS: DOCUSATE SODIUM 100 MG CAPSULE PO SCH ×2 (09:02→21:16)
[2021-10-05] MEDS: PREGABALIN 50 MG CAPSULE PO SCH ×2 (09:02→21:16)
[2021-10-05] MEDS: APIXABAN 5 MG TABLET PO SCH ×2 (09:03→21:16)
[2021-10-05] MEDS: DUTASTERIDE 0.5 MG CAPSULE PO SCH (09:03)
[2021-10-05] MEDS: FERRIC GLUCONATE COMPLEX 125 MG in SODIUM CHLORIDE 0.9% 100 ML IV SCH (09:10)
[2021-10-05] MEDS: [UNRECOGNIZED DRUG - OTHER] INH SCH (09:11)
[2021-10-05] MEDS: UMECLIDINIUM INH SCH (09:11)
[2021-10-05] MEDS: ROSUVASTATIN 20 MG TABLET PO SCH (21:15)
[2021-10-05] MEDS: MELATONIN 3 MG TABLET PO SCH (21:15)
[2021-10-06] MEDS: ALBUTEROL/IPRATROPIUM 3 ML NEB RESP TX SCH ×2 (01:37→07:20)
[2021-10-06] MEDS: BUDESONIDE 0.25 MG/2 ML NEB RESP TX SCH (07:20)
[2021-10-06 07:38] VITALS: BP 143/53
[2021-10-06] MEDS: POLYETHYLENE GLYCOL POWDER 17 GM PACK PO SCH (09:22)
[2021-10-06] MEDS: TAMSULOSIN 0.4 MG CAPSULE PO SCH (09:22)
[2021-10-06] MEDS: [UNRECOGNIZED DRUG - OTHER] INH SCH (09:22)
[2021-10-06] MEDS: UMECLIDINIUM INH SCH (09:22)
[2021-10-06] MEDS: THEOPHYLLINE ER (24 HR) 400 MG TABLET PO SCH (09:22)
[2021-10-06] MEDS: AZITHROMYCIN 250 MG TABLET PO SCH (09:22)
[2021-10-06] MEDS: ASPIRIN EC 81 MG TABLET PO SCH (09:22)
[2021-10-06] MEDS: PREGABALIN 50 MG CAPSULE PO SCH (09:22)
[2021-10-06] MEDS: SERTRALINE 100 MG TABLET PO SCH (09:22)
[2021-10-06] MEDS: DOCUSATE SODIUM 100 MG CAPSULE PO SCH (09:23)
[2021-10-06] MEDS: APIXABAN 5 MG TABLET PO SCH (09:23)
[2021-10-06] MEDS: PANTOPRAZOLE 40 MG TABLET PO SCH (09:23)
[2021-10-06] MEDS: FERRIC GLUCONATE COMPLEX 125 MG in SODIUM CHLORIDE 0.9% 100 ML IV SCH (09:23)
[2021-10-06] MEDS: FUROSEMIDE 40 MG TABLET PO SCH (09:23)
[2021-10-06] MEDS: DUTASTERIDE 0.5 MG CAPSULE PO SCH (09:23)
[2021-10-06] MEDS: rOPINIRole 0.25 MG TABLET PO SCH (09:23)
[2021-10-06] MEDS: predniSONE 20 MG TABLET PO SCH (09:23)
[2021-10-06] MEDS: METOPROLOL TARTRATE 25 MG TABLET PO SCH (09:23)
== END 2021-10-06 10:58 | DRG 871 ==
LOC: EDBD → EDUNIT# → N.ED 03:10 → N.EDINP 08:43 → SUATTDRO 08:43 → N.ICU 19:15 → N.5E 09-30 16:25
PROVIDERS: ADMIT Internal Medicine; ATTEND Internal Medicine